=== PATIENT | female | born 1975 | race Two or more races ===

== ENCOUNTER 2020-04-14 12:58 | Outpatient (REF) | payer MEDICAID, SELFPAY ==
--- NOTE | 2020-04-14 13:03 | MM_ITS ---
EXAMINATION: MM SCREENING DIGITAL BREAST TOMOSYNTHESIS, BILATERAL CLINICAL INFORMATION: Screening. Asymptomatic. The lifetime risk of breast cancer based on the Tyrer-Cuzick Model is 6.4%. COMPARISON: Mammography: August 02, 2017 and May 18, 2016 TECHNIQUE: Digital breast tomosynthesis is performed in both the craniocaudal and mediolateral oblique views along with computer-aided detection (CAD). Synthesized 2D images are generated from the tomosynthesis. FINDINGS: There are scattered areas of fibroglandular density (ACR BI-RADS breast composition Category b). There is an increasing grouping of calcifications about the upper outer aspect of the right breast approximately 4 cm from the nipple. No new abnormal dominant mass is identified within the right breast. There is stable parenchymal pattern of the left breast without new abnormal mass or grouping of microcalcifications. MM/MM tomosynthesis screening BI IMPRESSION: Increasing grouping of calcifications about the upper outer aspect of the right breast. Recommend spot magnification views. ASSESSMENT: BI-RADS 0: Incomplete - Need Additional Imaging Evaluation RECOMMENDATION: 1. Additional views of the right breast. 2. Targeted ultrasound if warranted after review of the additional views. 3. Radiology department staff will contact the patient for additional imaging. This patient's information was entered into a reminder system with a target due date for their next mammogram.
== END 2020-04-14 12:59 | disposition home or self-care (01) ==
LOC: HO.MAMMO 12:58
PROVIDERS: PCP Internal Medicine; Visit Provider Internal Medicine
DX: Z12.31 Encounter for screening mammogram for malignant neoplasm of breast (principal)
CPT/HCPCS: 77063; 77067

== ENCOUNTER 2020-04-21 10:55 | Outpatient (REF) | payer MEDICAID, SELFPAY ==
--- NOTE | 2020-04-21 | MM_ITS ---
EXAMINATION: MM DIAGNOSTIC DIGITAL MAMMOGRAPHY, RIGHT CLINICAL INFORMATION: Calcifications. COMPARISON: Mammography: 04/14/2020 and studies dating back to 05/18/2016. TECHNIQUE: Digital mammography is performed in the following views: Spot magnification views in craniocaudal and 90-degree mediolateral projections. FINDINGS: There are scattered areas of fibroglandular density (ACR BI-RADS breast composition Category b). There is persistence of an indeterminate grouping of microcalcifications about the lateral aspect of the right breast approximately 4 cm from the nipple for which stereotactic core biopsy is recommended. Results are provided to the patient at time of visit by the technologist. Patient navigator notified referring provider's office on 04/11/2020. MM/MM added views RT IMPRESSION: Indeterminate grouping of calcifications lateral right breast for which stereotactic core biopsy is recommended. ASSESSMENT: BI-RADS 4: Suspicious. RECOMMENDATION: Stereotactic core biopsy right breast calcifications. This patient's information was entered into a reminder system with a target due date for their next mammogram.
== END 2020-04-21 10:56 | disposition home or self-care (01) ==
LOC: HO.MAMMO 10:55
PROVIDERS: Visit Provider Internal Medicine
DX: R92.1 Mammographic calcification found on diagnostic imaging of breast (principal)
CPT/HCPCS: 77065

== ENCOUNTER 2020-04-27 09:23 | Outpatient (REF) | payer MEDICAID, SELFPAY ==
--- NOTE | 2020-04-27 09:28 | MM_ITS ---
EXAMINATION: STEREOTACTIC TOMOSYNTHESIS-GUIDED VACUUM-ASSISTED BREAST BIOPSY, RIGHT SPECIMEN RADIOGRAPH, RIGHT POST PROCEDURE DIGITAL MAMMOGRAM, RIGHT CLINICAL INFORMATION: Right breast calcifications.. COMPARISON: April 21, 2020 and studies dating back to May 18, 2016. TECHNIQUE/PROCEDURE: Informed consent was obtained from the patient after discussion of the benefits, risks, and alternatives to biopsy today. Patient appeared to understand. Gave opportunity for questions. Patient signed consent form. BIOPSY TABLE: [employer] [facility] Affirm Prone Biopsy System. LESION: Calcifications upper outer aspect right breast. LOCAL ANESTHESIA: 8 mL 1% lidocaine; 18 mL 1% lidocaine with epinephrine. DERMATOTOMY: Single skin mellisa dermatotomy performed. NEEDLE: [employer] Eviva 9-gauge vacuum assisted core biopsy device. APPROACH: Lateral. TARGETIN-D karely. CORES: 18. CLIP: [employer] T-shaped marker. SPECIMEN RADIOGRAPH: Specimen radiograph is taken in separate room using digital mammography. The index calcifications are in the excised cores. POST PROCEDURE UNILATERAL DIGITAL MAMMOGRAM: The post biopsy mammogram is performed in separate room using separate digital mammography equipment from the biopsy procedure. Craniocaudal and 90 degree mediolateral views are obtained. The breasts are heterogeneously dense, which may obscure small masses (breast composition category: c). The clip marker is in position. The calcifications are markedly decreased at the biopsy site. No gross hematoma. The patient tolerated the procedure well. No immediate complications. Home instructions reviewed with the patient. Final pathology results are pending. MM/MM stereotactic loc RT IMPRESSION: 1. Digital tomosynthesis-guided core biopsy right breast with clip placement. 2. Specimen radiograph taken and post procedure mammogram. There is satisfactory positioning of the biopsy clip. 3. Final pathology results pending. An addendum report will be issued.
== END 2020-04-27 09:24 | disposition home or self-care (01) ==
LOC: HO.MAMMO 09:23
PROVIDERS: PCP Internal Medicine; Visit Provider Surgery
DX: R92.8 Other abnormal and inconclusive findings on diagnostic imaging of breast (principal); R92.1 Mammographic calcification found on diagnostic imaging of breast
CPT/HCPCS: 19283; 88305; 99212; A4648

== ENCOUNTER → 2020-04-29 10:10 | Outpatient (REF) | payer MEDICAID, SELFPAY ==
--- NOTE | 2020-04-29 10:14 | ECG_ITS ---
Hook-up date: 2020-04-29 10:29:00 Duration: 47:59:00 Test Indications: PALPITATIONS Medications: 584360 QRS complexes 20 Ventricular ectopics which represent <1 % of total QRS comp. 32 Supraventricular ectopics which represent <1 % of total QRS comp. * Paced QRS complexs which represent % of total QRS comp. VENTRICULAR ECTOPY 20 Isolated 0 Bigeminal Cycles 0 Couplets 0 Runs 0 Beats in Runs * Beats LONGEST at * BPM at :: -- * Beats FASTEST at * BPM at :: -- SUPRAVENTRICULAR ECTOPY 32 Isolated 0 Couplets 0 Runs 0 Beats in Runs * Beats LONGEST at * BPM at :: -- * Beats FASTEST at * BPM at :: -- HEART RATES 63 MIN at 06:23:57 2020-04-30 85 AVG 134 MAX at 10:53:34 2020-04-29 LONGEST RR 0.9920 secs at 06:21:24 2020-04-30 S-T LEVELS Channel 1 - 128 mm at 10:29:00 2020-04-29 - 128 mm at 10:29:00 2020-04-29 Channel 2 - 128 mm at 10:29:00 2020-04-29 - 128 mm at 10:29:00 2020-04-29 Channel 3 - 128 mm at 02:94:81 -- - 128 mm at 02:94:81 Underlying rhythm is sinus; Average ventricular rate 85/min; range 63-134/min; Rare, isolated, supraventricular and ventricular ectopy; No sustained arrhythmias; Patient did not report any symptoms in the diary Referred By: Karen Burns Overread By: RAVI MORALES
== END ==
LOC: HO.CARD 10:10
PROVIDERS: Visit Provider Internal Medicine
DX: R00.2 Palpitations (principal); R30.0 Dysuria
CPT/HCPCS: 93225; 93226

== ENCOUNTER → 2020-05-04 10:42 | Outpatient (BNVA) | payer MEDICAID, SELFPAY | PROVIDERS: PCP Internal Medicine; Visit Provider Surgery | DX: R92.8 Other abnormal and inconclusive findings on diagnostic imaging of breast (principal); Z98.890 Other specified postprocedural states | CPT/HCPCS: 99212 ==

== ENCOUNTER → 2020-05-05 15:58 | Outpatient (BNVA) | payer MEDICAID, SELFPAY | PROVIDERS: PCP Internal Medicine; Referring Provider Internal Medicine; Visit Provider Internal Medicine Gastroenterology | DX: Z76.89 Persons encountering health services in other specified circumstances (principal) ==

== ENCOUNTER 2020-05-16 08:32 | Outpatient (REF) | payer MEDICAID, SELFPAY ==
[2020-05-16 13:10] LABS: Imm Gran Abs Auto 0.01 X10*3/uL (0.00-0.03); Imm Gran Pct Auto 0.2 % (0.0-0.4); MANUAL DIFF FLAG SCAN; Mean Platelet Volume 11.3 fL (9.4-12.3); Neutrophils Percent Auto 62.5 % (45-73); PLT CLUMP 1; Red Cell Distribution Width 12.7 % (11.0-16.0); SCAN SMEAR FLAG 1
[2020-05-16 13:12] LABS: Basophils Percent Auto 0.2 % (0-2); Eosinophils Absolute Auto 0.1 X10*3/uL (0.0-0.4); Eosinophils Percent Auto 1.9 % (0-4); Hematocrit 38.8 % (37-47); Hemoglobin 12.7 g/dl (12.0-16.0); Lymphocytes Absolute Auto 1.1 X10*3/uL (1.2-4.9); Lymphocytes Percent Auto 26.2 % (20-40); Mean Corpuscular HGB Conc 32.7 g/dl (31.0-35.0); Mean Corpuscular Hemoglobin 29.1 pg (27.0-33.0); Monocytes Absolute Auto 0.4 X10*3/uL (0.1-1.2); Neutrophils Absolute Auto 2.7 X10*3/uL (2.0-8.3); Platelet Count 115 X10*3/uL (160-400); Red Blood Count 4.36 X10*6/uL (4.20-5.50); White Blood Count 4.3 X10*3/uL (4.8-10.8)
[2020-05-16 13:16] LABS: INTERNATIONAL NORM RATIO 1.1 (0.9-1.1); Prothrombin Time 13.5 SEC (10.8-13.0)
[2020-05-16 13:39] LABS: Alanine Aminotransferase 35 U/L (0-31); Albumin Level 4.2 g/dL (3.5-5.0); Alkaline Phosphatase 69 U/L (39-117); Anion Gap 12 (12-20); Aspartate Amino Transferase 28 U/L (5-31); Bilirubin Total 0.5 mg/dL (0.0-1.0); Blood Urea Nitrogen 11 mg/dL (9-16); Calcium 9.2 mg/dL (8.4-10.2); Carbon Dioxide 29 mmol/L (22-29); Chloride 100 mmol/L (96-108); Estimated Glomerular Filt Rate > 60; Glucose Random 178 mg/dL (60-115); Lipase 35 U/L (8-78); Potassium 3.7 mmol/l (3.3-5.1); Sodium 137 mmol/L (135-145); Total Protein 7.3 g/dL (6.5-8.0)
== END 2020-05-16 08:33 | disposition home or self-care (01) ==
LOC: HO.LAB 08:32
PROVIDERS: PCP Internal Medicine; Visit Provider Internal Medicine Gastroenterology
DX: K74.60 Unspecified cirrhosis of liver (principal)
CPT/HCPCS: 36415; 80053; 83690; 85025; 85610

== ENCOUNTER 2020-05-24 09:26 | Outpatient (REF) | payer MEDICAID, SELFPAY ==
--- NOTE | 2020-05-24 09:29 | FL_ITS ---
EXAMINATION: FL BARIUM SWALLOW CLINICAL INFORMATION: Dysphagia COMPARISON: None TECHNIQUE: Barium swallow examination is performed using fluoroscopic evaluation in addition to multiple fluoroscopic spot views. The patient is imaged both upright and prone and using both thick and thin sulfate along with effervescent granules. Barium tablet was also administered. Fluoroscopy time: 1.1 minutes DAP: 8.9 Gycm2 Images: 59 FINDINGS: The swallowing mechanism is normal. No aspiration or penetration is seen. Esophageal motility is normal. No hernia is seen. No mass or stricture is seen. The barium tablet passed freely into the stomach. There is gastroesophageal reflux. The stomach appears distended. FL/FL barium swallow IMPRESSION: Gastroesophageal reflux. Distended stomach.
== END 2020-05-24 09:27 | disposition home or self-care (01) ==
LOC: HO.XRAY 09:26
PROVIDERS: Visit Provider Internal Medicine Gastroenterology
DX: R13.10 Dysphagia, unspecified (principal)
CPT/HCPCS: 74220

== ENCOUNTER 2020-05-31 10:33 | Outpatient (REF) | payer MEDICAID, SELFPAY ==
--- NOTE | 2020-05-31 10:36 | US_ITS ---
EXAMINATION: US ABDOMEN COMPLETE CLINICAL INFORMATION: Unspecified cirrhosis of liver. COMPARISON: Ultrasound limited abdomen with elastography 10/22/2019. Renal ultrasound 08/18/2019. CT abdomen and pelvis 07/22/2019. TECHNIQUE: Real-time imaging of the abdominal viscera. FINDINGS: PANCREAS: Visualized pancreas is homogeneous in echotexture. ABDOMINAL AORTA: The proximal, mid, and distal segments are normal in caliber. INFERIOR VENA CAVA: Visualized portions are normal. LIVER: The liver is enlarged with increased diffuse echogenicity. No focal lesion seen. The left lobe measures 16.3 cm. There is no intrahepatic biliary duct dilatation seen. Normal hepatopedal flow seen in the middle portal vein on Doppler exam GALLBLADDER: There are several gallbladder folds visualized. The gallbladder is physiologically distended without evidence of stones, sludge, polyps, wall thickening or pericholecystic fluid. COMMON BILE DUCT: Normal in caliber measuring 0.3 cm in diameter. RIGHT KIDNEY: There is an echogenic stone in the lower pole measuring 0.2 x 0.3 x 0.2 cm. No focal parenchymal lesions. The kidney measures 12.6 cm in maximum dimension. LEFT KIDNEY: There is an echogenic stone in the upper pole measuring 0.4 x 0.4 x 0.3 cm. There are echogenic pyramids. Normal cortical thickness seen. There is no hydronephrosis. No hydronephrosis or focal parenchymal lesions. The kidney measures 13.5 cm in maximum dimension. SPLEEN: The spleen is enlarged and measures 17.5 cm in maximum dimension. FREE FLUID: None. US/US abdomen complete IMPRESSION: 1. Bilateral echogenic renal calculi but no caliectasis seen. There is mild hydronephrosis right kidney. 2. There are echogenic pyramids of left kidney. 3. Mild hepatosplenomegaly.
== END 2020-05-31 10:34 | disposition home or self-care (01) ==
LOC: HO.US 10:33
PROVIDERS: Visit Provider Internal Medicine Gastroenterology
DX: K74.60 Unspecified cirrhosis of liver (principal)
CPT/HCPCS: 76700

== ENCOUNTER → 2020-07-07 09:28 | Outpatient (BNVA) | payer MEDICAID, SELFPAY | PROVIDERS: PCP Internal Medicine; Visit Provider Internal Medicine Gastroenterology | DX: Z76.89 Persons encountering health services in other specified circumstances (principal) ==

== ENCOUNTER → 2020-08-15 14:41 | Outpatient (REF) | payer MEDICAID, SELFPAY ==
--- NOTE | 2020-08-15 15:00 | CA_ITS ---
Transthoracic Echocardiogram Patient (Last, First, Middle): Barb Lo, Gender: Female Date of : 1975 Age: 45 Procedure Date: 08/15/2020 Procedure Type: Transthoracic Echocardiogram Location: OP Height: 162.56 cm Weight: 80.74 kg BSA: 1.86 m2 Heart Rate: bpm BP: 120 / 80 mmHg Heel Seater: MONIQUE Arteaga MD: Karen Burns MD Relations Liaison: Robin Dukes MD Symptoms: E11.9 TYPE 2 DM, I10 HTN, I49.1 ATRIAL PREMATURE DEPOLARIZAT Study Quality: Good ECG Rhythm: Sinus Conclusions: - Normal study Findings Left Ventricle Normal left ventricular size, thickness, and systolic function. The visually estimated ejection fraction is between 60-65%. Diastolic function is normal for age. Right Ventricle Normal right ventricular cavity size and systolic function. Atria Both atria are normal in size. Aortic Valve Normal aortic valve structure and function. There is no aortic valve stenosis. There is no aortic valve regurgitation. Mitral Valve Normal mitral valve structure and function. There is no mitral valve regurgitation. There is no mitral valve stenosis. Pulmonic Valve The pulmonic valve is normal. There is trace pulmonic valve regurgitation. Tricuspid Valve Normal tricuspid valve structure. There is trace tricuspid valve regurgitation. The right ventricular systolic pressure is normal. The right ventricular systolic pressure is 26 mmHg. Normal right atrial pressure. There is no evidence of pulmonary hypertension. Great Vessels All visible segments of the aorta are normal in size. The visualized portions of the pulmonary artery and branches are normal. Venous The inferior vena cava is normal in size and collapses greater than 50% with inspiration. Pericardium/Pleural There is no evidence of pericardial effusion. Prior Study Comparison No prior study available for comparison. Measurements 2D Linear Measurements IVSd: 0.93 0.6-0.9/0.6-1.0 cm LVIDd: 4.53 3.9-5.3/4.2-5.9 cm LVIDd Index: 2.44 2.4-3.2/2.2-3.1 cm/m2 LVIDs: 2.88 2.0-3.6 cm LVPWd: 0.91 0.7-1.1 cm Ao Root: 3.30 2.1-3.5 cm LA Diam: 3.60 2.7-3.8/3.0-4.0 cm LAIDs Index: 1.94 1.5-2.3 cm/m2 LV Mass: 171.25 67-162/88-224 g LV Mass Index: 92.07 43-95/49-115 g/m2 LVOT Diam: 2.00 3.0+(-)1.3 cm 2D Systolic Function EF 4C: 65.20 >55% EF 2C: 67.80 >55% EF BiP: 66.30 >55% Mitral Valve MV Pk E: 0.76 MV PK A: 0.90 MV Decel Time: 111.00 E/A: 0.80 E'Lateral: 12.80 E'Medial: 8.49 E/E' Med: 8.90 E/E' Lat: 5.90 PHT: 32.00 MVA PHT: 6.88 Decel [place]: 6.84 Aortic Valve AoV Pk Ajay: 1.49 AoV Mn Ajay: 1.10 AoV VTI: 0.30 AoV Pk Grad: 9.00 Aov Mn Grad: 5.00 LENO Cont.VTI: 2.59 LVOT LVOT Pk Ajay: 1.23 LVOT Mn Ajay: 0.79 LVOT VTI: 0.25 LVOT Pk Grad: 6.00 LVOT Mn Grad: 3.00 LVOT Diam: 2.00 LVOT Area: 3.14 Diastolic Function MV Pk E: 0.76 MV Pk A: 0.90 E/A: 0.80 E'Medial: 8.49 E/E' Med: 8.90 E' Laterial: 12.80 E/E' Lat: 5.90 Tricuspid Valve TR Pk Ajay: 2.41 TR Pk Grad: 23.00 RA Press: 3.00 RVSP: 26.00 Great Vessels Aorta Ao Root-2D: 3.30 2.0-3.7 cm Ao Asc: 3.00 2.1-3.4 cm Ao Arch: 2.80 Updated in Other Vendor System with Status of Final Robin Dukes MD electronically signed on 08/16/2020 9:33:15 AM with status of Final
== END ==
LOC: HO.CARD 14:41
PROVIDERS: PCP Internal Medicine; Visit Provider Internal Medicine
DX: I49.1 Atrial premature depolarization (principal); I10 Essential (primary) hypertension; E11.9 Type 2 diabetes mellitus without complications
CPT/HCPCS: 93306

== ENCOUNTER → 2020-10-05 09:52 | Outpatient (REF) | payer MEDICAID, SELFPAY | LOC: HO.SL 09:52 | PROVIDERS: PCP Internal Medicine; Visit Provider Internal Medicine | DX: G47.33 Obstructive sleep apnea (adult) (pediatric) (principal); R06.00 Dyspnea, unspecified; R06.83 Snoring | CPT/HCPCS: 95806 ==

== ENCOUNTER 2021-08-22 09:18 | Emergency (ER) | payer MEDICAID, SELFPAY ==
--- NOTE | ~2021-08-22 | XR_ITS ---
EXAMINATION: XR LUMBOSACRAL SPINE CLINICAL INFORMATION: Fall. Back pain. COMPARISON: None TECHNIQUE: Three views of the lumbosacral spine. FINDINGS: The vertebral bodies and posterior elements are normal. The disc spaces are preserved and the vertebral alignment is normal. The paraspinal soft tissues are normal. XR/XR lumbar spine 2-3V IMPRESSION: Unremarkable examination.
[2021-08-22 09:34] VITALS: BP 170/95; PULSE 86; RESP 18; TEMP 36.6; O2SAT 99; BMI 28.9
[2021-08-22 10:16] LABS: Appearance Urine HAZY; Color Urine YELLOW; Glucose Urine UA 500 MG/DL (NEG); Leukocyte Esterase Urine NEG (NEG); Nitrite Urine NEG (NEG); Urine Blood NEG (NEG); Urine Ketones NEG (NEG); Urine Protein NEG (NEG-TRACE)
[2021-08-22] MEDS: Lidocaine 4 % Patch ADH..PATCH 1 PATCH TRANSDERMA (10:23)
[2021-08-22] MEDS: NaPROXEN 500 MG TABLET PO (10:23)
[2021-08-22] MEDS: diazePAM 5 MG TABLET 10 MG PO (10:23)
--- NOTE | 2021-08-22 11:14 | ED.FALL ---
HPI - Fall General Chief Complaint: Fall Stated Complaint: fall/pain in lower back Time Seen by Provider: 08/22/21 09:51 Source: patient and family Mode of arrival: ambulatory Limitations: language barrier (Turkmen-speaking) History of Present Illness HPI Narrative: 46-year-old female with a past medical history of type 2 diabetes reports that she is not on any oral or insulin due to her doctor took her off due to it was giving her multiple side effects, hypertension, fibromyalgia, IBS and chronic constipation who is Turkmen-speaking presenting to the ED with spouse at bedside with complaints of lower back pain after she had a mechanical fall on Saturday night were she was trying to stand up but she slipped when she tried to stand up and she hit the hard part of the couch in her lower right side of her back. Since then she has been having pain. She denies head injury or loss of consciousness. She denies being on any blood thinners. She denies any neck injury or upper back injury or pain. She denies any extremity injuries or any other injuries complaints or concerns at this time. She denies any urinary bowel incontinence or retention. She denies any IV drug use or any fevers or radiation of the pain or any other symptoms complaints or concerns or injuries. MD complaint: fall Onset (ago): day(s) Fall from: other (She was transitioning from sitting to standing when she fell) Fall witnessed: yes, by family Place fall occurred: home Loss of consciousness: none Prolonged down time: no Symptoms prior to fall: none Context: tripped/slipped Location of injury: back Severity: moderate Quality: aching and spasming Associated symptoms (after fall): denies Related Data Home Medications Medication Instructions Recorded Confirmed lisinopril 5 mg tablet 5 mg PO DAILY 04/27/20 07/07/20 cholecalciferol (vitamin D3) 50 50 mcg PO DAILY 05/05/20 07/07/20 mcg (2,000 unit) capsule trazodone 50 mg tablet 50 mg PO BEDTIME 05/05/20 07/07/20 glimepiride 4 mg tablet 4 mg PO BID tab 07/07/20 07/07/20 Previous Rx's Medication Instructions Recorded omeprazole 20 mg capsule,delayed 20 mg PO BID 30 Days #60 cap 05/05/20 release sennosides 8.6 mg-docusate sodium 1 tab-cap PO BEDTIME 30 Days #30 07/07/20 50 mg tablet (Senna with Docusate tab Sodium) diazepam 10 mg tablet (Valium) 10 mg PO Q8H PRN #14 tab 08/22/21 lidocaine 5 % topical patch 1 patch TOPICAL DAILY #15 ea 08/22/21 (Lidoderm) metformin 500 mg tablet 500 mg PO BID #60 tab 08/22/21 naproxen 500 mg tablet 500 mg PO BID PRN #14 tab 08/22/21 Allergies Allergy/AdvReac Type Severity Reaction Status Date / Time hydrocodone [From VICODIN] Allergy Unknown RASH Verified 08/22/21 09:34 penicillin G Allergy Unknown Rash Verified 08/22/21 09:34 simvastatin [SIMVASTATIN] Allergy Unknown RASH Verified 08/22/21 09:34 Review of Systems Review of Systems: Constitutional : No trauma, No Weight loss, No Fever, No Chills, ENT/Mouth : No Hearing loss, No Ear Pain, No Nasal Congestion, No Sinus Pain, No Hoarseness, No sore throat, No Rhinorrhea, No Swallowing Difficulty Cardiovascular : No Chest Pain, No SOB Respiratory : No Cough, No Dyspnea Gastrointestinal : No Nausea, No Vomiting, No Diarrhea, No abdominal Pain, No Hematochezia, No Melena Genitourinary : No Dysuria, No Urinary Frequency, No Hematuria, No Urinary or Bowel Incontinence/retention Musculoskeletal : + Back pain, No neck pain, No joint stiffness, No joint swelling Skin : No Skin Lesions, No rash or signs of infection Neuro : No Weakness, No radiation, No Numbness, No Paresthesias, No headache, no loss of bowel or bladder incontinence, no saddle anesthesia, Focal weakness, No radiation Denies history of IV drug usage. Yes all other systems are reviewed and are negative [facility] Past Medical History Attestation statement: The following information was validated with the patient. Medical History Abnormal mammogram of right breast Kidney stones Surgical History History of colonoscopy History of tubal ligation Hx of endoscopy Hx of removal of ovary Family History Family History Maternal Grandmother History of cancer of uterus History of breast cancer Father No problems noted. Mother Family history of high blood pressure Hx of diabetes insipidus Social History Social History Alcohol intake: never Advance Directives: No Advance Directives Information Provided: No Physical Exam Vital Signs: Vital Signs: Last Vital Signs Temp 97.8 F 08/22/21 09:34 Pulse 86 08/22/21 09:34 Resp 18 08/22/21 09:34 BP 170/95 H 08/22/21 09:34 Pulse Ox 99 08/22/21 09:34 BMI result Body Mass Index 28.9 vital signs have been reviewed as normal and appeared to be correct. Blood pressure normal. Heart rate normal. Respiration rate normal. Temperature normal. Oxygen saturation normal. Appearance: Alert. Oriented X3. No acute distress. Head: Normal external exam. Normocephalic. Atraumatic. No Schrader signs noted. No raccoon eyes noted Eyes: PERRLA. EOMI. Conjunctiva and sclera normal. Eyelids normal. ENT: EAC normal. TM's Normal. Pharynx normal. Uvula midline. Moist mucous membranes. No trismus noted. No drooling noted. No muffled voice noted. Neck: Normal inspection. Neck supple. FROM. No adenopathy. Thyroid Normal. No meningeal signs. No neck mass noted. CVS: Normal heart rate and rhythm. Heart sound normal. No murmurs noted. Pulses normal throughout. Respiratory: No respiratory distress. Painless inspiration. Breath sounds normal. No wheezes/rales/rhonchi noted. Chest nontender. No accessory muscle usage noted or decreased air movement noted. Abdomen: Soft and nontender. Bowel sounds normal in all 4 quadrants. No distention noted. No organomegaly noted. No visible injury noted. Back: No CVA tenderness. Full range of motion noted. No obvious deformities, or edema. Mild para-spinal muscular tenderness from lumbar region to coccyx. Full ROM in back and lower extremities. 5/5 strength hip extension/flexion, abduction, adduction. Mild Lumbar pain with hip flexion against resistance. Straight leg raise test negative on right; Straight leg raise test negative on left; Reflexes normal ankle and knee bilaterally; EHL motor strength normal bilaterally. No rashes/lesion/induration/fluctuance or signs infection noted. Skin: Skin warm and dry. Normal skin color. Normal skin turgor. No rashes/lesions/lacerations noted. Extremities: No lower extremity edema. Extremities exhibit normal range of motion. Extremities nontender. Neuro: Oriented X 3. No motor deficit. No sensory deficit. Reflexes normal. Patient has a normal steady gait. Course Course Course Narrative: 10am - 46-year-old female with a past medical history of type 2 diabetes reports that she is not on any oral or insulin due to her doctor took her off due to it was giving her multiple side effects, hypertension, fibromyalgia, IBS and chronic constipation who is Turkmen-speaking presenting to the ED with spouse at bedside with complaints of lower back pain after she had a mechanical fall on Saturday night were she was trying to stand up but she slipped when she tried to stand up and she hit the hard part of the couch in her lower right side of her back. Since then she has been having pain. Patient also reports increased urinary urgency/frequency over the past week. She denies any other injuries complaints or concerns at this time. On exam patient has paraspinous musculature pain no obvious signs of trauma step-offs or deformities. There is no rashes noted. No ecchymosis/abrasions/lacerations or signs of infection noted. She has a normal steady gait. Therefore will obtain an x-ray of lumbar spine provide 10 mg of Valium and 500 mg naproxen and Lidoderm patch and re-evaluate. - X-ray obtained of lumbar spine and negative for any acute processes. - UA was obtained and revealed 500 glucose otherwise no evidence of UTI. - and due to patient reporting that she is not on any medications for her type 2 diabetes will obtain POC then re-evaluate. Reevaluation(s) Reevaluation #1: - POC in the 170s therefore at this time I discussed this with the patient that she does not need any insulin at this time although she should start taking her previously prescribed medications she reports that she was taking metformin 500 mg twice a day and she is requesting me to give her a refill for that therefore will send a script to her pharmacy for metformin 500 mg to take twice a day and explained her that she should follow-up with her doctor for further evaluation treatment and any additional medication and to return if any new or worsening symptoms to follow up with primary care patient understands agrees with this plan. Time: 11:22 [facility] - Fall Medical Records Attestation: I reviewed the patient's medical records. Lab Data Attestation: I reviewed the patient's lab results. Labs: Lab Results 08/22/21 Range/Units 09:56 Urine Color YELLOW Urine Appearance HAZY Urine pH 6.0 (5.0-8.0) Ur Specific [place] 1.020 (1.005-1.025) Urine Protein NEG (NEG-TRACE) MG/DL Urine Glucose (UA) 500 H (NEG) MG/DL Urine Ketones NEG (NEG) MG/DL Urine Blood NEG (NEG) Urine Nitrite NEG (NEG) Ur Leukocyte Esterase NEG (NEG) Imaging Data Lumbar spine x-ray: Attestation: I personally reviewed and interpreted this imaging study as follows: Radiologist's impression: FINDINGS: The vertebral bodies and posterior elements are normal. The disc spaces are preserved and the vertebral alignment is normal. The paraspinal soft tissues are normal. XR/XR lumbar spine 2-3V IMPRESSION: Unremarkable examination. Discharge Plan Discharge Clinical Impression: Fall, Lumbar spine strain, Medication refill Patient Disposition: Home, Self-Care Instructions: Fall Prevention for Older Adults (ED), Low Back Strain (ED), Lower Back Exercises (ED) Additional Instructions: I will restart her back on your metformin that your report you take 500 mg twice a day. Please follow-up with her primary care provider as soon as possible for further evaluation treatment for your diabetes management return if any new or worsening symptoms. Prescriptions: New metformin 500 mg tablet 500 mg PO BID Qty: 60 0RF diazepam [Valium] 10 mg tablet 10 mg PO Q8H PRN (Reason: muscle spasm) Qty: 14 0RF naproxen 500 mg tablet 500 mg PO BID PRN (Reason: pain) Qty: 14 0RF lidocaine [Lidoderm] 5 % adhesive patch,medicated 1 patch topical DAILY Qty: 15 0RF Rx Instructions: leave on most painful area for up to 12 hrs. May be substituted No Action lisinopril 5 mg tablet 5 mg PO DAILY 0RF cholecalciferol (vitamin D3) 50 mcg (2,000 unit) capsule 50 mcg PO DAILY 0RF trazodone 50 mg tablet 50 mg PO BEDTIME 0RF omeprazole 20 mg capsule,delayed release(DR/EC) 20 mg PO BID 30 Days Qty: 60 3RF sennosides-docusate sodium [Senna with Docusate Sodium] 8.6-50 mg tablet 1 tab-cap PO BEDTIME 30 Days Qty: 30 3RF glimepiride 4 mg tablet 4 mg PO BID 0RF Referrals: Karen Burns MD [Primary Care Provider] - 2 days Stand Alone Forms: Work/School Release Print Language: Turkmen
[2021-08-22 11:16] LABS: UPreg QC Valid YES
[2021-08-22 11:18] LABS: Urine Pregnancy NEGATIVE (NEGATIVE)
[2021-08-22 11:23] LABS: Glucose, Whole Blood 175 mg/dL (60-115)
== END 2021-08-22 11:28 | disposition home or self-care (01) ==
PROVIDERS: Physician Assistant Medical; Emergency Provider Emergency Medicine; PCP Internal Medicine
DX: S39.012A Strain of muscle, fascia and tendon of lower back, initial encounter (principal); W01.0XXA Fall on same level from slipping, tripping and stumbling without subsequent striking against object, initial encounter; Y93.9 Activity, unspecified; Y92.9 Unspecified place or not applicable; Y99.9 Unspecified external cause status; Z76.0 Encounter for issue of repeat prescription; Z79.899 Other long term (current) drug therapy
CPT/HCPCS: 72100; 81003; 81025; 82947; 99283; 99284

== ENCOUNTER 2021-11-18 12:08 | Emergency (ER) | payer MEDICAID, SELFPAY ==
--- NOTE | ~2021-11-18 | XR_ITS ---
EXAMINATION: XR FOOT, LEFT CLINICAL INFORMATION: Pain when ambulating COMPARISON: None TECHNIQUE: 3 views of the left foot. FINDINGS: There are enthesophytes at the posterior and plantar surfaces of the calcaneus. Bones have normal alignment throughout the foot. An accessory navicular ossification center and os peroneum are noted. The osseous spurring of the calcaneus at the margin of the calcaneocuboid joint might be secondary to an old healed avulsion fracture in this area. The Chopart and Lisfranc joints are intact. An acute oblique fracture of the diaphysis of the proximal phalanx of the second toe is not significantly displaced. There is mild osteoarthrosis of the great toe MTP joint. XR/XR foot LT min 3V IMPRESSION: Acute, oblique fracture of the proximal phalanx of the second toe is not significantly displaced. Otherwise, no acute osseous injury in the foot.
[2021-11-18 12:12] VITALS: BP 165/82; PULSE 84; RESP 18; TEMP 35.6; O2SAT 98; BMI 29.9
--- NOTE | 2021-11-18 12:39 | ED.GENADULT ---
HPI - General Adult General Chief complaint: Extremity Injury, Lower Stated complaint: L Foot Pain S/P Injury 11/18/21 Time Seen by Provider: 11/18/21 12:39 Source: patient Mode of arrival: wheelchair Limitations: no limitations History of Present Illness HPI narrative: Patient is a 46 year old female presenting to the emergency department today with left 2nd toe pain. Patient states that earlier today, she stubbed her toe while vacuuming and it still hurts. Patient denies any dizziness, lightheadedness, abdominal pain, nausea, vomiting, fever, chills, blurry vision, double vision, loss of vision, chest pain, difficulty breathing, shortness of breath, back pain, night sweats, pain with urination, increased urinary frequency, increased urinary urgency, blood in her urine or stool, syncope or a near syncopal episode, bowel incontinence, bladder incontinence, bowel retention, bladder retention, or any other complaints at this time. Onset (ago): hour(s) Location: left and lower extremity Radiation: non-radiation Severity: mild Severity scale (1-10): 4 Quality: aching Pain Consistency: constant Relieving factors: none Exacerbating factors: movement Associated symptoms: denies other symptoms Treatments prior to arrival: none Related Data Home Medications Medication Instructions Recorded Confirmed lisinopril 5 mg tablet 5 mg PO DAILY 04/27/20 07/07/20 cholecalciferol (vitamin D3) 50 50 mcg PO DAILY 05/05/20 07/07/20 mcg (2,000 unit) capsule trazodone 50 mg tablet 50 mg PO BEDTIME 05/05/20 07/07/20 glimepiride 4 mg tablet 4 mg PO BID tab 07/07/20 07/07/20 Previous Rx's Medication Instructions Recorded omeprazole 20 mg capsule,delayed 20 mg PO BID 30 Days #60 cap 05/05/20 release sennosides 8.6 mg-docusate sodium 1 tab-cap PO BEDTIME 30 Days #30 07/07/20 50 mg tablet (Senna with Docusate tab Sodium) diazepam 10 mg tablet (Valium) 10 mg PO Q8H PRN #14 tab 08/22/21 lidocaine 5 % topical patch 1 patch TOPICAL DAILY #15 ea 08/22/21 (Lidoderm) metformin 500 mg tablet 500 mg PO BID #60 tab 08/22/21 naproxen 500 mg tablet 500 mg PO BID PRN #14 tab 08/22/21 Allergies Allergy/AdvReac Type Severity Reaction Status Date / Time hydrocodone [From VICODIN] Allergy Unknown RASH Verified 08/22/21 09:34 penicillin G Allergy Unknown Rash Verified 08/22/21 09:34 simvastatin [SIMVASTATIN] Allergy Unknown RASH Verified 08/22/21 09:34 Review of Systems Constitutional: Constitutional: Reports no additional constitutional complaints, Denies chills, Denies fever(s) and Denies night sweats Eyes: Eyes: Reports no additional eye complaints, Denies blurry vision, Denies change in vision, Denies diplopia, Denies eye discharge, Denies loss of vision and Denies eye pain ENT: Denies dizziness Cardiovascular: Cardiovascular: Reports no additional cardiovascular complaints, Denies chest pain, Denies lightheadedness, Denies Loss of Consciousness and Denies dyspnea Respiratory: Respiratory: Reports no additional respiratory complaints and Denies dyspnea Gastrointestinal: Gastrointestinal: Reports no additional gastrointestinal complaints, Denies abdominal pain, Denies melena, Denies hematochezia, Denies change in bowel habits and Denies change in stool character Genitourinary: Genitourinary: Denies hematuria, Denies urinary frequency, Denies dysuria, Denies urinary incontinence, Denies urinary hesitancy and Denies urinary urgency Musculoskeletal: Musculoskeletal: Reports no additional musculoskeletal complaints, Denies numbness and Denies tingling Comments: left toe pain Neurologic: Denies dizziness, Denies loss of vision, Denies numbness and Denies tingling Psychiatric: Psychiatric: Reports no additional psychiatric complaints Endocrine: Endocrine: Reports no additional endocrine complaints Hematologic/Lymphatic: Hematologic/Lymphatic: Reports no additional hematologic/lymphatic complaints Allergic/Immunologic: Allergic/Immunologic: Reports no additional allergic/immunologic complaints [facility] Past Medical History Attestation statement: The following information was validated with the patient. Source: old records reviewed Medical History Abnormal mammogram of right breast Kidney stones Surgical History History of colonoscopy History of tubal ligation Hx of endoscopy Hx of removal of ovary Family History Family History Maternal Grandmother History of cancer of uterus History of breast cancer Father No problems noted. Mother Family history of high blood pressure Hx of diabetes insipidus Social History Social History Alcohol intake: never Advance Directives: No Advance Directives Information Provided: No Physical Exam ED Vital Signs: Vital Signs - 24 hr 11/18/21 12:12 Temperature 96.0 F L Pulse Rate 84 Respiratory Rate 18 Blood Pressure 165/82 H Pulse Oximetry 98 BMI result Body Mass Index 29.9 Const General: cooperative, no acute distress, alert and awake Nutritional Appearance: well nourished Orientation/consciousness: patient oriented x3 Limitations: no limitations HENMT Head: Yes normal to inspection and Yes atraumatic Ears: hearing grossly normal bilaterally and external ears normal General nose exam: Normal external nose present, no nasal discharge noted and no epistaxis Face and sinus: Yes normal facial exam, No abrasion and No laceration Mouth: Normal oral and palatal mucosa present, no drooling and no muffled voice Eyes General: appearance normal, both eyes and all related structures Periorbital: periorbital findings normal Eyelids: Yes eyelids normal Conjunctivae: conjunctivae normal Pupils: Equal, round and reactive pupils present EOM: EOMs intact bilaterally Neck Neck: Yes normal visual inspection, Yes full ROM and Yes no lymphadenopathy Chest Chest palpation & inspection: normal inspection of the chest Resp Effort & Inspection: normal respiratory effort and able to speak in complete sentences Auscultation: clear to auscultation bilaterally Cardio Rate: regular rate Rhythm: regular rhythm GI Inspection: Yes normal to inspection Neuro General: patient oriented x3 and moves all extremities Cranial nerves: Yes Equal, round and reactive pupils present Cognition (Neuro): normal cognition Motor exam (neuro): 5/5 motor strength present throughout Sensory Exam: Normal double simultaneous stimulation for sensation Coordination: [id number] test normal Extrem Other: mild bruising to the web space between the left great toe and second toes General: Yes full ROM and Yes capillary refill normal Psych Appearance: grossly normal Mental Status: mental status grossly normal Affect: normal affect Attitude: cooperative Thought process: Normal thought process present Thought content: Normal thought content present Insight: Good insight present (Psych) Procedures Orthopedic Splinting/Casting Injury #1: Side: left Lower Extremity Injury Location: toe (2nd) Lower Extremity Immobilizer: post-op shoe Other Orthopedic Equipment: crutches Medical Decision Making MDM Narrative Medical decision making narrative: Patient is a 46 year old female presenting to the emergency department today with left 2nd toe pain. Patient's physical exam showed mild bruising to the web space between the first and second toes of the left foot but was otherwise unremarkable. Patient's left foot x-ray showed an acute fracture of the 2nd toe but was otherwise unremarkable. I explained my physical exam findings as well as all test results to the patient. I answered all questions asked by the patient. Patient's left foot was placed in a post-op shoe and the patient was given crutches and crutch instructions. I stressed the importance of the patient taking her medication as prescribed. I stressed the importance of the patient following up with her primary care provider and an orthopedic provider. I stressed the importance of the patient returning to the emergency department immediately if her symptoms were to worsen or if she were to develop any dizziness, shortness of breath, difficulty breathing, chest pain, blurry vision, loss of vision, nausea, vomiting, abdominal pain, fever, chills, back pain, or any other complaints. Patient verbalized agreement and understanding with this treatment plan and discharge. Differential Diagnosis Differential Diagnosis: toe fracture Medical Records Medical records reviewed: Yes I reviewed the patient's medical records. Imaging Data Left foot x-ray: Attestation: I personally reviewed and interpreted this imaging study as follows: My impression: Acute oblique fracture of the proximal phalanx of the second toe Radiologist's impression: EXAMINATION: XR FOOT, LEFT CLINICAL INFORMATION: Pain when ambulating? COMPARISON: None? TECHNIQUE: 3 views of the left foot. FINDINGS: There are enthesophytes at the posterior and plantar surfaces of the calcaneus. Bones have normal alignment throughout the foot. An accessory navicular ossification center and os peroneum are noted. The osseous spurring of the calcaneus at the margin of the calcaneocuboid joint might be secondary to an old healed avulsion fracture in this area. The Chopart and Lisfranc joints are intact. An acute oblique fracture of the diaphysis of the proximal phalanx of the second toe is not significantly displaced. There is mild osteoarthrosis of the great toe MTP joint. XR/XR foot LT min 3V IMPRESSION: Acute, oblique fracture of the proximal phalanx of the second toe is not significantly displaced. ? Otherwise, no acute osseous injury in the foot. Dictated By: Alfonso Celestin MD Signed By: Electronically signed by Alfonso Celestin MD 11/18/21 2559 Discharge Plan Discharge Clinical Impression: Fracture of toe Patient Disposition: Home, Self-Care Instructions: Crutch Instructions (ED), Toe Fracture (ED) Additional Instructions: Follow up with your primary care provider and an orthopedist. Return to the emergency department immediately if your symptoms worsen or if you develop any dizziness, shortness of breath, difficulty breathing, chest pain, blurry vision, loss of vision, nausea, vomiting, abdominal pain, fever, chills, back pain, or any other complaints. Prescriptions: No Action metformin 500 mg tablet 500 mg PO BID Qty: 60 0RF diazepam [Valium] 10 mg tablet 10 mg PO Q8H PRN (Reason: muscle spasm) Qty: 14 0RF naproxen 500 mg tablet 500 mg PO BID PRN (Reason: pain) Qty: 14 0RF lidocaine [Lidoderm] 5 % adhesive patch,medicated 1 patch topical DAILY Qty: 15 0RF Rx Instructions: leave on most painful area for up to 12 hrs. May be substituted lisinopril 5 mg tablet 5 mg PO DAILY 0RF cholecalciferol (vitamin D3) 50 mcg (2,000 unit) capsule 50 mcg PO DAILY 0RF trazodone 50 mg tablet 50 mg PO BEDTIME 0RF omeprazole 20 mg capsule,delayed release(DR/EC) 20 mg PO BID 30 Days Qty: 60 3RF sennosides-docusate sodium [Senna with Docusate Sodium] 8.6-50 mg tablet 1 tab-cap PO BEDTIME 30 Days Qty: 30 3RF glimepiride 4 mg tablet 4 mg PO BID 0RF Referrals: [facility] [place] [facility] [Provider Group] Karen Burns MD [Primary Care Provider] - Interventions: ED Discharge Assessment Last Done: 11/18/21 13:57 Discharge Date/Time: 11/18/21 13:59 Print Language: Peruvian
== END 2021-11-18 13:59 | disposition home or self-care (01) ==
PROVIDERS: Emergency Provider Emergency Medicine; PCP Internal Medicine
DX: S99.922A Unspecified injury of left foot, initial encounter (principal); Y29.XXXA Contact with blunt object, undetermined intent, initial encounter; Y93.E3 Activity, vacuuming; Y92.009 Unspecified place in unspecified non-institutional (private) residence as the place of occurrence of the external cause; Y99.9 Unspecified external cause status; Z79.899 Other long term (current) drug therapy
CPT/HCPCS: 73630; 99283

== ENCOUNTER → 2021-11-30 09:21 | Outpatient (BNVA) | payer MEDICAID, SELFPAY | PROVIDERS: PCP Internal Medicine; Visit Provider Physician Assistant | DX: S92.912A Unspecified fracture of left toe(s), initial encounter for closed fracture (principal) | CPT/HCPCS: 99202 ==

== ENCOUNTER 2022-03-26 13:02 | Emergency (ER) | payer MEDICAID, SELFPAY ==
[2022-03-26 13:12] VITALS: BP 157/69; PULSE 91; RESP 18; TEMP 36.9; O2SAT 98; BMI 28.3
[2022-03-26] MEDS: Ibuprofen 600 MG TABLET PO (13:18)
== END 2022-03-26 14:19 | disposition left against medical advice (07) ==
PROVIDERS: Emergency Provider Emergency Medicine; PCP Internal Medicine
DX: E11.65 Type 2 diabetes mellitus with hyperglycemia (principal); R51.9 Headache, unspecified; I10 Essential (primary) hypertension
CPT/HCPCS: 99282; 99283

== ENCOUNTER → 2022-04-10 13:51 | Outpatient (BNVA) | payer MEDICAID, SELFPAY | PROVIDERS: PCP Internal Medicine; Visit Provider Internal Medicine Endocrinology, Diabetes & Metabolism | DX: E11.9 Type 2 diabetes mellitus without complications (principal); K72.10 Chronic hepatic failure without coma; Z79.84 Long term (current) use of oral hypoglycemic drugs | CPT/HCPCS: 82947; 83036; 99202 ==

== ENCOUNTER → 2022-05-04 10:13 | Outpatient (BNVA) | payer MEDICAID, SELFPAY | PROVIDERS: PCP Internal Medicine; Visit Provider Registered Nurse Diabetes Educator | DX: E11.9 Type 2 diabetes mellitus without complications (principal) | CPT/HCPCS: 99211 ==

== ENCOUNTER → 2022-05-11 11:23 | Outpatient (BNVA) | payer MEDICAID, SELFPAY | PROVIDERS: PCP Internal Medicine; Visit Provider Urology | DX: N39.3 Stress incontinence (female) (male) (principal); N81.89 Other female genital prolapse; N20.0 Calculus of kidney; N95.2 Postmenopausal atrophic vaginitis | CPT/HCPCS: 51701; 51798; 99212 ==

== ENCOUNTER → 2022-05-22 10:54 | Outpatient (BNVA) | payer MEDICAID, SELFPAY | PROVIDERS: PCP Internal Medicine; Visit Provider Dietitian, Registered | DX: E11.9 Type 2 diabetes mellitus without complications (principal) | CPT/HCPCS: 97802 ==

== ENCOUNTER 2022-06-27 10:44 | Outpatient (REF) | payer MEDICAID, SELFPAY ==
--- NOTE | ~2022-06-27 | XR_ITS ---
EXAMINATION: XR ABDOMEN KUB CLINICAL INDICATION: Renal calculus. COMPARISON: Ultrasound report from 05/31/2020. TECHNIQUE: AP view of the abdomen. FINDINGS: No convincing evidence for radiopaque calculus overlying the kidneys. Some limitation from overlying stool. The bowel pattern is nonobstructing. XR/XR KUB IMPRESSION: No radiopaque calculus is seen. Limitation from overlying stool.
== END 2022-06-27 10:45 | disposition home or self-care (01) ==
LOC: HO.US 10:44
PROVIDERS: Visit Provider Urology
DX: N20.0 Calculus of kidney (principal)
CPT/HCPCS: 74018

== ENCOUNTER 2022-07-13 12:56 | Outpatient (REF) | payer MEDICAID, SELFPAY ==
--- NOTE | ~2022-07-13 | US_ITS ---
EXAMINATION: US RETROPERITONEAL LIMITED (RENAL ONLY) CLINICAL INFORMATION: Calculus of kidney. COMPARISON: X-ray KUB 06/27/2022. Ultrasound abdomen complete 05/31/2020. Ultrasound abdomen limited 10/22/2019. CT abdomen and pelvis 07/22/2019. TECHNIQUE: Real-time imaging of the kidneys. FINDINGS: RIGHT KIDNEY: 12.5 x 5.7 x 5.0 cm (SAG x AP x TRV). The kidney is normal in size, contour, and echogenicity. Renal cortical thickness is normal. Multiple small echogenic foci seen, the largest measuring 3 mm consistent with nonobstructing calculi. There is mild fullness in the collecting system but no gross hydronephrosis. No focal parenchymal lesions. LEFT KIDNEY: 13.3 x 6.2 x 4.9 cm (SAG x AP x TRV). The kidney is normal in size, contour, and echogenicity. Renal cortical thickness is normal. Two midpole echogenic foci seen measuring 3 and 2 mm in size. These could represent nonobstructing calculi. No focal parenchymal lesions or hydronephrosis. US/US renal BI IMPRESSION: Bilateral echogenic foci consistent with nonobstructing renal calculi. Many more calculi were seen on the CT scan from 2019. Mild fullness in the right collecting system without gross hydronephrosis.
== END 2022-07-13 12:57 | disposition home or self-care (01) ==
LOC: HO.US 12:56
PROVIDERS: Visit Provider Urology
DX: N20.0 Calculus of kidney (principal)
CPT/HCPCS: 76775

== ENCOUNTER 2022-08-08 12:20 | Outpatient (REF) | payer MEDICAID, SELFPAY ==
[2022-08-08 13:13] LABS: Estimated Average Glucose 240 mg/dL
[2022-08-08 14:24] LABS: Creatinine Urine 58.33 mg/dL; Microalbum/Creatinine Ratio Ur 27.4 ug/mg cr
== END 2022-08-08 12:21 | disposition home or self-care (01) ==
LOC: HO.LAB 12:20
PROVIDERS: PCP Internal Medicine; Visit Provider Internal Medicine Endocrinology, Diabetes & Metabolism
DX: E11.9 Type 2 diabetes mellitus without complications (principal)
CPT/HCPCS: 36415; 82043; 83036

== ENCOUNTER → 2022-08-09 10:09 | Outpatient (BNVA) | payer MEDICAID, SELFPAY | PROVIDERS: PCP Internal Medicine; Visit Provider Internal Medicine Gastroenterology | DX: Z13.89 Encounter for screening for other disorder (principal) ==

== ENCOUNTER → 2022-09-07 12:05 | Outpatient (BNVA) | payer MEDICAID, SELFPAY | PROVIDERS: PCP Internal Medicine; Visit Provider Dietitian, Registered | DX: E11.9 Type 2 diabetes mellitus without complications (principal) | CPT/HCPCS: 97803 ==

== ENCOUNTER 2023-01-03 09:17 | Outpatient (AMB) | payer MEDICAID, SELFPAY ==
--- NOTE | 2023-01-03 09:25 | A.OFFVIS_ITS ---
Intake Vital Signs 01/03/23 09:28 Height 5 ft 4 in Weight 180 lb BMI 30.9 BP 131/69 Blood Pressure Location Lt brachial Position Sitting Pulse 86 Intake Visit Reasons: cirrhosis/colon screening Intake Note: Patient follow up for Cirrhosis and colonoscopy screening. Patient cc: nauseas on and off, acid reflex come and go, some dysphagia on and off and constipation. Aeronautics Commission Director Required: Yes Aeronautics Commission Director Name: [facility] interpeter Accompanied by: Self / Same As Patient Allergies dulaglutide [From Trulicity] Allergy (Unknown, Verified 01/03/23 09:25) Rash hydrocodone [From VICODIN] Allergy (Unknown, Verified 01/03/23 09:25) RASH metformin Allergy (Unknown, Verified 01/03/23 09:25) Rash penicillin G Allergy (Unknown, Verified 01/03/23 09:25) Rash simvastatin [SIMVASTATIN] Allergy (Unknown, Verified 01/03/23 09:25) RASH Medication List - Last Reconciled 01/03/23 by Dustin Espinoza MD blood sugar diagnostic (FreeStyle Lite Strips) As directed test 4 times a day blood-glucose meter (FreeStyle Lite Meter kit) As directed cholecalciferol (vitamin D3) 50 mcg PO DAILY diazepam (Valium) 10 mg PO Q8H PRN estradiol (Vagifem) 10 mcg vaginal 2XW glyburide 10 mg PO BID insulin degludec (Tresiba FlexTouch U-100 insulin) 20 units (0.2 mL) subcut BEDTIME lancets (FreeStyle Lancets) As directed test 4 times a day lidocaine 5% (Lidoderm) 1 patch topical DAILY lisinopril 5 mg PO DAILY naproxen 500 mg PO BID PRN omeprazole 20 mg PO BID 30 days sennosides-docusate sodium 8.6-50 mg (Senna with Docusate Sodium) 1 tab-cap PO BEDTIME 30 days trazodone 50 mg PO BEDTIME HPI cirrhosis/colon screening HPI Details GI CLINIC VISIT FOR THIS 47-YEAR-OLD FEMALE FOR FOLLOW-UP OF LIVER CIRRHOSIS ?LABS IN [facility]?: 10/22/19 REVIEWED PLT 110, INR 1.1, CR 0.64, TB 0.7, AST 64, ALT 69. AP 80 ? HEPATITIS A B AND C SEROLOGIES WERE NEGATIVE ? GILDARDO, ANTI SMOOTH MUSCLE ANTIBODY, CELIAC SEROLOGIES, SLA WERE NEGATIVE ?IMAGING STUDIES:? 05/31/20 ABDOMINAL ULTRASOUND SHOWED: ? 1. Bilateral echogenic renal calculi but no caliectasis seen. There is ? mild hydronephrosis right kidney. ? 2. There are echogenic pyramids of left kidney. ? 3. Mild hepatosplenomegaly. 05/24/20 BARIUM SWALLOW SHOWED: The swallowing mechanism is normal. No aspiration or penetration is seen. Esophageal motility is normal. No hernia is seen. No mass or stricture is seen. The barium tablet passed freely into the stomach. There is gastroesophageal reflux. The stomach appears distended. ?10/22/19 ABDOMINAL ULTRASOUND SHOWED: ? Increased coarsened echotexture of the liver likely related to fatty infiltration. ? Hepatopedal flow within the main portal vein. ? Gallbladder sludge ? Elastography: Moderate to severe fibrotic stage. (F3-F4) ?ENDOSCOPIC STUDIES:?NONE IN [facility] ?TODAY'S VISIT: ? [facility] [employer], Birgit Continues to have intermittent dysphagia associated with hard foods. Denies regurgitation of food during episodes of dysphgia Rare heartburn depending on diet. Can have abd pain sometimes Complains of chronic constipation and has a BM daily and sometimes none for 1-2 days. Denies rectal bleeding PAST VISIT: ? Lab, Barium swallow and US results were reviewed with the patient. ? ? ? Swallowing problems are a little better. ? ? ? Complains of cramping lower abdominal pain associated with bowel movements. She has to throw herself on the floor due to bad cramping. Pain resolves after patient has a bowel movement. Has a bowel movement every 3-4 days with passage of hard stools associated with straining. ?Notes post prandial abdominal pain followed by diarrhea. ? ? ? Has symptoms after eating anything and has excessive burping and a lot of gas come out. ? ? ? Intermittent choking associated with swallowing her saliva and denies dysphagia with food intake. ? ? ? Has symptoms even when sleeping and has to get up - notes heart is beating faster. ? ? ? She may have anxiety. ? ? ? Appetite has changed - cant eat like she used to and has lost 5-10 lbs. ? Sometimes she feels swollen when she eats and feels food is not being digested when she eats. ? Intermittent post prandial nausea ? Intermittent throat irritation without clear dysphagia. ? Patient denies symptoms of vomiting, change in weight. ? Notes decreased appetite related to anxiety. ? Notes diarrhea alternating with constipation and normal stools ? Denies recent black stools or rectal bleeding. ? Patient denies major cardiac or pulmonary problems, ? Pt admits to loud snoring and has not been tested for sleep apnea ? Denies problems with anesthesia in the past. ? Denies being on chronic anticoagulation. ? Both parents had cancer of colon and intestine - Dad had surgery and . ? Sister with colon polyps at age 50. ?PAST EGD/COLONOSCOPY: Admits to having an EGD and a Colonoscopy at [facility] > 10 yrs ago. ? Per pt she had a bacterial infection in the stomach and was treated with an antibiotic. ? Intestines were inflammed - no specific treatment was given. ?PAST GI HISTORY BY REVIEW OF MEDICAL RECORDS: ? 09/14/[address] [place]: ? 44 yr oldf with hx of DM, being called for assessment ? She feels well but does admit to abdominal discomfort on eating and cramps on going to bathroom ? can be worse with any type of food, ? occ nausea ? no memory complaints ? no melena, no rectal bleeding ? no abdominal swelling ? last LFT 2018- mild ALT, ASt elevation, hep B, C negative, plts 134 ? CT 06/2019- cirrhosis, focal fat sparing liver, renal stones, small varices (cirrhosis noted on Ct 2018 as well) ? Prior care at [facility], cirrhosis assumed to be due to [facility] Medical History (Updated 05/11/22 @ 14:42 by Tex Le MD) Abnormal mammogram of right breast Kidney stones Kidney stones Surgical History History of colonoscopy History of tubal ligation Hx of endoscopy Hx of removal of ovary Family History Maternal Grandmother History of cancer of uterus History of breast cancer Father No problems noted. Mother Family history of high blood pressure Hx of diabetes insipidus Social History Alcohol intake: never Current occupational status: disabled Current occupation: left hand Review of Systems Const All systems reviewed & are unremarkable except as noted in HPI and below Physical Exam Vital Signs: Last Vital Signs Pulse 86 01/03/23 09:28 BP 131/69 01/03/23 09:28 BMI result Body Mass Index 30.9 Const General: healthy appearing and no acute distress Nutritional Appearance: obese Orientation/consciousness: patient oriented x3 Limitations: language barrier HEENT Head: Yes normal to inspection Ears: hearing grossly normal bilaterally Eyes Sclerae: sclerae normal Pupils: Equal, round and reactive pupils present Neck Neck: Yes normal visual inspection Chest Chest palpation & inspection: normal inspection of the chest Resp Effort & Inspection: normal respiratory effort Auscultation: clear to auscultation bilaterally Cardio Palpation: normal PMI Rate: regular rate Rhythm: regular rhythm Heart sounds: S1 normal heart sound present, S2 normal heart sound present and no murmurs GI Palpation (GI): Soft to palpation, nontender and No hepatosplenomegaly present Auscultation: normal bowel sounds Rectal Exam - Female: deferred Skin General skin exam: no rashes or lesions noted Neuro General: patient oriented x3, gait normal and moves all extremities Cranial nerves: Yes Equal, round and reactive pupils present Psych Appearance: grossly normal Mental Status: mental status grossly normal Immunizations Engerix-B (PF) Performing Provider: Dustin Espinoza MD Administered by: Poly Baird RN on 01/03/23 09:59 Dose Route Admin Location Lot Number Expiration Date NDC Batching Operator 1 mL IM Right Deltoid [id number] 09/05/24 [id number] [employer] VIS Given Date VIS Provided VIS Publication Date 01/03/23 Single Vaccine 22 Eligibility Eligibility Date Funding Source Not [facility] Eligible 01/03/23 Private Assessment & Plan Assessment & Plan (1) Chronic constipation: Code(s): K59.09 - Other constipation (2) Dyspepsia: Code(s): R10.13 - Epigastric pain (3) Dysphagia: Comment: Patient will be scheduled for a barium swallow Code(s): R13.10 - Dysphagia, unspecified (4) Postprandial epigastric pain: Code(s): R10.13 - Epigastric pain (5) IBS (irritable bowel syndrome): Code(s): K58.9 - Irritable bowel syndrome without diarrhea (6) Cirrhosis of liver without ascites: Code(s): K74.60 - Unspecified cirrhosis of liver Plan 47 year-old Georgian speaking female with DM, htn followed in GI for? compensated cirrhosis likely due to non alcoholic fatty liver disease (NAFLD) given hx of DM. Hepatitis B and C serologies and workup for metabolic causes of chronic liver disease was negative. Meld score is 7. She has compensated cirrhosis by imaging with small varices, 06/12 Abdominal ultrasound? Bilateral echogenic renal calculi but no caliectasis seen. There is mild hydronephrosis right kidney. ? 2. There are echogenic pyramids of left kidney. ? 3. Mild hepatosplenomegaly. Py was referred to Urology to FU on mild hydronephrosis. She will be scheduled for an upper endoscopy to screen for esophageal varices once risk of exposure to COVID-19 infection is reduced. ?REDUCING THE RISK OF LIVER PROGRESSION:? patient was advised to completely avoid use of alcohol and lose weight. Being slightly overweight puts her at risk of progressive steatotic liver injury and she needs to try to lose 10% of her weight. She should restrict the calorie intake, most importantly intake of sugar /sucrose/fructose ?HCC SURVEILLANCE:?? the patient is at risk of developing hepatocellular carcinoma given the presence of cirrhosis and need 6 monthly imaging surveillance with either abdominal ultrasound (US) or multiphase cross-sectional imaging (CT or MRI). ?last Abd US 05/2020 had shown no focal liver lesions suspicious of HCC.? She will be scheduled for follow-up? liver ultrasound in 6 months for ongoing surveillance. VACCINATIONS:??She does not have serological evidence of prior exposure to or vaccination against hepatitis A or hepatitis B. given lack of serological evidence of immunity, she needs to undergo vaccination against both hepatitis a and hepatitis B (with a series of 3 doses at 0, 1 and 6 months). she should also remain up-to-date with all age-appropriate vaccinations including vaccination against pneumococcus.? As we no longer have vaccines available not Clinic, I requested PCP to arrange this. SURVEILLANCE FOR GASTROESOPHAGEAL VARICES: I will plan an EGD in summer of 2020 . QUESTION OF LIVER TRANSPLANTATION:?? As she has never had any hepatic dec ompensation, continues to have good hepatic synthetic function with meld score of 7, liver transplantation does not need to be considered at this time. 01/03/23 Pt was advised to schedule an EGD (dysphagia) and a colonoscopy. (colon cancer screening) FU in 6 months Orders: Orders US abdomen complete Today K74.60 - Unspecified cirrhosis of liver Vitamin D 25-OH Total Today K74.60 - Unspecified cirrhosis of liver Vitamin B12 and Folate Today K74.60 - Unspecified cirrhosis of liver Prothrombin Time INR Today K74.60 - Unspecified cirrhosis of liver Complete Blood Count Auto Diff Today K74.60 - Unspecified cirrhosis of liver Comprehensive Met. Panel Today K74.60 - Unspecified cirrhosis of liver Hepatitis B Adult Immunization Today Z23 - Encounter for immunization Medications: New bisacodyl (Dulcolax (bisacodyl)) Take 4 tablets at 12 pm starting 1 day before colonoscopy appointment 10 mg (2 x 5 mg) PO ONCE 2 days 4 tabs 0RF polyethylene glycol 3350 (Miralax) Mix Miralax with 64 oz(8 cups) of Crystal light. Take 2 tablets of Dulcolax qt 12 pm. Wait to have your 1st bowel movement, then begin drinking Miralax. Drink a glass of Miralax every 10-15 minutes until you are finished. You will drink at least another 4 cups of clear liquid of your choice over the next 2 hours. Please drink as many clear liquids as possible You may have clear liquids up to four hours before your procedure 17 grams PO DAILY 1 day 238 grams 0RF colon prep Refilled omeprazole 20 mg PO BID 30 days 60 caps 3RF R10.13 - Epigastric pain, R13.10 - Dysphagia, unspecified sennosides-docusate sodium 8.6-50 mg (Senna with Docusate Sodium) 1 tab-cap PO BEDTIME 30 days 30 tabs 3RF K59.09 - Other constipation Coding Level of Care Code Est Pt Level 4 (53823) Diagnoses Chronic constipation K59.09 Dyspepsia R10.13 Dysphagia R13.10 Postprandial epigastric pain R10.13 IBS (irritable bowel syndrome) K58.9 Cirrhosis of liver without ascites K74.60 Time Spent (min) 24
[2023-01-03 09:28] VITALS: BP 131/69; PULSE 86; BMI 30.9
== END 2023-01-03 09:59 | disposition home or self-care (01) ==
PROVIDERS: PCP Internal Medicine; Visit Provider Internal Medicine Gastroenterology
DX: K59.09 Other constipation (principal); R10.13 Epigastric pain; R13.10 Dysphagia, unspecified; K58.9 Irritable bowel syndrome, unspecified; K74.60 Unspecified cirrhosis of liver
CPT/HCPCS: 99214

== ENCOUNTER → 2023-01-03 09:17 | Outpatient (BNVA) | payer MEDICAID, SELFPAY | PROVIDERS: PCP Internal Medicine; Visit Provider Internal Medicine Gastroenterology | DX: K59.09 Other constipation (principal); R10.13 Epigastric pain; R13.10 Dysphagia, unspecified; K58.9 Irritable bowel syndrome, unspecified; K74.60 Unspecified cirrhosis of liver; Z23 Encounter for immunization | CPT/HCPCS: 90471; 90746; 99212 ==

== ENCOUNTER 2023-02-07 08:54 | Outpatient (REF) | payer MEDICAID, SELFPAY ==
--- NOTE | ~2023-02-07 | US_ITS ---
EXAMINATION: US ABDOMEN COMPLETE CLINICAL INFORMATION: Unspecified cirrhosis of liver. Screen for HCC and ascites. COMPARISON: Renal ultrasound 07/13/2022. X-ray abdomen KUB 06/27/2022. Ultrasound abdomen complete 05/31/2020. Limited abdominal ultrasound with elastography 10/22/2019. TECHNIQUE: Real-time imaging of the abdominal viscera. FINDINGS: PANCREAS: Normal. ABDOMINAL AORTA: The proximal, mid, and distal segments are normal in caliber. INFERIOR VENA CAVA: Visualized portions are normal. LIVER: There is mild hepatomegaly, with an estimated longitudinal span of the right hepatic lobe of 17.2 cm. The liver contour is normal. There is diffuse increased liver parenchymal echogenicity. There is hepatopedal portal venous flow. No focal hepatic lesion. There is no intrahepatic biliary duct dilatation seen. GALLBLADDER: Normal. The gallbladder is physiologically distended without evidence of stones, sludge, polyps, wall thickening or pericholecystic fluid. COMMON BILE DUCT: Normal in caliber measuring 0.4 cm in diameter. RIGHT KIDNEY: There is mild hydronephrosis. At the upper pole, a 4 mm nonobstructing calculus is seen. At the interpolar aspect, a 4 mm nonobstructing calculus is seen. At the lower pole, a 2 mm, 4 mm nonobstructing calculi are seen. No focal parenchymal lesions. The kidney measures 12.6 cm in maximum dimension. LEFT KIDNEY: No hydronephrosis or focal parenchymal lesions. At the upper pole, 4 mm and 5 mm nonobstructing calculi are seen. At the interpolar aspect, a 4 mm nonobstructing calculus is seen. The kidney measures 14.1 cm in maximum dimension. SPLEEN: The spleen measures 17.9 cm in maximum dimension. No focal finding. FREE FLUID: None. US/US abdomen complete IMPRESSION: 1. There is hepatosplenomegaly. 2. There is generalized increase in hepatic echotexture, consistent with fatty infiltration or hepatocellular disease. Please correlate clinically. No focal hepatic mass or intrahepatic biliary dilatation is seen. 3. There are nonobstructing bilateral renal calculi. 4. There is mild right hydronephrosis. No left hydronephrosis is seen.
== END 2023-02-07 08:55 | disposition home or self-care (01) ==
LOC: HO.HMGCX 08:54
PROVIDERS: PCP Internal Medicine; Visit Provider Internal Medicine Gastroenterology
DX: K74.60 Unspecified cirrhosis of liver (principal)
CPT/HCPCS: 76700

== ENCOUNTER 2023-05-10 16:01 | Outpatient (REF) | payer MEDICAID, SELFPAY ==
[2023-05-13 17:28] LABS: C. trachomatis RNA TMA NOT DETECTED (NOT DETECTED); N. gonorrhoeae RNA TMA NOT DETECTED (NOT DETECTED)
== END 2023-05-10 16:02 | disposition home or self-care (01) ==
LOC: HO.CHCLNP 16:01
PROVIDERS: Visit Provider Pediatrics
DX: N76.0 Acute vaginitis (principal)
CPT/HCPCS: 36415; 81513; 87491; 87591

== ENCOUNTER 2023-07-30 09:55 | Outpatient (REF) | payer MEDICAID, SELFPAY ==
--- NOTE | ~2023-07-30 | MM_ITS ---
EXAMINATION: MM SCREENING DIGITAL BREAST TOMOSYNTHESIS, BILATERAL CLINICAL INFORMATION: Screening. Asymptomatic. COMPARISON: Mammography: This study is compared with prior exams dating back to 2018. TECHNIQUE: Digital breast tomosynthesis is performed in both the craniocaudal and mediolateral oblique views along with computer-aided detection (CAD). Synthesized 2D images are generated from the tomosynthesis. FINDINGS: There are scattered areas of fibroglandular density (ACR BI-RADS breast composition Category b). There are no significant masses, abnormal calcifications, or other abnormalities. There is a biopsy tissue marker in the upper outer quadrant of the right breast. MM/MM tomosynthesis screening BI IMPRESSION: No mammographic evidence of malignancy. ASSESSMENT: BI-RADS BI-RADS 2 - Benign Findings RECOMMENDATION: Routine annual mammography screening. 1 year F/U This examination should not preclude the clinical evaluation of a suspicious palpable abnormality. This patient's information was entered into a reminder system with a target due date for their next mammogram.
== END 2023-07-30 09:56 | disposition home or self-care (01) ==
LOC: HO.MAMMO 09:55
PROVIDERS: PCP Registered Nurse; Visit Provider Registered Nurse
DX: Z12.31 Encounter for screening mammogram for malignant neoplasm of breast (principal)
CPT/HCPCS: 77063; 77067

== ENCOUNTER → 2023-07-30 10:00 | Outpatient (BNV) | payer MEDICAID, SELFPAY | PROVIDERS: PCP Registered Nurse; Visit Provider Radiology Diagnostic Radiology | DX: Z12.31 Encounter for screening mammogram for malignant neoplasm of breast (principal) | CPT/HCPCS: 77063; 77067 ==

== ENCOUNTER 2023-08-02 13:27 | Outpatient (AMB) | payer MEDICAID, SELFPAY ==
--- NOTE | 2023-08-02 13:28 | A.OFFVIS_ITS ---
Intake Intake Visit Reasons: to discuss urodynamics Intake Note: Patient presents today via telephone visit to Discuss Urodynamic: Medications: Vagifem Blood thinners:none Traffic Maintenance Supervisor Required: Yes Traffic Maintenance Supervisor Language: Irish Information Interpreted: non-clinical & clinical Accompanied by: Self / Same As Patient Allergies dulaglutide [From Trulicity] Allergy (Unknown, Verified 08/02/23 13:29) Rash hydrocodone [From VICODIN] Allergy (Unknown, Verified 08/02/23 13:29) RASH metformin Allergy (Unknown, Verified 08/02/23 13:29) Rash penicillin G Allergy (Unknown, Verified 08/02/23 13:29) Rash simvastatin [SIMVASTATIN] Allergy (Unknown, Verified 08/02/23 13:29) RASH HPI HPI Comments History of Present Illness Details 08/02/2023--telehealth visit to discuss questions that patient has regarding urodynamics procedure. The patient is Irish-speaking and certified neighborhood aide present. The patient has urinary incontinence symptoms associated with activity. I have discussed the urodynamics allows evaluation of bladder function and placement of catheters is needed to evaluate pressures in the bladder. Comorbidity diabetes. The patient is on vaginal estrogen. In the past pelvic floor physical therapy was discussed and she was referred to PT. Plan- schedule urodynamics Review of chart: 05/11/2022--Barb is here for evaluation for urinary incontinence. She states the urine leakage is associated with activity coughing bending. She denies burning with urination. She denies gross hematuria. She denies nocturia. She voids about every 3 hours during the day. She has been seen in the past by urology for kidney stones. She denies abdominal pain or flank pain. Lower urinary tract symptoms: Hesitancy - no Slow stream- no Nocturia no Urgency - no Urge incontinence- no Pad usage - yes Gross hematuria- no Dysuria- no PFSH Medical History (Updated 05/11/22 @ 14:42 by Tex Le MD) Kidney stones Kidney stones Abnormal mammogram of right breast Surgical History History of colonoscopy History of tubal ligation Hx of endoscopy Hx of removal of ovary Family History Maternal Grandmother History of cancer of uterus History of breast cancer Father No problems noted. Mother Family history of high blood pressure Hx of diabetes insipidus Social History Alcohol intake: never Current occupational status: disabled Current occupation: left hand Review of Systems Const All systems reviewed & are unremarkable except as noted in HPI and below Reports no additional complaints Eyes Reports no additional complaints ENT Reports no additional complaints Card Reports no additional complaints Resp Reports no additional complaints GI Reports no additional complaints Reports as per HPI Musc Reports no additional complaints Skin/Breast Reports system reviewed and no additional complaints, except as documented Neuro Reports no additional complaints Psych Reports no additional complaints Endo Reports no additional complaints Hitesh/Lymph Reports no additional complaints Aller/Immun Reports no additional complaints Assessment & Plan Assessment & Plan (1) DIANE (stress urinary incontinence, female): Code(s): N39.3 - Stress incontinence (female) (male) (2) Pelvic floor weakness: Code(s): N81.89 - Other female genital prolapse (3) Bilateral kidney stones: Code(s): N20.0 - Calculus of kidney (4) Perimenopausal atrophic vaginitis: Code(s): N95.2 - Postmenopausal atrophic vaginitis Plan Schedule urodynamics Telehealth Telehealth Location of provider rendering services: practice address Location of patient: address on file Patient Identification confirmed using: Name, : Yes Telehealth method: voice only Patient verbally consented to treatment: Yes Patient verbally consented to billing insurance company: Yes Patient informed of any privacy concerns related to visit: Yes Minutes spent on Phone/Video with Pt.: 15 Coding Level of Care Code Tele Est Pt Level 3 (53593) Diagnoses DIANE (stress urinary incontinence, female) N39.3 Pelvic floor weakness N81.89 Bilateral kidney stones N20.0 Perimenopausal atrophic vaginitis N95.2
== END 2023-08-02 13:39 | disposition home or self-care (01) ==
LOC: HO.HUSH 13:27
PROVIDERS: PCP Registered Nurse; Visit Provider Urology
DX: N39.3 Stress incontinence (female) (male) (principal); N81.89 Other female genital prolapse; N20.0 Calculus of kidney; N95.2 Postmenopausal atrophic vaginitis
CPT/HCPCS: 99213

== ENCOUNTER → 2023-08-02 13:27 | Outpatient (BNVA) | payer MEDICAID, SELFPAY | PROVIDERS: PCP Registered Nurse; Visit Provider Urology ==

== ENCOUNTER 2023-08-26 13:18 | Outpatient (REF) | payer MEDICAID, SELFPAY ==
[2023-08-28 06:28] LABS: C. trachomatis RNA TMA NOT DETECTED (NOT DETECTED); Candida glabrata RNA NOT DETECTED (NOT DETECTED); Candida species RNA DETECTED (NOT DETECTED); N. gonorrhoeae RNA TMA NOT DETECTED (NOT DETECTED); Trichomonas vaginalis RNA NOT DETECTED (NOT DETECTED)
== END 2023-08-26 13:19 | disposition home or self-care (01) ==
LOC: HO.CHCLNP 13:18
PROVIDERS: Visit Provider Registered Nurse
DX: N89.8 Other specified noninflammatory disorders of vagina (principal)
CPT/HCPCS: 36415; 81513; 87481; 87491; 87591; 87661

== ENCOUNTER 2023-09-23 10:44 | Outpatient (REF) | payer MEDICAID, SELFPAY ==
[2023-09-23 11:42] LABS: Prothrombin Time 12.6 SEC (11.1-13.3)
[2023-09-23 11:45] LABS: Partial Thromboplastin Time 30.7 SEC (26.0-36.8)
[2023-09-23 14:03] LABS: Alanine Aminotransferase 50 U/L (0-31); Albumin Level 4.1 g/dL (3.5-5.0); Alkaline Phosphatase 88 U/L (39-117); Aspartate Amino Transferase 34 U/L (5-31); Bilirubin Direct 0.2 mg/dL (0.0-0.5); Bilirubin Total 0.6 mg/dL (0.0-1.0); Cholesterol 195 mg/dL (<200); HDL Cholesterol 46 mg/dL (>40); LDL Cholesterol Calculated 118 mg/dL (<100); Total Protein 7.6 g/dL (6.5-8.0); Triglycerides 156 mg/dL (<150)
== END 2023-09-23 10:45 | disposition home or self-care (01) ==
LOC: HO.HHCL 10:44
PROVIDERS: Visit Provider Registered Nurse
DX: K74.69 Other cirrhosis of liver (principal); E11.65 Type 2 diabetes mellitus with hyperglycemia
CPT/HCPCS: 36415; 80061; 80076; 85610; 85730

== ENCOUNTER 2023-09-27 13:10 | Outpatient (REF) | payer MEDICAID, SELFPAY ==
[2023-09-27 15:06] LABS: Appearance Urine Turbid; Glucose Urine UA >=1000 mg/dL (Negative); Leukocyte Esterase Urine Negative (Negative); Nitrite Urine Negative (Negative); PH 5.5 (5.0-9.0); Specific Gravity - Urine >= 1.030 (1.005-1.025); UMIC TRIGGER UACC YES; Urine Blood Negative (Negative); Urine Ketones Negative (Negative); Urine Protein Negative (Neg-Trace)
[2023-09-27 15:09] LABS: Color Urine Yellow
[2023-09-27 15:18] LABS: Bacteria Urine 2+ (None Seen); Calcium Oxalate Crystals Urine Present; Hyaline Casts Urine 0-2 /LPF (0-2); RBC Urine 0-2 /HPF (0-2); WBC Urine 0-5 /HPF (0-5)
== END 2023-09-27 13:11 | disposition home or self-care (01) ==
LOC: HO.CHCLNP 13:10
PROVIDERS: Visit Provider Registered Nurse
DX: R39.9 Unspecified symptoms and signs involving the genitourinary system (principal)
CPT/HCPCS: 81001

== ENCOUNTER 2023-12-16 15:33 | Outpatient (REF) | payer MEDICAID, SELFPAY ==
--- NOTE | ~2023-12-16 | XR_ITS ---
EXAMINATION: XR HAND, RIGHT CLINICAL INFORMATION: Hand injury. COMPARISON: None available. TECHNIQUE: Four views of the right hand. FINDINGS: The bones and soft tissues are normal. No fracture. Alignment is anatomic. Joint spaces are maintained. Small periarticular calcification adjacent to the DIP joint of the index finger is chronic. No erosions or soft tissue calcifications. XR/XR hand RT min 3V IMPRESSION: Normal right hand.
== END 2023-12-16 15:34 | disposition home or self-care (01) ==
LOC: HO.HHCX 15:33
PROVIDERS: Visit Provider Nurse Practitioner Family
DX: S69.91XA Unspecified injury of right wrist, hand and finger(s), initial encounter (principal)
CPT/HCPCS: 73130

== ENCOUNTER 2024-03-05 17:26 | Outpatient (REF) | payer MEDICAID, SELFPAY ==
[2024-03-06 03:07] LABS: CT PCR NOT DETECTED (Not Detect.); NG PCR NOT DETECTED (Not Detect.)
[2024-03-06 08:33] LABS: Bacterial Vaginosis PCR NEGATIVE (Negative); Candida Group PCR DETECTED (Not Detect); Candida glab krusei PCR NOT DETECTED (Not Detect); Trichomonas vaginalis PCR NOT DETECTED (Not Detect)
== END 2024-03-05 17:27 | disposition home or self-care (01) ==
LOC: HO.HHCLNP 17:26
PROVIDERS: Visit Provider Family Medicine
DX: R35.0 Frequency of micturition (principal)
CPT/HCPCS: 0352U; 87086; 87088; 87186; 87491; 87591

== ENCOUNTER 2024-04-17 17:29 | Outpatient (REF) | payer MEDICAID, SELFPAY ==
[2024-04-17 17:38] LABS: Appearance Urine Clear; Color Urine Yellow; Glucose Urine UA >=1000 mg/dL (Negative); Leukocyte Esterase Urine Negative (Negative); Nitrite Urine Positive (Negative); Specific Gravity - Urine >= 1.030 (1.005-1.025); UMIC TRIGGER UACC YES; Urine Blood Negative (Negative); Urine Ketones Negative (Negative); Urine Protein Negative (Neg-Trace)
[2024-04-17 17:41] LABS: Bacteria Urine 4+ (None Seen); Hyaline Casts Urine 0-2 /LPF (0-2); RBC Urine 0-2 /HPF (0-2); Squamous Epithelial Cell Urine 0-2 /HPF (0-2); UACC Culture Trigger YES
[2024-04-18 10:15] LABS: Bacterial Vaginosis PCR NEGATIVE (Negative); Candida Group PCR DETECTED (Not Detect); Candida glab krusei PCR NOT DETECTED (Not Detect); Trichomonas vaginalis PCR NOT DETECTED (Not Detect)
[2024-04-18 10:47] LABS: CT PCR NOT DETECTED (Not Detect.); NG PCR NOT DETECTED (Not Detect.)
== END 2024-04-17 17:30 | disposition home or self-care (01) ==
LOC: HO.HHCLNP 17:29
PROVIDERS: Visit Provider Registered Nurse
DX: N89.8 Other specified noninflammatory disorders of vagina (principal); R39.9 Unspecified symptoms and signs involving the genitourinary system
CPT/HCPCS: 0352U; 81001; 87086; 87088; 87186; 87491; 87591

== ENCOUNTER 2024-06-08 14:22 | Outpatient (REF) | payer MEDICAID, SELFPAY ==
[2024-06-09 11:46] LABS: Bacterial Vaginosis PCR NEGATIVE (Negative); Candida Group PCR DETECTED (Not Detect); Candida glab krusei PCR NOT DETECTED (Not Detect); Trichomonas vaginalis PCR NOT DETECTED (Not Detect)
[2024-06-09 14:01] LABS: CT PCR NOT DETECTED (Not Detect.); NG PCR NOT DETECTED (Not Detect.)
== END 2024-06-08 14:23 | disposition home or self-care (01) ==
LOC: HO.CHCLNP 14:22
PROVIDERS: Visit Provider Registered Nurse
DX: N94.9 Unspecified condition associated with female genital organs and menstrual cycle (principal)
CPT/HCPCS: 0352U; 87491; 87591

== ENCOUNTER 2024-06-30 16:18 | Outpatient (REF) | payer MEDICAID, SELFPAY ==
[2024-07-01 11:17] LABS: HPV 16,18/45 See PAP report
== END 2024-06-30 16:19 | disposition home or self-care (01) ==
LOC: HO.HHCLNP 16:18
PROVIDERS: Visit Provider Advanced Practice Midwife
DX: Z12.4 Encounter for screening for malignant neoplasm of cervix (principal); Z11.51 Encounter for screening for human papillomavirus (HPV)
CPT/HCPCS: 87626; 88175

== ENCOUNTER 2024-07-03 11:54 | Outpatient (REF) | payer MEDICAID, SELFPAY ==
[2024-07-03 15:00] LABS: Adenovirus PCR Not Detected (Not Detect.); Bordetella parapertussis PCR Not Detected (Not Detect.); Bordetella pertussis PCR Not Detected (Not Detect.); Chlamydia pneumoniae PCR Not Detected (Not Detect.); Coronavirus 229E PCR Not Detected (Not Detect.); Coronavirus HKU1 PCR Not Detected (Not Detect.); Coronavirus NL63 PCR Not Detected (Not Detect.); Coronavirus OC43 PCR Not Detected (Not Detect.); Human metapneumovirus PCR Not Detected (Not Detect.); Influenza A PCR Not Detected (Not Detect.); Influenza B PCR Not Detected (Not Detect.); Mycoplasma pneumoniae PCR Not Detected (Not Detect.); Parainfluenza 1 PCR Not Detected (Not Detect.); Parainfluenza 2 PCR Not Detected (Not Detect.); Parainfluenza 3 PCR Not Detected (Not Detect.); Parainfluenza 4 PCR Not Detected (Not Detect.); RSV PCR Not Detected (Not Detect.); Rhino/Enterovirus PCR Not Detected (Not Detect.)
[2024-07-03 15:07] LABS: SARS-CoV-2 PCR Detected (Not Detect.)
[2024-07-03 15:39] LABS: Bacterial Vaginosis PCR NEGATIVE (Negative); Candida Group PCR DETECTED (Not Detect); Candida glab krusei PCR NOT DETECTED (Not Detect); Trichomonas vaginalis PCR NOT DETECTED (Not Detect)
== END 2024-07-03 11:55 | disposition home or self-care (01) ==
LOC: HO.CHCLNP 11:54
PROVIDERS: Visit Provider Registered Nurse
DX: J34.89 Other specified disorders of nose and nasal sinuses (principal); N94.9 Unspecified condition associated with female genital organs and menstrual cycle; R39.9 Unspecified symptoms and signs involving the genitourinary system; Z11.52 Encounter for screening for COVID-19
CPT/HCPCS: 81515; 87086; 87633

== ENCOUNTER 2024-09-25 14:02 | Outpatient (REF) | payer MEDICAID, SELFPAY ==
--- OUTSIDE RECORDS SUMMARY | 2024-09-25 15:48 | XMS_ITS | Encounter Summary ---
Author Organization [employer] Address [address] [place] [address] Care Team Providers Care Campus Recruiter Name Role Phone Rosemary Santiago REPRODUCTIVE HEALTHCARE ASSISTANT Primary Care Provider [phone] Encounter Details Date Type Department Care Team ([facility] st Contact Info) Description 09/25/2024 11:00 AM EDT Office Visit [facility] [address], [place] [phone] Rosemary Santiago FNP [address] [place] [address] Type 2 diabetes mellitus with hyperglycemia, without long-term current use of insulin ([facility]) (Primary Dx); Healthcare maintenance; Pain in finger of both hands; Anxiety Social History Tobacco Use Types Packs/Day Years Used Date Smoking Tobacco: Never Passive Smoke Exposure: Never Smokeless Tobacco: Never Alcohol Use Standard Drinks/Week Comments Yes 0 (1 standard drink = 0.6 oz pur e alcohol) ghazala Depression Answer Date Recorded Patient Health Questionnaire-9 Score 4 09/27/2023 Patient Health Questionnaire-9 Score 4 09/27/2023 Last PHQ-9: Questionnaire Data Not on file 0 09/27/2023 Housing Stability Answer Date Recorded What is your housing situation today? I have housing today, but I am worried about losing housing in the future 01/23/[address] you li ve. Do you have problems with any of the following? None of the above 01/23/2024 Food Insecurity Answer Date Recorded Within the past 12 months, y ou worried that your food would run out before you got money to buy more: Sometimes True 2023 Within the past 12 months,th e food you bought just didn't last and you didn't have enough money to get more: Sometimes True 01/23/2024 Transportation Answer Date Recorded In the past 12 months, has l ack of transportation kept you from medical appts, meetings, work or from getting things needed for daily living? No 04/08/2023 Utilities Answer Date Recorded In the past 12 months, has t he electric, gas, oil or water company threatened to shut off services in your home? No 12/27/2023 Depression Answer Date Recorded Patient Health Questionnaire-2 Score 1 09/27/2023 Internet Access Answer Date Recorded Internet Access Q1 Yes 02/24/2024 Internet Access Q2 Not on file 02/24/2024 Comments No Sex and Gender Information Value Date Recorded Sex Assigned at Female 04/23/2022 10:23 AM EDT Legal Sex Female 10:23 AM EDT Gender Identity Female 08/30/2022 8:11 AM EST Sexual Orientation Choose not to disclose 2021 10:23 AM EDT documented as of this encounter Last Filed Vital Signs Vital Sign Reading Time Taken Comments Blood Pressure 128/70 09/25/2024 11:27 AM EDT Pulse 90 09/25/2024 11:27 AM EDT Temperature 36 ??C (96.8 ??F) 09/25/2024 11:27 AM EDT Respiratory Rate 18 09/25/2024 11:27 AM EDT Oxygen Saturation 98% 09/25/2024 11:27 AM EDT Inhaled Oxygen Concentration - - Weight 77.7 kg (171 lb 4 oz) 09/25/2024 11:27 AM EDT Height 162.6 cm (5' 4 ) 09/25/2024 11:27 AM EDT Body Mass Index 29.39 09/25/2024 11:27 AM EDT documented in this encounter Plan of Treatment Upcoming Encounters Date Type Department Care Team (Late st Contact Info) Description 09/30/2024 9:00 AM EDT Office Visit [facility] [address] [place] [address] Giorgio Álvarez 10/21/2024 10:00 AM EDT Office Visit [facility] OPTOMETRY [address] [place] [address] Ashley Quintana, OD [address] [place] [address] Scheduled Orders Name Type Priority Associated Diagnoses Orde r Schedule Albumin, Random Urine W/Creatinine Lab Routine Healthcare maintenance Expected: 09/25/2024 (Approximate), Expires: 09/25/2025 Lipid Panel, Standard Lab Routine Healthcare maintenance Expected: 09/25/2024 (Approximate), Expires: 09/25/2025 TSH with Reflex to Free T4 Lab Routine Healthcare maintenance Expected: 09/25/2024 (Approximate), Expires: 09/25/2025 Comprehensive Metabolic Panel Lab Routine Healthcare maintenance Expected: 09/25/2024 (Approximate), Expires: 09/25/2025 CBC auto differential Lab Routine Healthcare maintenance Expected: 09/25/2024, Expires: 09/25/2025 Rheumatoid Factor Lab Routine Healthcare maintenance Expected: 09/25/2024, Expires: 09/25/2025 C-reactive Protein Lab Routine Healthcare maintenance Expected: 09/25/2024 (Approximate), Expires: 09/25/2025 Sed Rate by Modified [place] Lab Routine Healthcare maintenance Expected: 09/25/2024 (Approximate), Expires: 09/25/2025 GILDARDO Screen,IFA, with Reflex to Titer and Pattern Lab Routine Healthcare maintenance Expected: 09/25/2024 (Approximate), Expires: 09/25/2025 Chlamydia/N. Gonorrhoeae RNA, TMA, Urogenitial Microbiology Routine Healthcare maintenance Expected: 09/25/2024, Expires: 09/25/2025 Hepatitis C Viral RNA, Quantitative, Real-Time PCR Lab Routine Healthcare maintenance Expected: 09/25/2024 (Approximate), Expires: 09/25/2025 RPR (Monitor) with Reflex to??Titer Lab Routine Healthcare maintenance Expected: 09/25/2024 (Approximate), Expires: 09/25/2025 HIV-1/2 Antigen and Antibodies, Fourth Generation, with Reflexes Lab Routine Healthcare maintenance Expected: 09/25/2024 (Approximate), Expires: 09/25/2025 XR Fingers 2+ Views Left Imaging Routine Pain in finger of both hands Expected: 09/25/2024, Expires: 09/25/2025 XR Fingers 2+ Views Right Imaging Routine Pain in finger of both hands Expected: 09/25/2024, Expires: 09/25/2025 documented as of this encounter Procedures Procedure Name Priority Date/Time Associated Diagnosis Comments POCT GLYCATED HEMOGLOBIN, TOTAL Routine 09/25/2024 1:17 PM EDT Type 2 diabetes mellitus with hyperglycemia, without long-term current use of insulin ([facility]) POCT GLUCOSE Routine 09/25/2024 1:17 PM EDT Type 2 diabetes mellitus with hyperglycemia, without long-term current use of insulin ([facility]) POCT URINALYSIS DIPSTICK Routine 09/25/2024 1:15 PM EDT Type 2 diabetes mellitus with hyperglycemia, without long-term current use of insulin ([facility]) documented in this encounter Results * (ABNORMAL) POCT HGB A1C (09/25/2024 1:17 PM EDT) Hemoglobin A1C 10.6(A) 4.0 - 6.0 % QC Media Lot # [id number] Lot# Expiration Date , Blood 09/25/2024 1:17 PM EDT [facility] POINT OF CARE TEST ENTER/EDIT ORDERABLES Final Result * (ABNORMAL) POCT Glucose (09/25/2024 1:17 PM EDT) Glucose Blood, POC 268(A) 60 - 200 mg/dL QC Media Lot # [id number] Lot# Expiration Date 732,025 Blood Capillary blood specimen / Unknown 09/25/2024 1:17 PM EDT [facility] POINT [facility] ENTER/EDIT ORDERABLES Final Result * POCT Urinalysis (09/25/2024 1:15 PM EDT) Color, UA Yellow Clarity, UA Clear Glucose, UA 3+ 500+++ Bilirubin, UA Negative Ketones, UA Negative Spec Grav, UA 1.020 Blood, UA Negative Negative, None Detected pH, UA 7.0 Protein, UA Negative Urobilinogen, UA 4.0 Leukocytes, UA Negative Negative, Rare, Trace Nitrite, UA Negative Negative, None Detected Appearance, UA clear QC Media Lot # [id number] Lot# Expiration Date Urine 09/25/2024 1:15 PM EDT Rosemary RIBEIRO POINT OF CARE TEST ENTER/EDIT ORDERABLES Final Result documented in this encounter Visit Diagnoses Diagnosis Type 2 diabetes mellitus with hyperglycemia, without long-term current use of insulin ([facility])- Primary Healthcare maintenance Pain in finger of both hands Anxiety Anxiety state, unspecified documented in this encounter Additional Health Concerns Assessment Noted Time PHQ-9 Depression Total Score: 4 09/27/19 24 10:48 AM EDT documented as of this encounter Care Teams Campus Recruiter Relationship Specialty Start Date End Date Rosemary Santiago FNP [address] [place] [id number] PCP - General Family Medicine 02/19/23 documented as of this encounter
--- OUTSIDE RECORDS SUMMARY | 2024-09-25 15:48 | XMS_ITS | Clinical Summary ---
Author Organization [employer] Address [address] [facility] [address] [place] [address] Care Team Providers Care Hand I Cutter Name Role Phone Rosemary Santiago CASING INSPECTOR Primary Care Provider [phone] Allergies Active Allergy Reactions Criticality Noted Date Comments Acetaminophen 04/10/2018 Amoxicillin-Pot Clavulanate 07/04/2012 Other Reaction(s): Rash/Dermatitis Canagliflozin Rash Low 01/12/2021 Other reaction(s): Rash Ciprofloxacin Angioedema,Itching, Rash Low 05/05/2020 Hydrocodone 04/10/2018 Hydrocodone-Acetaminophen Rash Low 04/11/2016 Iodine 05/01/2024 Insulin Glargine Dermatitis 09/20/2022 Linagliptin 07/21/2021 Nitrofurantoin Itching 06/19/2024 Swelling lip and itchiness in hand Oxycodone-Acetaminophen Rash,Itching Low 04/11/2016 Penicillin G 04/10/2018 Penicillins Rash Low 08/08/2023 Simvastatin Rash Low 04/11/2016 Other Reaction(s): Muscle pain Sitagliptin 07/12/2015 dizzy Sulfamethoxazole 10/30/2021 Trimethoprim 10/30/2021 Medications ergocalciferol (Vitamin D2) 1.25 MG (44203 UT) capsule TAKE 1 CAPSULE BY MOUTH ONCE A WEEK 10/07/19 22 Active Yuvafem 10 MCG tablet vaginal tablet INSERT 1 TABLET VAGINALLY 2 TIMES A WEEK -USE VAGINALLY 2X PER WEEK MON/THUR 05/11/20 22 Active UltiCare Short Pen [place] 31G X 8 MM misc USE DAILY DIRECTED 03/29/20 22 Active glucose (Glutose) 40 % gel oral gelIndications :Type 2 diabetes mellitus with hyperglycemia, without long-term current use of insulin ([facility]) Take 15 g by mouth if needed for low blood sugar. 60 g 3 12/19/19 23 Active clobetasol (Temovate) 0.05 % cream Apply topically 2 times daily. 60 g 1 02/15/20 23 Active metFORMIN (Glucophage) 1000 MG tabletIndicati ons:Type 2 diabetes mellitus with hyperglycemia, without long-term current use of insulin ([facility]) Take 1 tablet (1,000 mg) by mouth with breakfast and with evening meal. 180 tablet 3 06/07/20 23 Active omeprazole (PriLOSEC) [address] capsule Take 20 mg by mouth 2 times daily. 05/10/20 23 Active Diclofenac Sodium 1 % gel Apply 2 g topically if needed in the morning, at noon, in the evening, and at bedtime (pain). APPLY 2 GRAMS TOPICALLY TO AFFECTED AREA(S) THREE TIMES DAILY 150 g 3 03/05/20 24 Active baclofen (Lioresal) 10 MG tablet Take 1 tablet (10 mg) by mouth if needed in the morning, at noon, and at bedtime for muscle spasms. 60 tablet 1 03/05/20 24 Active Blood Glucose Monitoring Suppl (FreeStyle [place] Lite) w/Device kit USE DIRECTED 1 kit 1 03/24/20 24 Active Lidoderm 5 % patchIndicatio ns:Right shoulder pain, unspecified chronicity Apply 1 patch topically Once per day. Remove & discard patch within 12 hours or as directed by . 30 patch 3 04/22/20 24 Active glucose blood (FREESTYLE LITE) test stripIndicatio ns:Type 2 diabetes mellitus with hyperglycemia, without long-term current use of insulin ([facility]) USE 1 STRIP TO CHECK GLUCOSE THREE TIMES DAILY 100 each 5 04/22/20 24 Active TRUEplus Lancets 33G miscIndication s:Type 2 diabetes mellitus with hyperglycemia, without long-term current use of insulin ([facility]) TEST BLOOD SUGAR THREE TIMES DAILY 100 each 5 04/22/20 24 Active fluticasone (Flonase) 50 MCG/ACT nasal spray Administer 1-2 sprays into each nostril Once per day. Shake gently. Before first use, prime pump. After use, clean tip and replace cap. 16 g 2 07/03/19 25 026 Active olmesartan (Benicar) 5 MG tablet Take 1 tablet (5 mg) by mouth Once per day. 90 tablet 1 09/26/19 25 026 Active busPIRone (Buspar) 5 MG tabletIndicati ons:Anxiety Take 1 tablet (5 mg) by mouth 2 times daily. 60 tablet 2 09/26/19 25 026 Active cholecalcifero l (Vitamin D-3) 25 MCG (1000 UT) tablet Take 1 tablet (25 mcg) by mouth Once per day. 90 tablet 1 09/26/19 25 Active lisinopril 5 MG tabletIndicati ons:HTN (hypertension) , benign TAKE 1 TABLET BY MOUTH EVERY MORNING 90 tablet 1 04/09/20 24 025 Discontinued(Th erapy completed) busPIRone (Buspar) 5 MG tabletIndicati ons:Anxiety Take 1 tablet (5 mg) by mouth 2 times daily. 60 tablet 2 04/17/20 24 025 Discontinued(Re order (will not trigger notification to Pharmacy)) Active Problems Patient Care Coordination No te Formatting of this note migh t be different from the original. C3/CM Ashley Glover RN / Yobany Hood RN (initiated care Jan 2024) Problem Noted Date Diagnosed Date Urinary tract infection without hematuria 2023 Assessment & Plan (06/19/2024 1:30 PM EST): DC Macrodantin and begin Cephalexin. Relevant Medications Cephalexin (Keflex) 500 mg capsule Plantar wart of left foot 04/19/2024 Assessment & Plan (06/21/2024 10:05 PM EST): - previously debrided and tx by Dr. Jalloh (last available consult from May 2023) - additional tx required, updated referral placed to podiatry on 04/19/24: Dr. Connolly Assessment & Plan (04/19/2024 4:43 PM EDT): - previously debrided and tx by Dr. Jalloh (last available consult from May 2023) - additional tx required, updated referral placed to podiatry on 04/19/24 Urinary, incontinence, stress female 12/29/2023 Overview (12/29/2023): Following with [facility]. During consult in September 2023, plan to start vaginal estrogen and try kegals Healthcare maintenance 06/08/2023 Overview (06/21/2024): Mammogram: 07/30/23 BIRADS 2 Colonoscopy: Cologuard ordered 06/08/24 Pap: scheduled 06/30/[address] [facility] CNM Chronic bilateral low back pain without sciatica 12/18/2022 Assessment & Plan (02/19/2023 11:12 AM EDT): ?? No red flag symptoms ?? Referral to physical therapy location: [facility] Assessment & Plan (12/18/2022 1:18 PM EDT): S/p fall a few weeks ago referral to [place] ([facility]?) Use tylenol PRN Peroneal neuropathy 06/14/2022 Overview (07/30/2022): [place] [facility] [place] Assessment & Plan (07/30/2022 12:41 PM EST): Sxs apparently worsened by Lantus (?), patient self dc'd it. 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 Reviewed med safety and SE Previous med trials: - Hydroxyzine 10mg QID PRN - BZO (rec against [place] [facility] use) Assessment & Plan (04/19/2024 4:41 PM EDT): Start buspirone 5mg BID. Reviewed med safety and SE Previous med trials: - Hydroxyzine 10mg QID PRN - BZO (rec against [place] [facility] use) Arthritis of right ankle 06/14/2022 Benign essential HTN 06/14/2022 Overview (02/19/2023): BP goal: < 130/80 mmHg Continue with the following medications: ?? Lisinopril 5mg daily -Aerobic exercise to reduce BP. Initial goal of 30 min walk 3-5x/week. Increase as tolerated with goal 150 minutes weekly -low-sodium diet (goal: <2g/day) and heart healthy diet such as DASH to reduce BP and ASCVD risk. -Home BP monitoring 2-3 x/week (or more frequently as directed) -Seek immediate medical attention for chest pain, palpitations, SOB, syncope, or sudden changes in mental status. -Do not change or discontinue current prescriptions without first consulting health care provider Assessment & Plan (02/19/2023 10:49 AM EDT): -Reports home readings well controlled around 120/80 mmHg -Refill lisinopril, reviewed med safety and SE -Return precautions if not well controlled at home Assessment & Plan (12/18/2022 1:21 PM EDT): BP is better controlled Continue lisinoril 5 mg and check BP at home and FU with me in 6 weeks. Counseled re low salt diet/increase moderate physical activity. Check home BP BIW and prn CP/LOU/HURT Non smoking patient. Assessment & Plan (07/30/2022 12:49 PM EST): Borderline Continue lisinopril 5mg and fu at next RV Bone spur of foot 06/14/2022 Assessment & Plan (06/08/2024 12:17 PM EST): - Referred to [facility] Assessment & Plan (12/18/2022 1:18 PM EDT): referred again to podiatry, she was going to podiatry in [place] but missed appointments Reminded her to pick and shovel man x-rays from 2018 Assessment & Plan (07/30/2022 12:51 PM EST): FU with podiatry. Patient will call for appt. Cirrhosis of liver 06/14/2022 Overview (08/27/2023): Compensated cirrhosis likely due to non-alcoholic fatty liver disease given hx of T2DM Meld score 7 [place] [facility] [place]. Espinoza) - last consult December 2022 Scheduled for upper endoscopy to screen for varices Routine Education: advised to avoid alcohol, maintain healthy weight (goal to lose 10% body weight) HCC Surveillance: through GI, reports last completed Jan 2023. Assessment & Plan (09/29/2023 11:39 AM EDT): Pt currently in process of transitioning to [facility], lab work to be completed next appt, as well as discuss ordering abd US pending initial consult with new GI provider Assessment & Plan (08/27/2023 6:04 PM EST): Referral to [facility] placed 08/27/23 as more convenient location Synovial cyst of hand 06/14/2022 Nonalcoholic steatohepatitis 06/14/2022 Assessment & Plan (12/18/2022 1:22 PM EDT): Pt had fatty liver followed by GI. Counseled for her to reschedule appointment with GI Obstructive sleep apnea syndrome 06/14/2022 Overview (02/19/2023): ?? Mild. [place] [facility] ?? CPAP ordered by Dr. Burns Assessment & Plan (12/18/2022 1:17 PM EDT): sleep study done on 2020, she has not receieved CPAP yet and there hasn't been a close follow up with DME supplier I will discuss with director case management who will find out with supplier about status of machine and will help her reach out the vendor she is aware that she needs to fu closely if CPAP is not delivered. Assessment & Plan (07/30/2022 12:48 PM EST): Not on CPAP yet. Referral for CPAP was one last year. Patient to call CM to help her reach out to vendor. Pharyngeal dysphagia 06/14/2022 Pure hypercholesterolemia 06/14/2022 Supraventricular premature beats 06/14/2022 Type 2 diabetes mellitus wit h hyperglycemia, without long-term current use of insulin 06/14/2022 Overview (07/03/2024): A1c: above goal Lab Results Component Value Date HGBA1C 11.8 (A) 04/17/2024 HGBA1C 12.1 (A) 12/27/2023 HGBA1C 11.4 (A) 08/26/2023 HGBA1C 10.0 08/08/2022 HGBA1C 9.0 (H) 12/21/2020 HGBA1C 8.2 (H) 06/27/2020 Microalbumin: WNL November 2022 Eye exam: 04/23/[address] [facility] Care: severe non-proliferative diabetic retinopathy with mild macular edema bilaterally. Foot exam: discuss at follow up Dental: discuss at follow up PNA: due (declined) Tdap/Td: due (declined) ACEi/ARB: yes - lisinopril Statin: recommend mod intensity statin pending director of finance results ASA: no Lab Results Component Value Date CHOL 195 09/23/2023 TRIG 156 (H) 09/23/2023 TRIG 157 (H) 06/06/2022 HDL 46 09/23/2023 LDLCHOLCAL 118 (H) 09/23/2023 Lifestyle: Encouraged regular movement and aerobic exercise for improved glycemic control Encouraged daily foot checks Encouraged lean protein snacks and to avoid foods high in sugar and simple carbohydrates Medications: Metformin 1000mg BID (Brand: Mylan [facility] [id number]) Start tirzepatide 2.5mg subcutaneous weekly. Reviewed med safety and SE Reports previous SE/intolerance/rxn to the following medications: metformin (certain brand only), glyburide, glipizide, lantus, trulicity, tradjenta, Invokana, Jardiance, Amaryl, semaglutide (injectable and oral) (upcoming appt for allergy testing) Treatment Goals: A1c goal: <7% FBG goal: <130 2 hour post prandial goal: <180 Assessment & Plan (04/19/2024 4:51 PM EDT): - Referred to [facility] CDE and professor of chemical engineering September 2023, missed multiple appts - Discussed adverse sequela of poorly controlled BG and importance of improving A1c together - Plan: director of finance consult, nutrition modifications, increase physical activity Assessment & Plan (12/29/2023 4:22 PM EDT): - Referral to [facility] CDE and professor of chemical engineering placed in September 2023, pt missed appt and would like to reschedule. Will send message to team. - Life stressors including housing situation likely contributing to difficulty with BG control. Interested in establishing with CM, referral placed 12/29/23. - Discussed adverse sequela of poorly controlled BG and importance of improving A1c together Assessment & Plan (09/29/2023 11:32 AM EDT): Referral to [facility] CDE and professor of chemical engineering Pt requesting to trial injectable Ozempic. Previous trial of oral formulation and did not tolerate GI SE. Denies any swelling or anaphylactic rxn. Sister is currently using Ozempic w/o SE. Will initiate prescription/referral Assessment & Plan (02/19/2023 10:31 AM EDT): -Referral to director of finance Jan 2023 for history of multiple reactions to medications for T2DM. Consider allergy vs intolerance Assessment & Plan (12/18/2022 1:20 PM EDT): Uncontrolled. Multiple intolrance to medications + noncompliance with endocrine appointents I stressed importance of following up closely with endocrinology agreed to be started on injectables, Bydureon 2mg once per week, she is advised that she may need to be changed to trulicity if medication not covered by insurance. Counseled re more frequent low calorie/carb meals. Encouraged physical activity as tolerated. Reminded to get labs done, ordered in June, copy of order given to pt today FU in 6 weeks Continue gliberide BID Assessment & Plan (08/30/2022 8:36 AM EST): -History of T2DM, poorly controlled -Multiple rxns to different PO medications -Also complicated by hx of liver disease - compensated cirrhosis likely d/t NAFLD, Meld score 7 Varicose veins of lower extremity 06/14/2022 Overview (02/19/2023): ?? Reported history of varicose vein surgery in [facility] ?? Last available consult note from Vascular 04/25/2020 ([facility]). Interested in re-establishing with vascular - referral placed Jan 2023 ?? Encouraged to cont with compression stockings Assessment & Plan (07/30/2022 12:50 PM EST): Counseled to wear compression stockings. Neg skin changes Benign neoplasm of female breast 04/27/2020 Overview (08/25/2023): [place] [facility] [place] Impression: pathology results revealed benign breast tissue with no suspicious findings. 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 05/28/2016 Overview (06/14/2022): [facility] Resolved Problems Problem Noted Date Diagnosed Date Resolved Date Achilles tendinosis 06/14/2022 02/20/20 23 Acute maxillary sinusitis 06/14/2022 Anterior tibialis tendinitis of right lower extremity 06/14/2022 02/19/2023 Chronic liver disease 06/14/20222022 Closed fracture of phalanx of foot 06/14/2022 02/19/2023 Diabetes mellitus 06/14/2022 06/14/2022 Disturbance in sleep behavior 06/14/2022 02/19/2023 Fall 06/14/2022 02/19/2023 Kidney stone 06/14/2022 02/19/2023 Chronic back pain 06/14/2022 02/19/2023 Neck pain 06/14/2022 02/19/2023 Neuropathy 06/14/2022 06/14/2022 Palpitations 06/14/2022 02/19/2023 Pyoderma 06/14/2022 02/19/2023 Slow transit constipation 06/14/2022 Chest pain 09/30/2018 02/19/2023 Tenosynovitis 04/28/2018 02/19/2023 Encounters Date Type Department Care Team Description 09/25/2024 11:00 AM EDT Office Visit [facility] [address] [place] [address] Rosemary Santiago FNP Type 2 diabetes mellitus with hyperglycemia, without long-term current use of insulin (CMS/HCC) (Primary Dx); Healthcare maintenance; Pain in finger of both hands; Anxiety 09/25/2024 Travel 09/23/2024 Population Health Risk Score [facility] () Department [address] [place] [id number] Provider, Population Health Generic 09/22/2024 Telephone [facility] [address] [place] [address] Rosemary Santiago FNP Chart Prep 09/11/[address] [facility] [address] [place] [address] Rosemary Santiago FNP 08/18/2024 Telephone [facility] [address] [place] [address] Wilber Massey MA Chart Prep 07/24/2024 Orders Only [facility] [address] [place] [address] Emperatriz Álvarez MD Type 2 diabetes mellitus with hyperglycemia, without long-term current use of insulin (CMS/HCC) (Primary Dx) 07/24/2024 Telephone [facility] [address] [place] [address] Emma Michael, Antonio 07/21/2024 3:20 PM EST Office Visit [facility] [address] [place] [address] Jennifer Kiser MD Facial trauma, initial encounter (Primary Dx); Chest trauma, initial encounter 07/21/2024 Travel 07/21/2024 Telephone [facility] [address] [place] [address] Rosemary Santiago FNP Nurse Triage 07/15/2024 Orders Only [facility] [address] [place] [id number] Clara Holloway MD Type 2 diabetes mellitus with hyperglycemia, without long-term current use of insulin (CMS/HCC) (Primary Dx) 07/15/[address] [facility] [address] [place] [address] Rosemary Santiago FNP 07/06/2024 Orders Only [facility] [address] [place] [address] Rosemary Santiago FNP Vulvovaginal candidiasis (Primary Dx) 07/03/2024 10:15 AM EST Office Visit [facility] [address] [place] [address] Rosemary Santiago FNP Vaginal symptom (Primary Dx); Type 2 diabetes mellitus with hyperglycemia, without long-term current use of insulin (CMS/HCC); Upper respiratory tract infection, unspecified type; Chronic pain of left knee; Urinary symptom or sign 07/03/2024 Travel 06/30/2024 10:30 AM EST Procedure Visit [address] [address] John Burns CNM Cervical cancer screening (Primary Dx); Atrophic vaginitis; Vaginal itching 06/30/2024 Travel 06/29/2024 Telephone [facility] [address] [place] [address] Wilber Massey MA Chart Prep from Last 3 Months Immunizations Name Administration Dates Next Due Hep A / Hep B 06/13/2017 Hep B, adult 01/03/2023 Influenza injectable quadriv alent IIV4 with preservative 04/23/2019,04/10/2018 Influenza injectable quadriv alent preservative free 03/22/2020 Influenza, IIV3, injectable 05/31/2014,1 ,03/03/2012,03/07,05/07/2007,04/22/2006 Influenza, Unspecified 07/26/2015 Pfizer Covid-19 Vaccine 12+ 02/21/2021 Pneumococcal Polysaccharide PPSV23 11/03/2013 Tdap 07/22/2010,10/10/2006 Social History Tobacco Use Types Packs/Day Years Used Date Smoking Tobacco: Never Passive Smoke Exposure: Never Smokeless Tobacco: Never Tobacco Cessation:Counseling Given: Not Answered Alcohol Use Standard Drinks/Week Comments Yes 0 [...] not to disclose 2021 10:23 AM EDT Last Filed Vital Signs Vital Sign Reading [...] Mass Index 29.39 09/25/2024 11:27 AM EDT Plan of Treatment Upcoming Encounters Date Type Department Care Team (Late st Contact Info) Description 09/30/2024 9:00 AM EDT Office Visit [facility] [address] [place] [address] Giorgio Álvarez 10/21/2024 10:00 AM EDT Office Visit [facility] OPTOMETRY [address] [place] [address] Mariano, Ashley, OD [address] [place] [address] Health Maintenance Due Date Last Done Comments CT Colonography 1974 Colonoscopy 1974 Colorectal Cancer Screening 1974 Dental Oral Exam 1974 Dental Prophylaxis 1974 Dental X-Ray: Bitewings 1974 Dental X-Ray: Full Mouth 1974 FIT DNA/Cologuard 1974 FIT 1974 FOBT 1974 Sigmoidoscopy 1974 Alcohol/Substance Use Screening 1986 Family Planning (PISQ) 1989 Pneumococcal Vaccine: 50+ Years (2 of 2 - PCV) 11/03/2014 11/03/2013 Hepatitis A Vaccines (2 of 3 - Hep A Twinrix risk 3-dose series) 07/11/2017 06/13/2017 DTaP/Tdap/Td Vaccines (3 - Td or Tdap) 07/22/2020 07/22/2010, 10/10/2006 Hepatitis B Vaccines (3 of 3 - 19+ 3-dose series) 02/28/2023 01/03/2023, 06/13/2017 Diabetes: Foot Exam 12/19/2023 12/18/2022, 12/18/2022, 12/18/2022, Additional history exists Diabetes: Urine Protein Screening 12/19/2023 12/18/2022, 08/08/2022, 06/06/2022, Additional history exists Zoster Vaccines (1 of 2) 2024 Mammogram 07/30/2024 07/30/2023, 09/2019, 04/27/2020, Additional history exists Lipid Panel 09/22/2024 09/23/2023, 05/24, 06/27/2020 Depression Screening 09/26/2024 09/27/2023, 09/27/19 24 Influenza Vaccine (#1) 2024 , 04/23/2019, 04/10/2018, Additional history exists Postponed from 02/23/2024 (Patient Refused) Diabetes: Hemoglobin A1C 12/25/2024 025, 04/17/2024, 12/27/2023, Additional history exists SDOH Screening 01/22/2025 01/23/2024 Eye Exam 04/23/2025 04/23/2024, 03/26, 04/23/2024, Additional history exists COVID-19 Vaccine ( season) 2025 02/21/2021 Postponed from 02/23/2024 (Patient Refused) Tobacco Screening 09/25/2025 09/25/2024 HPV/Cotest 06/30/2029 Pap Smear 06/30/2029 06/30/2024 RSV Patients and Patients Aged 60 years or older (1 - 1-dose 75+ series) 2049 HIV Screening Completed 06/06/2022 Hepatitis C Screening Completed 06/06/2022, 020 HIB Vaccines Aged Out No longer eligi ble based on patient's age to complete this topic HPV Vaccines Aged Out No longer eligi ble based on patient's age to complete this topic IPV Vaccines Aged Out No longer eligi ble based on patient's age to complete this topic Meningococcal Vaccine Aged Out No jr kai eligible based on patient's age to complete this topic RSV under 20 months Aged Out No longe r eligible based on patient's age to complete this topic Rotavirus Vaccines Aged Out No longer eligible based on patient's age to complete this topic Procedures Procedure Name Priority Date/Time Associated Diagnosis Comments POCT GLYCATED HEMOGLOBIN, TOTAL Routine 09/25/2024 1:17 PM EDT Type 2 diabetes mellitus with hyperglycemia, without long-term current use of insulin ([facility]) POCT GLUCOSE Routine 09/25/2024 1:17 PM EDT Type 2 diabetes mellitus with hyperglycemia, without long-term current use of insulin ([facility]) POCT URINALYSIS DIPSTICK Routine 09/25/2024 1:15 PM EDT Type 2 diabetes mellitus with hyperglycemia, without long-term current use of insulin ([facility]) POCT URINALYSIS DIPSTICK Routine 07/03/2024 10:42 AM EST Type 2 diabetes mellitus with hyperglycemia, without long-term current use of insulin ([facility]) POCT RAPID COVID ANTIGEN Routine 07/03/2024 10:41 AM EST Upper respiratory tract infection, unspecified type CULTURE, URINE, ROUTINE Routine 07/03/2024 10:35 AM EST Urinary symptom or sign BACTERIAL VAGINOSIS PANEL Routine 07/03/2024 10:30 AM EST Vaginal symptom POCT GLUCOSE Routine 07/03/2024 10:16 AM EST Type 2 diabetes mellitus with hyperglycemia, without long-term current use of insulin ([facility]) RESPIRATORY VIRAL PANEL PCR Routine 07/03/2024 12:00 AM EST Upper respiratory tract infection, unspecified type POCT WET M[place]/OMAR Routine 06/30/2024 11 :48 AM EST Vaginal itching PAP SMEAR Routine 06/30/2024 11:04 AM EST Cervical cancer screening LIPID PANEL, STANDARD Routine 09/23/2023 10:45 AM EDT Type 2 diabetes mellitus with hyperglycemia, without long-term current use of insulin (CMS/HCC) BI MAMMOGRAM SCREENING TOMOSYNTHESIS BILATERAL Routine 07/30/2023 10:25 AM EST Encounter for screening mammogram for malignant neoplasm of breast ALBUMIN, RANDOM URINE W/O CREATININE Routine 12/18/2022 10:04 AM EDT Type 2 diabetes mellitus with hyperglycemia, without long-term current use of insulin (CMS/HCC) HEPATITIS C AB W/REFL TO HCV RNA, QN, PCR Routine 06/06/2022 9:40 AM EST HIV 1/2 ANTIGEN/ANTIBODY, FOURTH GENERATION W/RFL Routine 06/06/2022 9:40 AM EST from Last 3 Months or Most Recently Relevant to Health Maintenance Results * (ABNORMAL) POCT HGB A1C (09/25/2024 1:17 PM EDT) Hemoglobin A1C 10.6(A) 4.0 - 6.0 % QC Media Lot # [id number] Lot# Expiration Date Blood 09/25/2024 1:17 PM EDT Rosemary Santiago CASING INSPECTOR POINT OF CARE TEST ENTER/EDIT ORDERABLES Final Result * (ABNORMAL) POCT Glucose (09/25/2024 1:17 PM EDT) Only the most recent of2 resultswithin the time period is included. Glucose Blood, POC 268(A) 60 - 200 mg/dL QC Media Lot # [id number] Lot# Expiration Date 80,025 Blood Capillary blood specimen / Unknown 09/25/2024 1:17 PM EDT Rosemary [facility] POINT OF CARE TEST ENTER/EDIT ORDERABLES Final Result * POCT Urinalysis (09/25/2024 1:15 PM EDT) Only the most recent of2 resultswithin the time period is included. Color, UA Yellow Clarity, UA Clear Glucose, UA 3+ 500+++ Bilirubin, UA Negative Ketones, UA Negative Spec Grav, UA 1.020 Blood, UA Negative Negative, None Detected pH, UA 7.0 Protein, UA Negative Urobilinogen, UA 4.0 Leukocytes, UA Negative Negative, Rare, Trace Nitrite, UA Negative Negative, None Detected Appearance, UA clear QC Media Lot # [id number] Lot# Expiration Date , Urine 09/25/2024 1:15 PM EDT Rosemary [facility] POINT OF CARE TEST ENTER/EDIT ORDERABLES Final Result * POCT Rapid Covid-19 BinaxNOW (07/03/2024 10:41 AM EST) Rapid COVID Ag Negative QC Media Lot # [id number] Lot# Expiration Date Swab 07/03/2024 10:4 1 AM EST Rosemary [facility] POINT OF CARE TEST ENTER/EDIT ORDERABLES Final Result * Culture, Urine, Routine (07/03/2024 10:35 AM EST) Urine Urine specimen obtained by clean catch procedure / Unknown 07/03/2024 10:35 AM EST 07/03/2024 1:58 PM EST Comment:UACC Narrative [facility] - 07/04/2024 11:22 AM EST Urine Culture No growth. Specimen Source: Urine clean catch [facility] MICROBIOLOGY - GENERAL ORD ERABLES Final Result [facility] [address] [place] [address] [phone] * (ABNORMAL) Bacterial Vaginosis (07/03/2024 10:30 AM EST) TRICHOMONAS VAGINALIS DETECTION BY PCR NOT DETECTED Not Detect [facility] BACTERIAL VAGINOSIS DETECTION BY PCR NEGATIVE Negative [facility] Comment:The BV organism targ ets of the Xpert Xpress MVP test can becommensal in women; Xpert Xpress MVP positive results forbacterial vaginosis should be considered in conjunction withother clinical and patient information to determine thedisease status. Organisms that are not detected by the XpertXpress MVP test have also been reported to be associatedwith BV and aerobic vaginitis.The Xpert Xpress MVP test performance has not been evaluatedin patients under the age of 14. WENDY GROUP DETECTION BY PCR DETECTED(A) Not Detect [facility] Wendy glab krusei PCR NOT DETECTED Not Detect [facility] Swab Vaginal structure / Unknown 07/03/2024 10:30 AM EST 07/03/2024 1:58 PM EST Rosemary Santiago [facility] MICROBIOLOGY - GENERAL ORD ERABLES Final Result Performing Organization Address [facility] Co de Phone Number [facility] [address] [place] [phone] * (ABNORMAL) Respiratory Viral Panel PCR (07/03/2024 12:00 AM EST) Adenovirus PCR Not Detected Not Detect. [facility] Bordetella pertussis PCR Not Detected Not Detect. [facility] Comment:Interpret results wi th caution. If B. pertussis isspecifically suspected, additional testing using analternate method is recommended. Bordetella parapertussis PCR Not Detected Not Detect. [facility] Chlamydia pneumoniae PCR Not Detected Not Detect. [facility] Coronavirus 229E PCR Not Detected Not Detect. [facility] Coronavirus HKU1 PCR Not Detected Not Detect. [facility] Coronavirus NL63 PCR Not Detected Not Detect. [facility] Coronavirus OC43 PCR Not Detected Not Detect. [facility] SARS-CoV-2 PCR Detected(A) Not Detect. [facility] Comment:The 2019 novel coron ovirus (SARS-Cov-2) target nucleic acidsare detected.Result reported to [facility].All test results must be correlated with clinical findings.This test has been authorized by the FDA under an EmergencyUse Authorization (EUA) for use by authorized laboratories. Influenza A PCR Not Detected Not Detect. [facility] Influenza B PCR Not Detected Not Detect. [facility] Human metapneumovirus PCR Not Detected Not Detect. [facility] Rhino/Enterovirus PCR Not Detected Not Detect. [facility] Mycoplasma pneumoniae PCR Not Detected Not Detect. [facility] Parainfluenza 1 PCR Not Detected Not Detect. [facility] Parainfluenza 2 PCR Not Detected Not Detect. [facility] Parainfluenza 3 PCR Not Detected Not Detect. [facility] Parainfluenza 4 PCR Not Detected Not Detect. [facility] RSV PCR Not Detected Not Detect. [facility] Resp Panel NA Note See Note H [facility] Comment:All results must be correlated with clinical findings.Negative results should not be used as the sole basis fordiagnosis, treatment, or other management decisions.A negative result does not exclude the possibility of viralor bacterial infection. Negative results may occur from thepresence of sequence variants in the region targeted by theassay, the presence of inhibitors, an infection caused by anorganism not detected by the panel, or lower respiratorytract infections that are not detected by a nasopharyngealswab specimen. Test results may also be affected byconcurrent antiviral/antibacterial therapy or levels oforganism in the specimen that are below the limit ofdetection for this test.This assay is performed by Multiplexed PCR, utilizing [employer] Array. Swab 07/03/2024 07/03/2024 Rosemary Santaigo [facility] BLOOD ORDERABLES Final Res ult [facility] [address] [place] [phone] * POCT fern test, vaginal fluid manually resulted (06/30/2024 11:48 AM EST) [facility] Prep Negative Comment:pH 4.5, neg whiff, n eg clue, neg trich, neg wbc, neg yeast Vaginal Fluid Vaginal structure / Unknown 06/30/2024 11:48 AM EST John Burns CNM POINT OF CARE TEST ENTER/ EDIT ORDERABLES Final Result * Pap Smear (06/30/2024 11:04 AM EST) Swab 06/30/2024 11:0 4 AM EST 07/01/2024 10:20 AM EST Narrative [facility] - 07/06/2024 12:50 PM EST ----- ------- Name: Barb Lo ? Age/Sex: 49/F ? : 1975 Unit#: [id number] ?? Attend Dr: JOHN BURNS CNM ?Re06/30/24 ?Status: DEP REF ? Location: HO.HHCLNP ? Disch: ? ----- ------- SPEC : [id number] ?RECD: 07/01/24 ? STATUS: ??SOUT ? REQ NUM: [id number] ? PETAR: 06/30/24 ? SUBM DR: JOHN BURNS CNM ? ENTERED: ??07/01/24 ?SP TYPE: Pap Smr ?OTHR : ? ORDERED: ??Pap Smear ? Interpretation ?? Satisfactory for evaluation. ?? Negative for intraepithelial lesion or malignancy. ? HPV High Risk: ??Negative ? HPV Genotyping 16: ??Negative ?? HPV Genotyping 18: ??Negative ?Clinical Information LMP: Postmenopausal Previous PAP test: Unknown date/findings Other surgery: Hysterectomy ? Material Received ?? ThinPrep-Cervical ----- ------- Signed (signature on file) FRANKY Parsons ([facility]) 07/06/24 1250 ? ----- ------- ? END OF REPORT ? us John Burns [facility] CYTOLOGY ORDERABLES F inal Result [facility] [address] [place] [phone] * (ABNORMAL) Lipid Panel, Standard (09/23/2023 10:45 AM EDT) Triglycerides 156(H) <150 mg/dL [facility] Comment:Desirable Triglyceri de: less than 150 mg/dLBorderline High Triglyceride 150-199 mg/dLHigh Triglyceride: 200-499 mg/dLVery High Triglyceride: greater than or equal to 5OO mg/dL Cholesterol 195 <200 mg/dL [facility] Comment:Desirable Cholestero l: less than 200 mg/dLBorderline High Cholesterol: 200-239 mg/dLHigh Cholesterol: greater than 239 mg/dL LDL Cholesterol Calculated 118(H) <100 mg/dL [facility] Comment:Desirable LDL: less than 100 mg/dLNear Optimal/Above Optimal LDL: 110- 129 mg/dLBorderline High LDL: 130-159 mg/dLHigh LDL: 160-189 mg/dLVery High LDL: greater than or equal to 190 mg/dL HDL Cholesterol 46 >40 mg/dL [facility] Comment:Desirable HDL: great er than 40 mg/dL Note: This HDL assay may give artificially low results in patients with liver disease. Blood Venous blood specimen / Unknown 09/23/2023 10:45 AM EDT 09/23/2023 1:16 PM EDT us Rosemary Santiago CASING INSPECTOR LAB BLOOD ORDERABLES Final Res ult [facility] [address] [place] [phone] * BI Mammogram Screening Tomosynthesis Bilateral (07/30/2023 10:25 AM EST) Anatomical Region Laterality Modality Breast Bilateral Mammography 07/30/2023 10:2 5 AM EST Narrative 08/25/2023 9:04 AM EST ? [facility] ? [address] ?[place] [address] ? Mammography Report ? Signed ? Patient: Lo,Barb ?MR#: [id number] ? : 1975 ?Acct:[id number] ? Age/Sex: 48 / F ?ADM Date: 07/30/23 ? Loc: HO.MAMMO ? Attending Dr: Rosemary Santiago CASING INSPECTOR ? Ordering Physician: Pamela,Rosemary CASING INSPECTOR ?Results: 2Benig ?? n Findings ? Date of Service: 07/30/23 ?Follow Up: 1 Year From Orig ?? inal Mammogram ? Procedure(s): MM tomosynthesis screening BI ?? Accession Number(s): [id number] ? cc: Rosemary Santiago CASING INSPECTOR ? EXAMINATION: ?? MM SCREENING DIGITAL BREAST TOMOSYNTHESIS, BILATERAL ? CLINICAL INFORMATION: ? Screening. Asymptomatic. ? COMPARISON: ?? Mammography: This study is compared with prior exams dating back to ?? 2018. ? TECHNIQUE: ?? Digital breast tomosynthesis is performed in both the craniocaudal and ?? mediolateral oblique views along with computer-aided detection (CAD). ?? Synthesized 2D images are generated from the tomosynthesis. ? FINDINGS: ?? There are scattered areas of fibroglandular density (ACR BI-RADS breast ?? composition Category b). ? There are no significant masses, abnormal calcifications, or other ?? abnormalities. ? There is a biopsy tissue marker in the upper outer quadrant of the ?? right breast. ? MM/MM tomosynthesis screening BI ?? IMPRESSION: ?? No mammographic evidence of malignancy. ? ASSESSMENT: ? BI-RADS BI-RADS 2 - Benign Findings ? RECOMMENDATION: ?? Routine annual mammography screening. ? 1 year F/U ? This examination should not preclude the clinical evaluation of a ?? suspicious palpable abnormality. ? This patient's information was entered into a reminder system with a ?? target due date for their next mammogram. ? Dictated By: ?Xiao Munroe MD ? Signed By: ?<Electronically signed by Xiao Munroe MD in OV> ? 08/25/23 0901 ? DD/ 1025 ? TD/TT: ? Digital Marketing Executive: ? Procedure Note Americo Capellan - 08/25/2023 [facility] [address] [place] [address] [place] [address] Mammography Report Signed Patient: Barb LoMR#: [id number] : 1975Acct:[id number] Age/Sex: 48 / FADM Date: 07/30/23 Loc: HO.MAMMO Attending Dr: Rosemary Santiago CASING INSPECTOR Ordering Physician: Rosemary SantiagoPResults: 2Benig n Findings Date of Service: 07/30/23Follow Up: 1 Year From [facility] ina Mammogram Procedure(s): MM tomosynthesis screening BI Accession Number(s): [id number] cc: Rosemary Santiago EXAMINATION: MM SCREENING DIGITAL BREAST TOMOSYNTHESIS, BILATERAL CLINICAL INFORMATION: Screening. Asymptomatic. COMPARISON: Mammography: This study is compared with prior exams dating back to 2018. TECHNIQUE: Digital breast tomosynthesis is performed in both the craniocaudal and mediolateral oblique views along with computer-aided detection (CAD). Synthesized 2D images are generated from the tomosynthesis. FINDINGS: There are scattered areas of fibroglandular density (ACR BI-RADS breast composition Category b). There are no significant masses, abnormal calcifications, or other abnormalities. There is a biopsy tissue marker in the upper outer quadrant of the right breast. MM/MM tomosynthesis screening BI IMPRESSION: No mammographic evidence of malignancy. ASSESSMENT: BI-RADS BI-RADS 2 - Benign Findings RECOMMENDATION: Routine annual mammography screening. 1 year F/U This examination should not preclude the clinical evaluation of a suspicious palpable abnormality. This patient's information was entered into a reminder system with a target due date for their next mammogram. Dictated By: Xiao Munroe MD Signed By: <Electronically signed by Xiao Munroe MD in OV> 08/25/23 0901 DD/ 1025 TD/TT: Digital Marketing Executive: Rosemary RIBEIRO IMG BI PROCEDURES Edited Resul t - Final * Albumin, Random Urine W/O Creatinine (12/18/2022 10:04 AM EDT) Albumin, Urine 2.9 See Note: mg/dL [facility] Comment: Reference Range: Reference Range Not established [facility] Comment: The ADA defines abnormalities in albumin excretion as follows: Albuminuria Category ? Result (mcg/mg creatinine) Normal to Mildly increased ?<30 Moderately increased ?30-299 Severely increased ?> OR = 300 The ADA recommends that at least two of three specimens collected within a 3-6 month period be abnormal before considering a patient to be within a diagnostic category. Urine Urine specimen obtained by clean catch procedure / Unknown 12/18/2022 10:04 AM EDT 12/18/2022 10:04 AM EDT Narrative [facility] - 12/19/2022 5:24 PM EDT FASTING:NO FASTING: NO Karen Burns MD LAB URINE ORDERABLES Fin al Result Performing Organization Address [facility] de Phone Number [address] [phone] [facility] [address] [place] [phone] * Hepatitis C Antibody with Reflex to HCV, RNA, Quantitative, Real-Time PCR (06/06/2022 9:40 AM EST) Hepatitis C Antibody NON-REACT ROOSEVELT NON-REACT R[place]ELT [facility] Index 0.03 <1.00 [facility] Comment: HCV antibody was non-reactive. There is no laboratory evidence of HCV infection. In most cases, no further action is required. However, if recent HCV exposure is suspected, a test for HCV RNA (test code 33124) is suggested. For additional information please refer to http://education.Amura/faq/QOF31s3 (This link is being provided for informational/ educational purposes only.) 06/06/2022 9:40 AM EST 06/06/2022 9:41 AM EST Narrative [facility] - 06/06/2022 8:51 PM EST FASTING:YES FASTING: YES Karen Burns MD LAB BLOOD ORDERABLES Fin al Result Performing Organization Address [facility] de Phone Number [address] [phone] [facility] [address], [place] [address] * HIV-1/2 Antigen and Antibodies, Fourth Generation, with Reflexes (06/06/2022 9:40 AM EST) HIV Antigen/Antibody, 4th Generation NON-REAC TIVE NON-REAC TIVE [facility] Comment: HIV-1 antigen and HIV-1/HIV-2 antibodies were not detected. There is no laboratory evidence of HIV infection. PLEASE NOTE: This information has been disclosed to you from records whose confidentiality may be protected by state law. ??If your state requires such protection, then the state law prohibits you from making any further disclosure of the information without the specific written consent of the person to whom it pertains, or as otherwise permitted by law. A general authorization for the release of medical or other information is NOT sufficient for this purpose. ?? For additional information please refer to http://education.Amura/faq/RNB551 (This link is being provided for informational/ educational purposes only.) The performance of this assay has not been clinically validated in patients less than 2 years old. 06/06/2022 9:40 AM EST 06/06/2022 9:41 AM EST Narrative [facility] - 06/06/2022 8:51 PM EST FASTING:YES FASTING: YES Karen Burns MD LAB BLOOD ORDERABLES Fin al Result [facility] [address], [place] [address] [facility] [address], [place] [address] from Last 3 Months or Most Recently Relevant to Health Maintenance Insurance [facility] C3 Care Teams Hand I Cutter Relationship Specialty Start Date End Date Rosemary Santiago FNP [address] [place] [address] PCP - General Family Medicine 02/19/23
--- OUTSIDE RECORDS SUMMARY | 2024-09-25 15:48 | XMS_ITS | Clinical Summary ---
Author Organization [facility] Address [address] [place] [address] Care Team Providers Care Public Health Dentist Name Role Phone Unavailable Primary Care Provider Unavailabl e Source Comments PLEASE NOTE, if this patient is a minor, it may be UNLAWFUL to discuss sensitive information that is contained in these records (such as FAMILY PLANNING, MENTAL HEALTH or SUBSTANCE ABUSE) with the minor patient's parent or other person without the patient's specific authorization.[facility] Allergies Active Allergy Reactions Criticality Noted Date Comments Hydrocodone-Acetaminophen Rash 04/11/2016 Oxycodone-Acetaminophen Rash 04/11/2016 Simvastatin Rash 04/11/2016 Medications blood-glucose meter kit monitoring kitIndications: Uncontrolled type 2 diabetes mellitus without complication, without long-term current use of insulin as needed for blood glucose monitoring Diagnosis:E11.6 5 for a lifetime. Freestyle quantity: 1 1 Each 7 Active lisinopril (PRINIVIL,ZESTR IL) 5 mg tabletIndicatio ns:Benign essential HTN Take 1 Tab by mouth once daily 30 Tab 11 7 Active clobetasol (TEMOVATE) 0.05 % gelIndications: Venous stasis dermatitis of right lower extremity Apply topically 2 (two) times daily For up to two weeks on right leg 15 g 1 7 Active orphenadrine (NORFLEX ER) 100 mg 12 hr tabletIndicatio ns:Chronic midline thoracic back pain Take 1 Tab by mouth nightly at bedtime Swallow whole. Do not crush or chew. 30 Tab 2 7 Active lancets (FREESTYLE LANCETS) 28 gaugeIndication s:Uncontrolled type 2 diabetes mellitus without complication, without long-term current use of insulin Freestyle lite lancets, use BID, dx E11.9 100 Each 11 7 Active valsartan (DIOVAN) 160 mg tabletIndicatio ns:Benign essential HTN Take 1 Tab by mouth nightly at bedtime 30 Tab 6 8 Active glipiZIDE (GLUCOTROL XL) 5 mg ER, 24 hour tabletIndicatio ns:Uncontrolled type 2 diabetes mellitus without complication, without long-term current use of insulin Take 1 Tab by mouth once daily with breakfast Swallow whole. Do not break, crush or chew. 30 Tab 1 8 Active metFORMIN (GLUCOPHAGE-XR) 500 mg 24 hr tablet TAKE 2 TABLETS BY MOUTH TWICE DAILY. SWALLOW WHOLE. DO NOT BREAK, CRUSH OR CHEW 120 Tab 8 Active metFORMIN (GLUCOPHAGE-XR) 500 mg 24 hr tablet TAKE 2 TABLETS BY MOUTH TWICE DAILY. SWALLOW WHOLE. DO NOT BREAK, CRUSH OR CHEW 120 Tab 8 Active FREESTYLE LITE STRIPS stripsIndicatio ns:Controlled type 2 diabetes mellitus without complication, without long-term current use of insulin ([facility]) USE TO TEST BLOOD SUGARS DAILY ACCORDING TO ORAL MEDICATION SCHEDULE GIVEN TO PATIENT 50 Each 8 Active metFORMIN (FORTAMET) 1,000 mg 24 hr tabletIndicatio ns:Uncontrolled type 2 diabetes mellitus without complication, without long-term current use of insulin TAKE 1 TABLET BY MOUTH TWICE DAILY WITH FULL GLASS OF WATER. SWALLOW WHOLE. DO NOT BREAK, CRUSH OR CHEW 60 Tab 8 Active metFORMIN (GLUCOPHAGE-XR) 500 mg 24 hr tablet TAKE 2 TABLETS BY MOUTH TWICE DAILY. SWALLOW WHOLE. 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 follows at [facility], normal liver function. suspect NAFLD History of pelvic mass: alida gn per pt, sp oophorectomy and hysterectomy also due to benign reason Overview (04/11/2016): Dr Marti Uncontrolled type 2 diabetes mellitus without complication, without long-term current use of insulin Fibromyalgia Low back pain Overview (08/08/2016): 06/10/[address] Koenig at [facility]. Dx: neck sprain, thoracic sprain, lumbar sprain. Advised motrin 2000 mg 1-2 tabs BID, tizanidine 2 mg 1-2 tabs qHS, PT, exercises, f/u 3 weeks Benign essential HTN Immunizations Immunization Administration Dates Next Due HEP A-HEP B 06/13/2017 Family History Medical History Relation Name Comments Cancer Father colon Diabetes Father Cancer Maternal Grandmother Breast Diabetes Maternal Grandmother Diabetes Mother Cancer Paternal Grandmother ovaries Relation Name Status Comments Father Maternal Grandmother Mother Paternal Grandmother Social History Tobacco Use Types Packs/Day Years Used Date Smoking Tobacco: Former Smokeless Tobacco: Never Alcohol Use Standard Drinks/Week Comments No 0 (1 standard drink = 0.6 oz pur e alcohol) Social Connections Answer Date Recorded Social Connections and Isolation 0 02/15/2019 Financial Resource Strain Answer Date R ecorded Financial Resource Strain 0 2018 Stress Answer Date Recorded Stress 0 02/15/2019 Physical Activity Answer Date Recorded Physical Activity 0 02/15/2019 Food Insecurity Answer Date Recorded Food 0 02/15/2019 Transportation Needs Answer Date Record ed Transportation 0 02/15/2019 Housing Stability Answer Date Recorded Housing 0 02/15/2019 Safety and Environment Answer Date Lionel rded Safety 0 02/15/2019 Utilities Answer Date Recorded Utilities 0 02/15/2019 Employment Answer Date Recorded Employment 0 02/15/2019 Comments No Sex and Gender Information Value Date Recorded Sex Assigned at Female 04/10/2017 8:02 AM PDT Legal Sex Female 12:35 PM PDT Gender Identity Female 04/10/2017 8:02 AM PDT Sexual Orientation Straight 04/10/2017 8: 02 AM PDT Occupation Industry Job Start Date Job End Date unemployed Not on file Not on file Not on file Last Filed Vital Signs Vital Sign Reading Time Taken Comments Blood Pressure 128/90 08/05/2017 9:23 AM EST Pulse 76 08/05/2017 9:23 AM EST Temperature 37.2 ??C (98.9 ??F) 08/05/2017 9:23 AM ES T Respiratory Rate 19 08/05/2017 9:23 AM EST Oxygen Saturation 99% 06/13/2017 2:57 PM EST Inhaled Oxygen Concentration - - Weight 83.4 kg (183 lb 12.8 oz) 08/05/2017 9:23 AM EST Height 175.3 cm (5' 9 ) 08/05/2017 9:23 AM EST Body Mass Index 27.14 08/05/2017 9:23 AM EST Plan of Treatment Not on file Insurance [facility]
--- OUTSIDE RECORDS SUMMARY | 2024-09-25 15:48 | XMS_ITS | Encounter Summary ---
Author Organization [employer] Address [address] [facility] 7t [place] [address] Care Team Providers Care Jumpbasting Machine Operator Name Role Phone Karen Burns MD Primary Care Provider + Rosemary Santiago Primary Care Provider [phone] Ted Hood Unavailable Unavailable Encounter Details Date Type Department Care Team (Late Contact Info) Description 06/06/2022 Orders Only [facility] [address] [place], [place] [id number] Barb Goodwin LPN Social History Tobacco Use Types Packs/Day Years Used Date Smoking Tobacco: Never Assessed Comments Unknown Sex and Gender Information Value Date Recorded Sex Assigned at Female 04/23/2022 10:23 AM EDT Legal Sex Female 10:23 AM EDT Gender Identity Female 08/30/2022 8:11 AM EST Sexual Orientation Choose not to disclose 2021 10:23 AM EDT documented as of this encounter Plan of Treatment Upcoming Encounters Date Type Department Care Team (Late Contact Info) Description 09/30/2024 9:00 AM EDT Office Visit [facility] CH[facility] ADULT DENTAL [address] [place] [address] Giorgio Álvarez 10/21/2024 10:00 AM EDT Office Visit [facility] OPTOMETRY [address] [place] [address] Ashley Quintana, OD [address] [place] [address] documented as of this encounter Visit Diagnoses Not on filedocumented in this encounter Care Teams Jumpbasting Machine Operator Relationship Specialty Start Date End Date Karen Burns MD [address] [place] [address] PCP - General Family Medicine 04/21/19 02/18/23 Rosemary Santiago FNP [address] [place] [address] PCP - General Family Medicine 02/19/23 Ted Hood Community Health Worker 01/23/24 06/24/24 documented as of this encounter
--- OUTSIDE RECORDS SUMMARY | 2024-09-25 15:48 | XMS_ITS | Encounter Summary ---
Author Organization [employer] Address [address] [facility] [address] 7[address] [place] [address] Care Team Providers Care Electrical Prospecting Observer Name Role Phone Rosemary Santiago Primary Care Provider [phone] Ted Hood Unavailable Unavailable Reason for Visit * Reason Onset Date Comments Referral 04/08/2023 Encounter Details Date Type Department Care Team ([facility] st Contact Info) Description 04/08/2023 Telephone [facility] MED & PEDS [address] [place] [address] Rosemary Santiago FNP [address] [place] [address] Referral Social History Tobacco Use Types Packs/Day Years Used Date Smoking Tobacco: Never Smokeless Tobacco: Never Alcohol Use Standard Drinks/Week Comments Yes 0 (1 standard drink = 0.6 oz pur e alcohol) ghazala PHQ-2 Answer Date Recorded Patient Health Questionnaire-2 Score 1 06/28/2022 Housing Stability Answer Date Recorded What is your housing situation today? I have dirk graham 04/08/[address] you li ve. Do you have problems with any of the following? None of the above 04/08/2023 Food Insecurity Answer Date Recorded Within the past 12 months, y ou worried that your food would run out before you got money to buy more: Sometimes True 2022 Within the past 12 months,th e food you bought just didn't last and you didn't have enough money to get more: Sometimes True 04/08/2023 Transportation Answer Date Recorded In the past 12 months, has l ack of transportation kept you from medical appts, meetings, work or from getting things needed for daily living? No 04/08/2023 Utilities Answer Date Recorded In the past 12 months, has t he electric, gas, oil or water company threatened to shut off services in your home? Yes 03/30/2023 Depression Answer Date Recorded Patient Health Questionnaire-2 Score 1 06/28/2022 Comments Unknown Sex and Gender Information Value Date Recorded Sex Assigned at Female 04/23/2022 10:23 AM EDT Legal Sex Female 10:23 AM EDT Gender Identity Female 08/30/2022 8:11 AM EST Sexual Orientation Choose not to disclose 2021 10:23 AM EDT documented as of this encounter Miscellaneous Notes * Telephone Encounter - Lala Arreguin - 04/08/2023 4:06 PM EDT Tc from pt calling to request switch Podiatry specialist due to insurance. documented in this encounter Plan of Treatment Upcoming Encounters Date Type Department Care Team (Late st Contact Info) Description 09/30/2024 9:00 AM EDT Office Visit [facility] CHC ADULT DENTAL [address] [place] [address] Giorgio Álvarez 10/21/2024 10:00 AM EDT Office Visit [facility] OPTOMETRY [address] [place] [address] Mariano, Ashley, OD [address] [place] [address] documented as of this encounter Visit Diagnoses Not on filedocumented in this encounter Care Teams Electrical Prospecting Observer Relationship Specialty Start Date End Date Rosemary Santiago FNP [address] [place] [address] PCP - General Family Medicine 02/19/23 Ted Hood Community Health Worker 01/23/24 06/24/24 documented as of this encounter
--- OUTSIDE RECORDS SUMMARY | 2024-09-25 15:48 | XMS_ITS | Encounter Summary ---
Author Organization [facility] [employer] Address [address] [facility] 7t [place] [address] Care Team Providers Care Award Machine Operator Name Role Phone Karen Burns MD Primary Care Provider + Rosemary Santiago Primary Care Provider Ted Hood Unavailable Unavailable Reason for Visit * Reason Onset Date Comments Appointment Request 10/23/2022 Encounter Details Date Type Department Care Team ([facility] st Contact Info) Description 10/23/2022 Telephone [facility] [address] [place], [place] [phone] Karen Burns MD [address] [place], [place] [phone] Appointment Request Social History Tobacco Use Types Packs/Day Years Used Date Smoking Tobacco: Never Smokeless Tobacco: Never Alcohol Use Standard Drinks/Week Comments Yes 0 (1 standard drink = 0.6 oz pur e alcohol) rare PHQ-2 Answer Date Recorded Patient Health Questionnaire-2 Score 1 06/28/2022 Depression Answer Date Recorded Patient Health Questionnaire-2 Score 1 06/28/2022 Comments Unknown Sex and Gender Information Value Date Recorded Sex Assigned at Female 04/23/2022 10:23 AM EDT Legal Sex Female 10:23 AM EDT Gender Identity Female 08/30/2022 8:11 AM EST Sexual Orientation Choose not to disclose 2021 10:23 AM EDT COVID-19 Exposure Response Date Recorded In the last 10 days, have yo u been in contact with someone who was confirmed or suspected to have Coronavirus/COVID-19? No / Unsure 10/19/2022 12:14 PM EDT documented as of this encounter Miscellaneous Notes * Telephone Encounter - Eddie Rucker Vee - 10/23/2022 9:41 AM EDT Tc from pt requesting to r/s appt 10/19/2022 for Follow up with provider. Please contact pt at [phone] documented in this encounter Plan of Treatment Upcoming Encounters Date Type Department Care Team (Late st Contact Info) Description 09/30/2024 9:00 AM EDT Office Visit [facility] CH[facility] ADULT DENTAL [address] [place] [address] Giorgio Álvarez 10/21/2024 10:00 AM EDT Office Visit [facility] OPTOMETRY [address] [place] [address] Mariano, Ashley, OD [address] [place] [address] documented as of this encounter Visit Diagnoses Not on filedocumented in this encounter Care Teams Award Machine Operator Relationship Specialty Start Date End Date Karen Burns MD [address] [place] [address] PCP - General Family Medicine 04/21/19 02/18/23 Rosemary Santiago FNP [address] [place] [address] PCP - General Family Medicine 02/19/23 Ted Hood Community Health Worker 01/23/24 06/24/24 documented as of this encounter
--- OUTSIDE RECORDS SUMMARY | 2024-09-25 15:48 | XMS_ITS | Encounter Summary ---
Author Organization [employer] Address [address] [facility] [address] [place] [address] Care Team Providers Care Case Worker Name Role Phone Rosemary Santiago Primary Care Provider [phone] Ted Hood Unavailable Unavailable Reason for Visit * Reason Onset Date Comments Nurse Triage 06/23/2024 Encounter Details Date Type Department Care Team ([facility] st Contact Info) Description 06/23/[address] [facility] [address] [place] [address] Rosemary Santiago FNP [address] [place] [address] Nurse Triage Social History Tobacco Use Types Packs/Day Years [...] Access Q2 Not on file 02/24/2024 Comments Unknown Sex and Gender Information Value Date Recorded Sex Assigned at Female 04/23/2022 10:23 AM EDT Legal Sex Female 10:23 AM EDT Gender Identity Female 08/30/2022 8:11 AM EST Sexual Orientation Choose not to disclose 2021 10:23 AM EDT documented as of this encounter Miscellaneous Notes * Telephone Encounter - Ricardo Baird - 06/23/2024 8:19 AM EST Symptoms: Chest Congestion, Sinus Symptoms, Sore Throat Outcome: Schedule an appointment to be seen within 24 hours Reason: Caller denied all higher acuity questions Pakistani Speaker (accepted Dairy Nutrition Specialist) Please contact pt at [phone]. documented in this encounter Plan of Treatment Upcoming Encounters Date Type Department Care Team (Late st Contact Info) Description 09/30/2024 9:00 AM EDT Office Visit [facility] CHC ADULT DENTAL [address] [place] [address] Giorgio Álvarez 10/21/2024 10:00 AM EDT Office Visit [facility] OPTOMETRY [address] [place], [place] [phone] Ashley Quintana, OD [address] [place] [address] documented as of this encounter Visit Diagnoses Not on filedocumented in this encounter Additional Health Concerns Assessment Noted Time PHQ-9 Depression Total Score: 4 09/27/19 24 10:48 AM EDT documented as of this encounter Care Teams Case Worker Relationship Specialty Start Date End Date Rosemary Santiago FNP [address] [place] [address] PCP - General Family Medicine 02/19/23 Ted Hood Community Health Worker 01/23/24 06/24/24 documented as of this encounter
--- OUTSIDE RECORDS SUMMARY | 2024-09-25 15:48 | XMS_ITS | Clinical Summary ---
Author Organization [facility] Address [address] [place] [address] Phone Care Team Providers Care Rn Surgery Icu Name Role Phone Brandon Lea MD Primary Care Provider [phone] Allergies Active Allergy Reactions Criticality Noted Date Comments Amoxicillin-Pot Clavulanate 07/04/19 13 Other Reaction(s): Rash/Dermatitis Hydrocodone-Acetaminophen 06/29/2008 Nausea Simvastatin 02/26/2008 Muscle pain Sitagliptin 07/12/2015 dizzy Medications glucose blood test strip Use to test blood sugar 3 times daily 6 Active lisinopriL (PRINIVIL,ZESTR IL) 5 mg tablet Take 1 tablet (5 mg total) by mouth 1 (one) time each day. 6 Active metFORMIN (GLUCOPHAGE) 1,000 mg tablet 1 po bid 6 Active FREESTYLE LANCETS MISC USE TO TEST BLOOD SUGAR THREE TIMES DAILY . 6 Active UNABLE TO FIND Insulin Pen Needle (B-D ULTRAFINE III SHORT PEN) 31G X 8 MM Misc, 1 Each by Does not apply route at bedtime. 6 Active glyBURIDE (DIABETA) 5 mg tablet 2 po bid 6 Active insulin glargine (Lantus Solostar U-100 Insulin) 100 unit/mL (3 mL) injection pen Inject 10 Units into the skin at bedtime. Then increase by 2 ux every third day until fbs <130 up to 30 ux 6 Active ergocalciferol (VITAMIN D-2) 1,250 mcg (50,000 unit) capsule Take 1 capsule by mouth once a week. 5 Active omeprazole OTC (PriLOSEC OTC) 20 mg EC tablet Take 1 tablet (20 mg total) by mouth 1 (one) time each day. 5 Active blood-glucose meter kit 1 Device by Does not apply route daily. 5 Active ketoconazole (NIZORAL) 2 % cream APPLY TID AFFECTED AREA 3 Active alcohol swabs (Alcohol Prep Pads) pads, medicated use BID 9 Active Active Problems Problem Noted Date Diagnosed Date Eczema 05/31/2014 GERD (gastroesophageal reflux disease) 3 Microalbuminuria 03/09/2013 Overview (05/28/2024): Last elevated on 09/01/2012 at 19. Breast mass 02/05/2012 Overview (05/28/2024): Biopsy was benign Fatty liver 10/16/2011 Vitamin D deficiency 03/07/2010 HTN (hypertension) 08/19/2009 Type 2 diabetes mellitus 06/21/2009 Overview (05/28/2024): DM (diabetes mellitus), type 2, uncontrolled, with renal complications Hx of varicose veins 02/26/2008 Numbness of toes 12/17/2007 Overview (05/28/2024): Left toe Heartburn 04/14/2007 Pain in joint, lower leg 12/18/2006 Cervicalgia 07/03/2006 Pain in joint, shoulder region 07/03/2006 Fibromyalgia 03/11/2006 Overview (05/28/2024): IMO update Irritable bowel syndrome 03/11/2006 Lumbago 03/11/2006 Obesity, unspecified 03/11/2006 Hyperlipidemia 03/11/2006 Overview (05/28/2024): Patient is not using the statin prescribed to her in 2008 Immunizations Name Administration Dates Next Due Influenza trivalent, with pr eservative (Fluzone; Afluria) 6mo and older 05/31/2014,04/08/2013,03/03/2012,03/07,05/07/2007,04/22/2006 Influenza, Unspecified 07/26/2015 Pneumococcal polysaccharide 23 valent (Pneumovax 23) 2yo and older 11/03/2013 Tdap Tetanus diptheria acell ular pertussis (Boostrix; Adacel) 7yo and older 10/10/2006 Surgical History Surgery Date Site/Laterality Comments TUBAL LIGATION PROCEDURE: HISTORICAL TUBAL LIGATION ESOPHAGOGASTRODUODENOSCOPY 03/06/2010 PROCEDURE: IA EGD TRANSORAL BIOPSY SINGLE/MULTIPLE; COMMENT: Normal esophagus, mild gastritis-biopsy:chronic gastritis(Hpylori+), nl duodenum-biopsy:Nl COLONOSCOPY W/ BIOPSIES 03/06/2010 PROCEDURE: IA COLONOSCOPY STOMA W/BIOPSY SINGLE/MULTIPLE; COMMENT: Up to cecum, good preparation, normal colon exam. 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) OTHER SURGICAL HISTORY 2011 PROCEDURE: ---- OTHER ----; COMMENT: kidney stones HYSTERECTOMY 2010 PROCEDURE: HISTORICAL HYSTERECTOMY; COMMENT: CAPRI BREAST BIOPSY Left PROCEDURE: BX BREAST; PERC NEEDLE CORE W/IMAG GUID Medical History Medical History Date Comments Obesity, unspecified 03/11/2006 DX:Obesity, unspecified Other and unspecified hyperlipidemia 03/11/2006 DX:Other and unspecified hyperlipidemia Myalgia and myositis, unspecified 03/11/2006 DX:Myalgia and myositis, unspecified Irritable bowel syndrome 03/11/2006 DX:Irri table bowel syndrome Lumbago 03/11/2006 DX:Lumbago Type II or unspecified type diabetes mellitus without mention of complication, not stated as uncontrolled 03/11/2006 DX:Type II or unspecified ty pe diabetes mellitus without mention of complication, not stated as uncontrolled Family History Medical History Relation Name Comments Colon cancer Father 62 Breast cancer Maternal Grandmother Breast cancer Sister 1 Relation Name Status Comments Brother 1 Alive Brother 2 Alive Brother 3 Alive Brother 4 Alive Brother 5 Alive Brother 6 CAD Daughter 1 Alive Daughter 2 Alive Father colon problems Maternal Grandmother Mother Alive DM,HTN Sister 1 Alive DM Sister 2 Alive Sister 3 Alive Sister 4 Alive Sister 5 Alive Sister 6 Alive Son 1 Alive Son 2 Alive Social History Tobacco Use Types Packs/Day Years Used Date Smoking Tobacco: Former Cigarettes Q uit: 06/24/1990 Smokeless Tobacco: Former Alcohol Use Standard Drinks/Week Comments No 0 (1 standard drink = 0.6 oz pur e alcohol) Comments Unknown Sex and Gender Information Value Date Recorded Sex Assigned at Not on file Legal Sex Female 8:53 AM EST Gender Identity Not on file Sexual Orientation Not on file Obstetrics History Plan of Treatment Health Maintenance Due Date Last Done Comments Breast Cancer Screening 1974 Diabetes: Annual Foot Exam 1984 Diabetes: Annual Retina Eye Exam 1984 Hepatitis B Vaccines (1 of 3 - 19+ 3-dose series) 1993 Cervical Cancer Screening: Pap Smear 05/16/2013 05/16/2010 Pneumococcal Vaccine: 50+ Years (2 of 2 - PCV) 11/03/2014 11/03/2013 Pneumococcal Vaccine: Pediatrics (0 to 5 Years) and At-Risk Patients (6 to 64 Years) (2 of 2 - PCV) 11/03/2014 11/03/2013 DTaP,Tdap,and Td Vaccines (2 - Td or Tdap) 10/10/2016 10/10/2006 Diabetes: Annual GFR (Glomerular Filtration Rate) 01/20/2017 01/21/2016 COVID-19 Vaccine ( season) 2024 Zoster Vaccines (1 of 2) 2024 Cholesterol Screening (Lipid Panel) 05/27/2024 01/21/2016 Colorectal Cancer Screening: Colonoscopy 05/27/2024 03/06/2010 Depression Screening 05/27/2024 Diabetes: Annual Urine Albumin-Creatinine Ratio (uACR) 05/27/2024 01/21/2016 Diabetes: Blood Sugar Control Test (HGBA1C) 05/27/2024 01/21/2016 Hypertension/CHF/CAD Annual BMP Blood Test 05/27/2024 01/21/2016 Social Influencers of Health Screening 05/27/2024 Influenza Vaccine (Season Ended) 2025 07/26/2015, 05/31/2014, 04/08/2013, Additional history exists HIV Screening Completed 09/20/2006 Hepatitis C Screening Completed 04/15/2012 HIB Vaccines Aged Out No longer eligi ble based on patient's age to complete this topic HPV Vaccines Aged Out No longer eligi ble based on patient's age to complete this topic Hepatitis A Vaccines Aged Out No long er eligible based on patient's age to complete this topic IPV Vaccines Aged Out No longer eligi ble based on patient's age to complete this topic MMR Vaccines Aged Out No longer eligi ble based on patient's age to complete this topic Meningococcal ACWY Vaccine Aged Out N o longer eligible based on patient's age to complete this topic Meningococcal B Vacine Aged Out No lo nger eligible based on patient's age to complete this topic RSV Immunization Patients Under 20 months Aged Out No longer eligible based on patient's age to complete this topic Varicella Vaccines Aged Out No longer eligible based on patient's age to complete this topic Procedures Procedure Name Priority Date/Time Associated Diagnosis Comments URINE ALBUMIN CREATININE RATIO Routine 01/21/2016 ANNUAL BMP BLOOD TEST Routine 01/21/2016 HEMOGLOBIN A1C Routine 01/21/2016 LIPID PANEL Routine 01/21/2016 HEPATITIS C SCREENING Routine 04/15/2012 PAP SMEAR Routine 05/16/2010 COLONOSCOPY Routine 03/06/2010 HIV SCREENING Routine 09/20/2006 from Last 3 Months or Most Recently Relevant to Health Maintenance Results * Urine Albumin Creatinine Ratio (01/21/2016) Pathologist [facility] Urine Albumin Creatinine Ratio abstracted Historical Provider HEALTH MAINTENANCE Final Result * Annual BMP Blood Test (01/21/2016) Pathologist [facility] Annual BMP Blood Test abstracted Historical Provider HEALTH MAINTENANCE Final Result * (ABNORMAL) Hemoglobin A1c (01/21/2016) Pathologist [facility] Hemoglobin A1C 8.6(A) 4.0 - 6.0 % Blood Venous blood specimen / Unknown [facility] Provider LAB BLOOD ORDERABLES Nhung l Result * (ABNORMAL) Lipid panel (01/21/2016) [facility] LDL/HDL Ratio 4 0 - 4 Triglycerides 227(A) 0 - 150 mg/dL Cholesterol 194 0 - 200 mg/dL HDL 46 >=40 mg/dL LDL Cholesterol 103(A) 0 - 100 mg/dL Blood Venous blood specimen / Unknown [facility] Provider LAB BLOOD ORDERABLES Nhung l Result * Hepatitis C Screening (04/15/2012) [facility] Hepatitis C Screening abstracted [facility] Provider HEALTH MAINTENANCE Final Result * Pap Smear (05/16/2010) [facility] Pap smear abstracted, no interpretation Result [facility] Provider HEALTH MAINTENANCE Final Result * Colonoscopy (03/06/2010) [facility] Colonoscopy abstracted, no interpretation Anatomical Region Laterality Modality Other Result [facility] Provider HEALTH MAINTENANCE Final Result * HIV Screening (09/20/2006) [facility] HIV Screening abstracted [facility] Provider HEALTH MAINTENANCE Final Result from Last 3 Months or Most Recently Relevant to Health Maintenance Insurance [address] [place] [address] MEDICAID - [place] Care Teams Rn Surgery Icu Relationship Specialty Start Date End Date Brandon Lea MD [address] [facility] [address] [place] [address] [facility] - General 11/23/22
--- OUTSIDE RECORDS SUMMARY | 2024-09-25 15:48 | XMS_ITS | Encounter Summary ---
Author Organization [employer] Address [address] [address] [facility] [address] [place] [address] Care Team Providers Care Cattle Trader Name Role Phone Rosemary Santiago DEPUTY BUILDING GUARD Primary Care Provider [phone] Encounter Details Date Type Department Care Team (Latest Contact Info) Description 09/25/2024 Travel Social History Tobacco Use Types Packs/Day Years [...] Description 09/30/2024 9:00 AM EDT Office Visit [facility] CH[facility] ADULT DENTAL [address] [place] [address] Giorgio Álvarez 10/21/2024 10:00 AM EDT Office Visit [facility] OPTOMETRY [address] [place] [address] Mariano, Ashley, OD [address] [place] [address] documented as of this encounter Visit Diagnoses Not on filedocumented in this encounter Additional Health Concerns Assessment Noted Time PHQ-9 Depression Total Score: 4 09/27/19 24 10:48 AM EDT documented as of this encounter Care Teams Cattle Trader Relationship Specialty Start Date End Date Rosemary Santiago FNP [address] [place] [address] PCP - General Family Medicine 02/19/23 documented as of this encounter
--- OUTSIDE RECORDS SUMMARY | 2024-09-25 15:49 | XMS_ITS | Encounter Summary ---
Author Organization [employer] Address [address] [facility] [address]t [place] [address] Care Team Providers Care Battery Builder Name Role Phone Rosemary Santiago Primary Care Provider [phone] Reason for Visit * Reason Onset Date Comments Chart Prep 09/22/2024 Encounter Details Date Type Department Care Team ([facility] Contact Info) Description 09/22/2024 Telephone [facility] CH[facility] MED & PEDS [address] [place], [place] [phone] Rosemary Santiago FNP [address] [place] [address] Chart Prep Social History Tobacco Use Types Packs/Day Years [...] encounter Miscellaneous Notes * Telephone Encounter - Wilber Rao MA - 09/22/2024 1:27 PM EDT Chart Prep Labs: done Images: not applicable Vaccines due: yes Referrals: appointment pending Screenings: Urine Protein, Lipid Panel Overdue care gaps: A1c, Glucose, SBIRT, and PISQ documented in this encounter Plan of Treatment Upcoming Encounters Date Type Department Care Team (Late st Contact Info) Description 09/30/2024 9:00 AM EDT Office Visit [facility] CHC ADULT DENTAL [address] [place] [address] Giorgio Álvarez 10/21/2024 10:00 AM EDT Office Visit [facility] OPTOMETRY [address] [place] [address] Ashley Quintana, OD [address] [facility] [place] [address] documented as of this encounter Visit Diagnoses Not on filedocumented in this encounter Additional Health Concerns Assessment Noted Time PHQ-9 Depression Total Score: 4 09/27/19 24 10:48 AM EDT documented as of this encounter Care Teams Battery Builder Relationship Specialty Start Date End Date Rosemary Santiago FNP [address] [place] [address] PCP - General Family Medicine 02/19/23 documented as of this encounter
--- OUTSIDE RECORDS SUMMARY | 2024-09-25 15:49 | XMS_ITS | Encounter Summary ---
Author Organization [employer] Address 75 [facility] 7t [place] [address] Care Team Providers Care Supplies Packer Name Role Phone JeanineRosemary banks TRAINING INSTRUCTOR Primary Care Provider [phone] Reason for Referral * Consultation (Routine) - Authorized Specialty Diagnoses / Procedures Referred By Contac t Referred To Contact Pharmacy Diagnoses Type 2 diabetes mellitus with hyperglycemia, without long-term current use of insulin (CMS/HCC) Clara Holloway MD [address] [place] [place] [id number] Phone: tel: fax: Referral ID Status Reason Start Date Expiration Date Visits Requested Visits Authorized [id number] Authorized Consult and Treat 07/15/2024 07/15/2025 6 6 Encounter Details Date Type Department Care Team ([facility] st Contact Info) Description 07/15/2024 Orders Only [facility] MEDICINE [address] [place] [address] [phone] Clara Holloway MD [address] [place] [address] [phone] Type 2 diabetes mellitus with hyperglycemia, without long-term current use of insulin (CMS/HCC) (Primary Dx) Social History Tobacco Use Types Packs/Day Years [...] Description 09/30/2024 9:00 AM EDT Office Visit [facility] CHC ADULT DENTAL [address] [place] [address] Giorgio Álvarez 10/21/2024 10:00 AM EDT Office Visit [facility] OPTOMETRY [address] [place] [address] Ashley Quintana, OD [address] [place] [address] Scheduled Referrals Name Type Priority Associated Diagnoses Orde r Schedule Referral to Pharmacy CDTM Outpatient Referral Routine Type 2 diabetes mellitus with hyperglycemia, without long-term current use of insulin ([facility]) Ordered: 07/15/2024 documented as of this encounter Visit Diagnoses Diagnosis Type 2 diabetes mellitus with hyperglycemia, without long-term current use of insulin ([facility])- Primary documented in this encounter Additional Health Concerns Assessment Noted Time PHQ-9 Depression Total Score: 4 09/27/19 24 10:48 AM EDT documented as of this encounter Care Teams Supplies Packer Relationship Specialty Start Date End Date Rosemary Santiago FNP [address] [place] [address] PCP - General Family Medicine 02/19/23 documented as of this encounter
--- OUTSIDE RECORDS SUMMARY | 2024-09-25 15:49 | XMS_ITS | Encounter Summary ---
Author Organization [employer] Address 75 [facility] 7t [place] [address] Care Team Providers Care Identity Management Developer Name Role Phone Rosemary Santiago SLOT MACHINE DEPARTMENT FLOORPERSON Primary Care Provider Encounter Details Date Type Department Care Team ([facility] st Contact Info) Description 09/23/2024 Population Health Risk Score [facility] () Department [address] [facility] [address] [place] [address] Provider, Population Health Generic Social History Tobacco Use Types Packs/Day Years [...] 9:00 AM EDT Office Visit [facility] CHC ADULT DENTAL [address] [place] [address] Giorgio Álvarez 10/21/2024 10:00 AM EDT Office Visit [facility] OPTOMETRY [address] [place] [address] Mariano, Ashley, OD [address] [place] [address] documented as of this encounter Visit Diagnoses Not on filedocumented in this encounter Additional Health Concerns Assessment Noted Time PHQ-9 Depression Total Score: 4 09/27/19 24 10:48 AM EDT documented as of this encounter Care Teams Identity Management Developer Relationship Specialty Start Date End Date Rosemary Santiago FNP [address] [place] [address] PCP - General Family Medicine 02/19/23 documented as of this encounter
--- OUTSIDE RECORDS SUMMARY | 2024-09-25 15:49 | XMS_ITS | Encounter Summary ---
Author Organization [employer] Address [address] [place] [address] 7 [place] [address] Care Team Providers Care Seasoning Mixer Name Role Phone Jeaninedarren Rosemary CHINESE MEDICINE PRACTITIONER Primary Care Provider [phone] Reason for Referral * Consultation (Routine) - Authorized Specialty Diagnoses / Procedures Referred By Contac t Referred To Contact Pharmacy Diagnoses Type 2 diabetes mellitus with hyperglycemia, without long-term current use of insulin (CMS/HCC) Emperatriz Álvarez MD [address] [place] [address] Phone: tel: fax: Referral ID Status Reason Start Date Expiration Date Visits Requested Visits Authorized [id number] Authorized Consult and Treat 07/24/2024 07/24/2025 6 6 Encounter Details Date Type Department Care Team ([facility] st Contact Info) Description 07/24/2024 Orders Only [facility] CHC MED & PEDS [address] [place] [address] Emperatriz Álvarez MD [address] [place] [address] Type 2 diabetes mellitus with hyperglycemia, without [...] Description 09/30/2024 9:00 AM EDT Office Visit [facility] CHC ADULT DENTAL [address] [place] [address] Giorgio Álvarez 10/21/2024 10:00 AM EDT Office Visit [facility] OPTOMETRY [address] [place] [address] Mariano, Ashley, OD [address] [place] [address] Scheduled Referrals Name Type Priority Associated Diagnoses Orde r Schedule Referral to Pharmacy CDTM Outpatient Referral Routine Type 2 diabetes mellitus with hyperglycemia, without long-term current use of insulin ([facility]) Ordered: 07/24/2024 documented as of this encounter Visit Diagnoses Diagnosis Type 2 diabetes mellitus with hyperglycemia, without long-term current use of insulin ([facility])- Primary documented in this encounter Additional Health Concerns Assessment Noted Time PHQ-9 Depression Total Score: 4 09/27/19 24 10:48 AM EDT documented as of this encounter Care Teams Seasoning Mixer Relationship Specialty Start Date End Date Rosemary Santiago FNP [address] [place] [address] PCP - General Family Medicine 02/19/23 documented as of this encounter
[2024-09-26 04:34] LABS: CT PCR NOT DETECTED (Not Detect.); NG PCR NOT DETECTED (Not Detect.)
== END 2024-09-25 14:03 | disposition home or self-care (01) ==
LOC: HO.CHCLNP 14:02
PROVIDERS: Visit Provider Registered Nurse
DX: Z00.00 Encounter for general adult medical examination without abnormal findings (principal)
CPT/HCPCS: 87491; 87591

== ENCOUNTER 2024-11-13 17:38 | Outpatient (REF) | payer MEDICAID, SELFPAY ==
--- OUTSIDE RECORDS SUMMARY | 2024-11-13 17:40 | XMS_ITS | Encounter Summary ---
Author Organization [employer] Address 75 [facility] 7t [place] [address] Care Team Providers Care County Manager Name Role Phone Rosemary Santiago Primary Care Provider Ted Hood Unavailable Reason for Visit * Reason Onset Date Comments Nurse Triage 06/23/2024 Encounter Details Date Type Department Care Team ([facility] st Contact Info) Description 06/23/2024 Telephone [facility] MEDICINE [address] [place] [address] Rosemary Santiago FNP [address] [place] [address] Nurse Triage Social History Tobacco Use Types [...] Reason: Caller denied all higher acuity questions Greenlandic Speaker (accepted Shellfish Bed Worker) Please contact pt at [phone]. documented in this encounter Plan of Treatment Upcoming Encounters Date Type Department Care Team ([facility] st Contact Info) Description 01/01/2025 10:00 AM EDT Office Visit [facility] MED & PEDS [address] [place] [address] Rosemary Santiago, GEMA [address] [place] [address] 03/31/2025 10:00 AM EDT Office Visit [facility] ADULT DENTAL [address] [place] [address] Giorgio Álvarez documented as of this encounter Visit Diagnoses Not on filedocumented in this encounter Additional Health Concerns Assessment Noted Time PHQ-9 Depression Total Score: 4 09/27/19 24 10:48 AM EDT documented as of this encounter Care Teams County Manager Relationship Specialty Start Date End Date Rosemary Santiago FNP [address] [place] [address] PCP - General Family Medicine 02/19/23 Ted Hood Community Health Worker 01/23/24 documented as of this encounter
[2024-11-13 17:49] LABS: Appearance Urine Clear; Color Urine Yellow; Glucose Urine UA >=1000 mg/dL (Negative); Leukocyte Esterase Urine Negative (Negative); Nitrite Urine Positive (Negative); Specific Gravity - Urine >= 1.030 (1.005-1.025); UMIC TRIGGER UACC YES; Urine Blood Negative (Negative); Urine Ketones 15 mg/dL (Negative); Urine Protein Negative (Neg-Trace)
[2024-11-13 18:09] LABS: Bacteria Urine 4+ (None Seen); Hyaline Casts Urine 0-2 /LPF (0-2); RBC Urine 0-2 /HPF (0-2); UACC Culture Trigger YES
[2024-11-14 09:10] LABS: Bacterial Vaginosis PCR NEGATIVE (Negative); Candida Group PCR DETECTED (Not Detect); Candida glab krusei PCR NOT DETECTED (Not Detect); Trichomonas vaginalis PCR NOT DETECTED (Not Detect)
[2024-11-14 09:42] LABS: CT PCR NOT DETECTED (Not Detect.); NG PCR NOT DETECTED (Not Detect.)
== END 2024-11-13 17:39 | disposition home or self-care (01) ==
LOC: HO.CHCLNP 17:38
PROVIDERS: Visit Provider Registered Nurse
DX: N89.8 Other specified noninflammatory disorders of vagina (principal); N30.90 Cystitis, unspecified without hematuria
CPT/HCPCS: 81001; 81515; 87086; 87088; 87186; 87491; 87591

== ENCOUNTER 2024-12-14 10:00 | Outpatient (REF) | payer MEDICAID, SELFPAY ==
--- NOTE | ~2024-12-14 | XR_ITS ---
EXAMINATION: XR THORACIC SPINE CLINICAL INFORMATION: PAIN, fell in September 2024, pain since then is worse COMPARISON: None available. TECHNIQUE: AP and lateral views of the thoracic spine were obtained. FINDINGS: Cervicothoracic junction is obscured by overlapping bony and soft tissues. Vertebral body height and alignment is preserved. There is mild disc space narrowing and small marginal osteophytes in the mid to upper thoracic spine. 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 Electronically signed by: Noah Gomez MD 12/14/2024 10:39 AM EDT
--- OUTSIDE RECORDS SUMMARY | 2024-12-14 11:04 | XMS_ITS | Encounter Summary ---
Author Organization [employer] Address 75 [facility] 7t [place] [address] Care Team Providers Care Eyelet Cutter Name Role Phone Rosemary Santiago Primary Care Provider [phone] Ted Hood Unavailable Reason for Visit * Reason Onset Date Comments Nurse Triage 06/23/2024 Encounter Details Date Type Department Care Team ([facility] st Contact Info) Description 06/23/2024 Telephone [facility] MEDICINE [address] [place] [address] Rosemary Santiago FNP [address] [place] [address] Nurse Triage Social History Tobacco Use Types [...] Reason: Caller denied all higher acuity questions Tunisian Speaker (accepted Homicide Squad Lieutenant) Please contact pt at [phone]. documented in this encounter Plan of Treatment Upcoming Encounters Date Type Department Care Team ([facility] st Contact Info) Description 01/01/2025 10:00 AM EDT Office Visit [facility] MED & PEDS [address] [place] [address] Rosemary Santiago, GEMA [address] [place] [address] 03/31/2025 10:00 AM EDT Office Visit [facility] ADULT DENTAL [address] [place] [address] Giorgio Álvarez documented as of this encounter Visit Diagnoses Not on filedocumented in this encounter Additional Health Concerns Assessment Noted Time PHQ-9 Depression Total Score: 4 09/27/19 24 10:48 AM EDT documented as of this encounter Care Teams Eyelet Cutter Relationship Specialty Start Date End Date Rosemary Santiago FNP [address] [place] [address] PCP - General Family Medicine 02/19/23 Ted Hood Community Health Worker 01/23/24 documented as of this encounter
== END 2024-12-14 10:01 | disposition home or self-care (01) ==
LOC: HO.HHCX 10:00
PROVIDERS: PCP Registered Nurse; Visit Provider Registered Nurse
DX: M54.6 Pain in thoracic spine (principal)
CPT/HCPCS: 72070

== ENCOUNTER → 2024-12-14 10:09 | Outpatient (BNV) | payer MEDICAID, SELFPAY | PROVIDERS: PCP Registered Nurse; Visit Provider Radiology Diagnostic Radiology | DX: M54.6 Pain in thoracic spine (principal); W19.XXXD Unspecified fall, subsequent encounter | CPT/HCPCS: 72070 ==

== ENCOUNTER 2025-03-12 12:04 | Outpatient (REF) | payer MEDICAID, SELFPAY ==
--- OUTSIDE RECORDS SUMMARY | 2025-03-12 10:00 | XMS_ITS | Encounter Summary ---
Author Organization [employer] Address 75 [facility] 7t [place] [address] Care Team Providers Care Radiologic Technology Teacher Name Role Phone Rosemary Santiago Primary Care Provider [phone] Reason for Referral * Consultation (Routine) - Pending Review Specialty Diagnoses / Procedures Referred By Zenobia biswas Referred To Contact Podiatry Diagnoses Type 2 diabetes mellitus with hyperglycemia, without long-term current use of insulin (CMS/HCC) Left foot pain Rosemary Santiago FNP [address] [place] [address] Phone: tel: fax: [facility] [address] [facility] [address]) [place], [place] Phone: tel: fax: Referral ID Status Reason Start Date Expiration Date Visits Requested Visits Authorized [id number] Pending Review Specialty Services Required 03/12/2025 03/12/2026 1 1 * Consultation (Routine) - Authorized Specialty Diagnoses / Procedures Referred By Zenobia biswas Referred To Contact Pharmacy Diagnoses Type 2 diabetes mellitus with hyperglycemia, without long-term current use of insulin (CMS/HCC) Rosemary Santiago FNP [address] [place] [address] Phone: tel: fax: Referral ID Status Reason Start Date Expiration Date Visits Requested Visits Authorized [id number] Authorized Consult and Treat 03/12/2025 03/12/2026 6 6 Encounter Details Date Type Department Care Team (Late st Contact Info) Description 03/12/2025 10:00 AM EDT Office Visit [facility] CHC MED & PEDS [address] [place] [address] Rosemary Santiago FNP [address] [place] [address] Type 2 diabetes mellitus with hyperglycemia, without long-term current use of insulin (CMS/HCC) (Primary Dx); Dietary counseling; Exercise counseling; Left foot pain; Urinary symptom or sign Social History Tobacco Use Types Packs/Day Years Used Date Smoking Tobacco: Never Passive Smoke Exposure: Never Smokeless Tobacco: Never Alcohol Use Standard Drinks/Week Comments Yes 0 (1 standard drink = 0.6 oz pur e alcohol) ghazala Depression Answer Date Recorded Patient Health Questionnaire-9 Score 7 11/13/2024 Patient Health Questionnaire-9 Score 7 11/13/2024 Last PHQ-9: Questionnaire Data Not on file 0 11/13/2024 Housing Stability Answer Date Recorded What is [...] Date Recorded Patient Health Questionnaire-2 Score 1 11/13/2024 Internet Access Answer Date Recorded Internet Access [...] Sign Reading Time Taken Comments Blood Pressure 129/82 03/12/2025 10:22 AM EDT Pulse 92 03/12/2025 10:22 AM EDT Temperature 36.3 C (97.3 F) 03/12/2025 10:22 AM EDT Respiratory Rate 20 03/12/2025 10:22 AM EDT Oxygen Saturation 96% 03/12/2025 10:22 AM EDT Inhaled Oxygen Concentration - - Weight 78 kg (172 lb) 03/12/2025 10:22 AM EDT Height 162.6 cm (5' 4 ) 03/12/2025 10:22 AM EDT Body Mass Index 29.52 03/12/2025 10:22 AM EDT documented in this encounter Plan of Treatment Upcoming Encounters Date Type Department Care Team (Late st Contact Info) Description 03/31/2025 10:15 AM EDT Office Visit [facility] ADULT DENTAL [address] [place] [address] Giorgio Álvarez Scheduled Orders Name Type Priority Associated Diagnoses Orde r Schedule Respiratory Viral Panel PCR Lab Routine Urinary symptom or sign Expected: 03/12/2025 (Approximate), Expires: 03/12/2026 Scheduled Referrals Name Type Priority Associated Diagnoses Orde r Schedule Referral to Pharmacy CDTM Outpatient Referral Routine Type 2 diabetes mellitus with hyperglycemia, without long-term current use of insulin ([facility]) Ordered: 03/12/2025 Referral to Podiatry Outpatient Referral Routine Type 2 diabetes mellitus with hyperglycemia, without long-term current use of insulin ([facility]) Left foot pain Expected: 03/12/2025 (Approximate), Expires: 03/12/2026 documented as of this encounter Procedures Procedure Name Priority Date/Time Associated Diagnosis Comments POCT GLUCOSE Routine 03/12/2025 11:19 AM EDT Type 2 diabetes mellitus with hyperglycemia, without long-term current use of insulin ([facility]) POCT GLYCATED HEMOGLOBIN, TOTAL Routine 03/12/2025 11:18 AM EDT Type 2 diabetes mellitus with hyperglycemia, without long-term current use of insulin ([facility]) documented in this encounter Results * (ABNORMAL) POCT Glucose (03/12/2025 11:19 AM EDT) Glucose Blood, POC 373(A) 60 - 200 mg/dL QC [employer] Lot # [id number] Lot# Expiration Date [id number] Comment:random Blood Capillary blood specimen / Unknown 03/12/2025 11:19 AM EDT us Rosemary RIBEIRO POINT OF CARE TEST ENTER/EDIT ORDERABLES Final Result * (ABNORMAL) POCT Hgb A1c (03/12/2025 11:18 AM EDT) Hemoglobin A1C 12.5(A) 4.0 - 5.7 % QC [employer] Lot # [id number] Lot# Expiration Date ,[id number] Blood 03/12/2025 11:1 8 AM EDT us Rosemary RIBEIRO POINT OF CARE TEST ENTER/EDIT ORDERABLES Final Result documented in this encounter Visit Diagnoses Diagnosis Type 2 diabetes mellitus with hyperglycemia, without long-term current use of insulin ([facility])- Primary Dietary counseling Dietary surveillance and counseling Exercise counseling Left foot pain Pain in soft tissues of limb Urinary symptom or sign documented in this encounter Additional Health Concerns Assessment Noted Time PHQ-9 Depression Total Score: 7 11/14/19 25 2:15 PM EDT documented as of this encounter Care Teams Radiologic Technology Teacher Relationship Specialty Start Date End Date Rosemary Santiago FNP [address] [place] [address] PCP - General Family Medicine 02/19/23 documented as of this encounter
--- OUTSIDE RECORDS SUMMARY | 2025-03-12 12:24 | XMS_ITS | Encounter Summary ---
Author Organization [employer] Address 75 [facility] 7t [place] [address] Care Team Providers Care It Service Delivery Manager Name Role Phone Rosemary Santiago Primary Care Provider [phone] Ted Hood Unavailable Reason for Visit * Reason Onset Date Comments Nurse Triage 06/23/2024 Encounter Details Date Type Department Care Team ([facility] st Contact Info) Description 06/23/2024 Telephone [facility] MEDICINE [address] [place] [address] Rosemary Santiago FNP [address] [place] [address] Nurse Triage Social History Tobacco Use Types [...] Reason: Caller denied all higher acuity questions Finnish Speaker (accepted Turkey Pinner) Please contact pt at [phone]. documented in this encounter Plan of Treatment Upcoming Encounters Date Type Department Care Team (Late st Contact Info) Description 03/31/2025 10:15 AM EDT Office Visit [facility] ADULT DENTAL [address] [place] [address] Giorgio Álvarez documented as of this encounter Visit Diagnoses Not on filedocumented in this encounter Additional Health Concerns Assessment Noted Time PHQ-9 Depression Total Score: 4 09/27/19 24 10:48 AM EDT documented as of this encounter Care Teams It Service Delivery Manager Relationship Specialty Start Date End Date Rosemary Santiago FNP [address] [place] [address] PCP - General Family Medicine 02/19/23 Ted Hood Community Health Worker 01/23/24 documented as of this encounter
--- OUTSIDE RECORDS SUMMARY | 2025-03-12 12:24 | XMS_ITS | Encounter Summary ---
Author Organization [employer] Address 75 [facility] 7t [place] [address] Care Team Providers Care Squeak Rattle And Leak Repairer Name Role Phone Rosemary Santiago Primary Care Provider [phone] Reason for Visit * Reason Onset Date Comments Nurse Triage 09/28/2024 Encounter Details Date Type Department Care Team ([facility] st Contact Info) Description 09/28/2024 Telephone [facility] MEDICINE [address] [place] [address] Rosemary Santiago FNP [address] [place] [address] Nurse Triage Social History Tobacco Use Types [...] encounter Miscellaneous Notes * Telephone Encounter - Rashida Kim RN - 09/28/2024 4:27 PM EDT Triage call Pt reports while shopping at the [employer] yesterday (09/28/24) Pt fell over somethingon the floor at a [employer]. Pt fell backward but, didn't hit head. Pt reports husbandand daughter helped Pt up off the floor. Pt reports pain and bruising especially on back of right leg with some pain right side of back and right arm. Pt is able to ambulate using a cane and is taking tylenol for pain with some relief. Pt reports bruising especially back of right leg but, no bumps noted. Pt didn't apply ice to areas but, took a hot shower instead. [facility]. Pt requests to come in the morning. Hours given open 830am -400pm. Pt agrees with disposition and insurance is verified as active. Protocol Used: Falls and Falling (Adult) Protocol-Based Disposition: See in Office or Video Visit within 3 Days Positive Triage Question: * Patient wants to be seen * All higher-acuity triage questions were negative Care Advice Discussed: * Reassurance and Education - Direct Blow (Minor Bruise, Contusion) * Use a Cold Pack for Pain, Swelling, or Bruising * Use Heat on Area After 48 Hours * Reasons To Call Back - Bruise becomes over 2 inches (5 cm) wide - You become worse. * Telephone Encounter - Wilton Campos - 09/28/2024 3:56 PM EDT Symptoms: Arm Pain - Not From Injury, Leg Pain - Not From Injury, Back Pain - Not From Injury Outcome: Schedule an urgent appointment (within 1 hour) or talk to a nurse or provider soon Reason: Can't use the arm normally The caller accepted this outcome. Contact pt at [phone] documented in this encounter Plan of Treatment Upcoming Encounters Date Type Department Care Team (Late st Contact Info) Description 03/31/2025 10:15 AM EDT Office Visit [facility] ADULT DENTAL [address] [place] [address] Giorgio Álvarez documented as of this encounter Visit Diagnoses Not on filedocumented in this encounter Additional Health Concerns Assessment Noted Time PHQ-9 Depression Total Score: 4 09/27/19 24 10:48 AM EDT documented as of this encounter Care Teams Squeak Rattle And Leak Repairer Relationship Specialty Start Date End Date Rosemary Santiago FNP [address] [place] [address] PCP - General Family Medicine 02/19/23 documented as of this encounter
--- OUTSIDE RECORDS SUMMARY | 2025-03-12 12:24 | XMS_ITS | Encounter Summary ---
Author Organization [employer] Address 75 [facility] 7t [place] [address] Care Team Providers Care Patrol Inspector Name Role Phone Rosemary Santiago FUNDER Primary Care Provider Encounter Details Date Type Department Care Team (Latest Contact Info) Description 03/12/2025 Travel Social History Tobacco Use Types Packs/Day [...] Description 03/31/2025 10:15 AM EDT Office Visit [facility] CHC ADULT DENTAL [address] [place] [address] Giorgio Álvarez documented as of this encounter Visit Diagnoses Not on filedocumented in this encounter Additional Health Concerns Assessment Noted Time PHQ-9 Depression Total Score: 7 11/14/19 25 2:15 PM EDT documented as of this encounter Care Teams Patrol Inspector Relationship Specialty Start Date End Date Rosemary Santiago FNP [address] [place] [address] PCP - General Family Medicine 02/19/23 documented as of this encounter
--- OUTSIDE RECORDS SUMMARY | 2025-03-12 12:24 | XMS_ITS | Clinical Summary ---
Author Organization [facility] Address [address] [place] [address] Care Team Providers Care Ticket Chopper Assembler Name Role Phone Unavailable Primary Care Provider [...] complication, without long-term current use of insulin ([facility]) USE TO TEST BLOOD SUGARS DAILY ACCORDING [...] Center 05/11/16 Cirrhosis of liver. follows at [facility], normal liver function. suspect NAFLD History of pelvic mass: alida gn per pt, sp oophorectomy and hysterectomy also due to benign reason Overview (04/11/2016): Dr Marti Uncontrolled type 2 diabetes mellitus without complication, without long-term current use of insulin Fibromyalgia Low back pain Overview (08/08/2016): 06/10/[address] Koenig at [facility]. Dx: neck sprain, thoracic sprain, lumbar sprain. Advised motrin 2000 mg 1-2 tabs BID, tizanidine 2 mg 1-2 tabs qHS, PT, exercises, f/u 3 weeks Benign essential HTN Immunizations Immunization Administration Dates Next Due HEP A-HEP B ([place]) 06/13/2017 Family History Medical History Relation Name [...] 76 08/05/2017 9:23 AM EST Temperature 37.2 C (98.9 F) 08/05/2017 9:23 AM EST Respiratory Rate 19 08/05/2017 9:23 AM EST Oxygen Saturation 99% 06/13/2017 2:57 PM EST Inhaled Oxygen Concentration - - Weight 83.4 kg (183 lb 12.8 oz) 08/05/2017 9:23 AM EST Height 175.3 cm (5' 9 ) 08/05/2017 9:23 AM EST Body Mass Index 27.14 08/05/2017 9:23 AM EST Plan of Treatment Not on file Insurance [facility]
--- OUTSIDE RECORDS SUMMARY | 2025-03-12 12:24 | XMS_ITS | Clinical Summary ---
Author Organization [address] [facility] Address [address] [place] [address] Phone Care Team Providers Care Sales Contract Administrator Name Role Phone Brandon Lea MD Primary Care Provider [phone] Allergies Active Allergy Reactions Criticality Noted Date [...] HTN (hypertension) 08/19/2009 Type 2 diabetes mellitus ([facility] V24, [facility] V 28) 06/21/2009 Overview (05/28/2024): DM (diabetes mellitus), type [...] PROCEDURE: HISTORICAL TUBAL LIGATION ESOPHAGOGASTRODUODENOSCOPY 03/06/2010 PROCEDURE: MI EGD TRANSORAL BIOPSY SINGLE/MULTIPLE; COMMENT: Normal esophagus, mild gastritis-biopsy:chronic gastritis(Hpylori+), nl duodenum-biopsy:Nl COLONOSCOPY W/ BIOPSIES 03/06/2010 PROCEDURE: MI COLONOSCOPY STOMA W/BIOPSY SINGLE/MULTIPLE; COMMENT: Up to [...] Annual GFR (Glomerular Filtration Rate) 01/20/2017 01/21/2016 Zoster Vaccines (1 of 2) 2024 Cholesterol Screening (Lipid Panel) 05/27/2024 01/21/2016 Colorectal Cancer Screening: Colonoscopy 05/27/2024 03/06/2010 Diabetes: Annual Urine Albumin-Creatinine Ratio (uACR) 05/27/2024 01/21/2016 Diabetes: Blood Sugar Control Test (HGBA1C) 05/27/2024 01/21/2016 Hypertension/CHF/CAD Annual BMP Blood Test 05/27/2024 01/21/2016 Social Influencers of Health Screening 05/27/2024 Depression Screening 06/24/2024 COVID-19 Vaccine ( season) 2025 Influenza Vaccine (#1) 2025 6, 05/31/2014, 04/08/2013, Additional history exists RSV Immunization Adult Patients (1 - 1-dose 75+ series) 2049 HIV Screening Completed 09/20/2006 Hepatitis C Screening [...] age to complete this topic Meningococcal B Vaccine Aged Out No l onger eligible based on patient's age to complete [...] * Urine Albumin Creatinine Ratio (01/21/2016) Pathologist [facility] Urine Albumin Creatinine Ratio abstracted Historical Provider HEALTH MAINTENANCE Final Result * Annual BMP Blood Test (01/21/2016) Pathologist [facility] Annual BMP Blood Test abstracted [facility] [place]ALTH MAINTENANCE Final Result * (ABNORMAL) Hemoglobin A1c (01/21/2016) [facility] Hemoglobin A1C 8.6(A) 4.0 - 6.0 % Blood Venous blood specimen / Unknown [facility] [place] LAB BLOOD ORDERABLES Nhung l Result * (ABNORMAL) Lipid panel (01/21/2016) Pathologist [facility] LDL/HDL Ratio 4 0 - 4 Triglycerides 227(A) 0 - 150 mg/dL Cholesterol 194 0 - 200 mg/dL HDL 46 >=40 mg/dL LDL Cholesterol 103(A) 0 - 100 mg/dL Blood Venous blood specimen / Unknown [facility] [place] LAB BLOOD ORDERABLES Nhung l Result * Hepatitis C Screening (04/15/2012) [facility] Hepatitis C Screening abstracted Result [facility] Provider HEALTH MAINTENANCE Final Result * Pap Smear (05/16/2010) [facility] Pap smear abstracted, no interpretation Result [facility] Provider HEALTH MAINTENANCE Final Result * Colonoscopy (03/06/2010) [facility] Colonoscopy abstracted, no interpretation Anatomical Region Laterality Modality Other Result [facility] Provider HEALTH MAINTENANCE Final Result * HIV Screening (09/20/2006) [facility] HIV Screening abstracted [facility] [place] HEALTH MAINTENANCE Final Result from Last 3 Months or Most Recently Relevant to Health Maintenance Insurance [address] [place] [address] [place]ICA[place] Care Teams Sales Contract Administrator Relationship Specialty Start Date End Date Brandon Lea MD [address] [facility] [address] [place] [address] [phone] (work) PCP - General 11/23/22
--- OUTSIDE RECORDS SUMMARY | 2025-03-12 12:24 | XMS_ITS | Encounter Summary ---
Author Organization [employer] Address [address] [facility] [address] [place] [address] Care Team Providers Care Tilting Saw Operator Name Role Phone Karen Burns MD Primary Care Provider + Rosemary Santiago Primary Care Provider Ted Hood Unavailable Reason for Visit * Reason Onset Date Comments Appointment Request 10/23/2022 Encounter Details Date Type Department Care Team ([facility] st Contact Info) Description 10/23/2022 Telephone [facility] MEDICINE [address], [place] [phone] Karen Burns MD [address] [place], [place] [phone] Appointment Request Social History Tobacco Use Types [...] Notes * Telephone Encounter - Eddie Rucker Baxter - 10/23/2022 9:41 AM EDT Tc from pt requesting to r/s appt 10/19/2022 for Follow up with provider. Please contact pt at [phone] documented in this encounter Plan of Treatment Upcoming Encounters Date Type Department Care Team (Late st Contact Info) Description 03/31/2025 10:15 AM EDT Office Visit [facility] ADULT DENTAL [address] [place] [address] Giorgio Álvarez documented as of this encounter Visit Diagnoses Not on filedocumented in this encounter Care Teams Tilting Saw Operator Relationship Specialty Start Date End Date Karen Burns MD [address] [place] [address] PCP - General Family Medicine 04/21/19 02/18/23 Rosemary Santiago FNP [address] [place] [address] PCP - General Family Medicine 02/19/23 Ted Hood Community Health Worker 01/23/24 documented as of this encounter
--- OUTSIDE RECORDS SUMMARY | 2025-03-12 12:24 | XMS_ITS | Encounter Summary ---
Author Organization [employer] Address [address] [facility] [address] [place] [address] Care Team Providers Care Smoke Jumper Name Role Phone Karen Burns MD Primary Care Provider + Rosemary Santiago Primary Care Provider [phone] Ted Hood Unavailable Encounter Details Date Type Department Care Team (Late st Contact Info) Description 06/06/2022 Orders Only [facility] [address] [place], [place] [phone] Barb Goodwin LPN Social History Tobacco Use [...] Description 03/31/2025 10:15 AM EDT Office Visit [facility] [address] [place] [address] Giorgio Álvarez documented as of this encounter Visit Diagnoses Not on filedocumented in this encounter Care Teams Smoke Jumper Relationship Specialty Start Date End Date Karen Burns MD [address] [place] [address] PCP - General Family Medicine 04/21/19 02/18/23 Rosemary Santiago FNP [address] [place] [address] PCP - General Family Medicine 02/19/23 Ted Hood Community Health Worker 01/23/24 documented as of this encounter
--- OUTSIDE RECORDS SUMMARY | 2025-03-12 12:25 | XMS_ITS | Encounter Summary ---
Author Organization [employer] Address [address] [facility] [address] [place] [address] Care Team Providers Care Manager Process Name Role Phone Rosemary Santiago Primary Care Provider [phone] Ted Hood Unavailable Reason for Visit * Reason Onset Date Comments Referral 04/08/2023 Encounter Details Date Type Department Care Team ([facility] Contact Info) Description 04/08/2023 Telephone [facility] [address] [place], [place] [phone] Rosemary Santiago FNP [address] [place] [address] Referral Social History Tobacco Use Types Packs/Day [...] Description 03/31/2025 10:15 AM EDT Office Visit [facility] ADULT [facility] [address] [place] [address] Giorgio Álvarez documented as of this encounter Visit Diagnoses Not on filedocumented in this encounter Care Teams Manager Process Relationship Specialty Start Date End Date Rosemary Santiago FNP [address] [place] [address] PCP - General Family Medicine 02/19/23 Ted Hood Community Health Worker 01/23/24 documented as of this encounter
--- OUTSIDE RECORDS SUMMARY | 2025-03-12 12:25 | XMS_ITS | Encounter Summary ---
Author Organization [employer] Address [address] [facility] [address] [place] [address] Care Team Providers Care Data Mining Analyst Name Role Phone Rosemary Santiago CAMPER ASSEMBLER Primary Care Provider [phone] Reason for Referral * Consultation (Routine) - Canceled Specialty Diagnoses / Procedures Referred By Contac t Referred To Contact Pharmacy Diagnoses Type 2 diabetes mellitus with hyperglycemia, without long-term current use of insulin (CMS/HCC) Clara Holloway MD [address] [place] [address] Phone: tel: fax: Referral ID Status Reason Start Date Expiration Date V isits Requested Visits Authorized [id number] Canceled Consult and Treat 07/15/2024 07/15/2025 6 0 Encounter Details Date Type Department Care Team (Late st Contact Info) Description 07/15/2024 Orders Only [facility] MEDICINE [address] [place] [address] [phone] Clara Holloway MD [address] [place], [place] [phone] Type 2 diabetes mellitus with hyperglycemia, without [...] Description 03/31/2025 10:15 AM EDT Office Visit [facility] ADULT DENTAL [address] [place] [address] Giorgio Álvarez Scheduled Referrals Name Type Priority Associated Diagnoses Orde r Schedule Referral to Pharmacy CDTM Outpatient Referral Routine Type 2 diabetes mellitus with hyperglycemia, without long-term current use of insulin (CMS/HCC) Ordered: 07/15/2024 documented as of this encounter Visit Diagnoses Diagnosis Type 2 diabetes mellitus with hyperglycemia, without long-term current use of insulin (CMS/HCC)- Primary documented in this encounter Additional Health Concerns Assessment Noted Time PHQ-9 Depression Total Score: 4 09/27/19 24 10:48 AM EDT documented as of this encounter Care Teams Data Mining Analyst Relationship Specialty Start Date End Date Rosemary Santiago FNP [address] [place] [id number] PCP - General Family Medicine 02/19/23 documented as of this encounter
--- OUTSIDE RECORDS SUMMARY | 2025-03-12 12:25 | XMS_ITS | Clinical Summary ---
Author Organization [employer] Address [address] [place] [address] Care Team Providers Care Family Medicine Chair Name Role Phone Rosemary Santiago HEAT PLANT SPECIALIST Primary Care Provider [phone] Allergies Active Allergy Reactions Criticality Noted Date [...] 10/30/2021 Medications ergocalciferol (Vitamin D2) 1.25 MG (64712 UT) capsule TAKE 1 CAPSULE BY MOUTH ONCE A WEEK 2 Active Yuvafem 10 MCG tablet vaginal tablet INSERT 1 TABLET VAGINALLY 2 TIMES A WEEK -USE VAGINALLY 2X PER WEEK MON/THUR 2 Active UltiCare Short Pen [place] 31G X 8 MM misc USE DAILY DIRECTED 2 Active glucose (Glutose) 40 % gel oral gelIndications:T ype 2 diabetes mellitus with hyperglycemia, without long-term current use of insulin ([facility]) Take 15 g by mouth if needed for low blood sugar. 60 g 3 3 Active clobetasol (Temovate) 0.05 % cream Apply topically 2 times daily. 60 g 1 3 Active omeprazole (PriLOSEC) [address] capsule Take 20 mg by mouth 2 times daily. 3 Active Diclofenac Sodium 1 % gel Apply 2 g topically if needed in the morning, at noon, in the evening, and at bedtime (pain). APPLY 2 GRAMS TOPICALLY TO AFFECTED AREA(S) THREE TIMES DAILY 150 g 3 4 Active Blood Glucose Monitoring Suppl (FreeStyle [place] Lite) w/Device kit USE DIRECTED 1 kit 1 4 Active TRUEplus Lancets 33G miscIndications: Type 2 diabetes mellitus with hyperglycemia, without long-term current use of insulin ([facility]) TEST BLOOD SUGAR THREE TIMES DAILY 100 each 5 4 Active fluticasone (Flonase) 50 MCG/ACT nasal spray Administer 1-2 sprays into each nostril Once per day. Shake gently. Before first use, prime pump. After use, clean tip and replace cap. 16 g 2 5 07/03/19 26 Active olmesartan (Benicar) 5 MG tabletIndication s:Type 2 diabetes mellitus with hyperglycemia, without long-term current use of insulin ([facility]) Take 1 tablet (5 mg) by mouth Once per day. 90 tablet 1 5 09/26/19 26 Active busPIRone (Buspar) 5 MG tabletIndication s:Anxiety Take 1 tablet (5 mg) by mouth 2 times daily. 60 tablet 2 5 09/26/19 26 Active cholecalciferol (Vitamin D-3) 25 MCG (1000 UT) tablet Take 1 tablet (25 mcg) by mouth Once per day. 90 tablet 1 5 Active Lidocaine 5 % creamIndications :Right-sided back pain, unspecified back location, unspecified chronicity Apply topically bid 30 g 3 5 Active glucose blood (FREESTYLE LITE) test stripIndications :Type 2 diabetes mellitus with hyperglycemia, without long-term current use of insulin ([facility]) USE 1 STRIP TO CHECK GLUCOSE THREE TIMES DAILY 100 each 5 5 Active baclofen (Lioresal) 10 MG tabletIndication s:Bilateral thoracic back pain, unspecified chronicity Take 1 tablet (10 mg) by mouth if needed at bedtime for muscle spasms. 60 tablet 1 5 Active fluconazole (Diflucan) 150 MG tablet Take 1 tablet by mouth today. Repeat in 72 hours if symptoms persist. 2 tablet 5 Active metFORMIN (Glucophage) 1000 MG tabletIndication s:Type 2 diabetes mellitus with hyperglycemia, without long-term current use of insulin ([facility]) TAKE 1 TABLET BY MOUTH EVERY MORNING AND EVERY EVENING WITH MEAL 180 tablet 3 5 Active pioglitazone (Actos) 15 MG tablet Take 1 tablet (15 mg) by mouth Once per day. 90 tablet 1 5 03/12/20 26 Active FREESTYLE LITE test stripIndications :Type 2 diabetes mellitus with hyperglycemia, without long-term current use of insulin ([facility]) Use to test blood sugar 3 times daily 100 each 12 5 03/12/20 26 Active Lancets miscIndications: Type 2 diabetes mellitus with hyperglycemia, without long-term current use of insulin ([facility]) Use to test blood sugar 3 times daily 100 each 5 Active Alcohol Swabs 70 % padsIndications: Type 2 diabetes mellitus with hyperglycemia, without long-term current use of insulin ([facility]) Use to test blood sugar 3 times daily 100 each 5 Active Blood Glucose Monitoring Suppl (FreeStyle [place] Lite) w/Device kitIndications:T ype 2 diabetes mellitus with hyperglycemia, without long-term current use of insulin ([facility]) Use to test blood sugar 3 times daily 1 kit 5 Active Active Problems Patient Care Coordination No te Formatting of this note migh t be different from the original. C3/CM Ashley Glover RN / Yobany Hood RN (initiated care Jan 2024) Problem Noted Date Diagnosed Date Right-sided back pain 09/29/2024 Assessment & Plan (09/29/2024 10:22 AM EDT): S/p fall 3 days ago with total body pain on right side. No evidence of trauma or fracture. Likely musculoskeletal strain in the setting of fibromyalgia. She has multiple intolerances to pain medications. Advise rest, warm compress, gentle touch, lidocaine cream. Return if symptoms worsen or do not improve. She agrees with the plan. Urinary tract infection without hematuria 2023 Assessment [...] stress female 12/29/2023 Overview (12/29/2023): Following with [facility]. During consult in September 2023, plan to start vaginal estrogen and try kegals Healthcare maintenance 06/08/2023 Overview (06/21/2024): Mammogram: 07/30/23 BIRADS 2 Colonoscopy: Cologuard ordered 06/08/24 Pap: scheduled 06/30/24 with [facility] CNM Chronic bilateral low back pain without sciatica 12/18/2022 Assessment & Plan (02/19/2023 11:12 AM EDT): No red flag symptoms Referral to physical therapy location: [facility] in [facility] Assessment & Plan (12/18/2022 1:18 PM EDT): S/p fall a few weeks ago referral to pray PT ([facility]?) Use tylenol PRN Peroneal neuropathy 06/14/2022 Overview (07/30/2022): NCS at [facility] [place] 07/23/19 Assessment & Plan (07/30/2022 12:41 PM EST): Sxs apparently worsened by Lantus (?), patient self dc'd it. 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 Reviewed med safety and SE Previous med trials: - Hydroxyzine 10mg QID PRN - BZO (rec against alliances consultant use) Assessment & Plan (04/19/2024 4:41 PM EDT): Start buspirone 5mg BID. Reviewed med safety and SE Previous med trials: - Hydroxyzine 10mg QID PRN - BZO (rec against alliances consultant use) Arthritis of right ankle 06/14/2022 Benign essential HTN 06/14/2022 Overview (02/19/2023): BP goal: < 130/80 mmHg Continue with the following medications: Lisinopril 5mg daily -Aerobic exercise to reduce [...] podiatry, she was going to podiatry in Winter but missed appointments Reminded her to pick up man x-rays from 2019 Assessment & Plan (07/30/2022 12:51 PM EST): FU with podiatry. Patient will call for appt. Cirrhosis of liver 06/14/2022 Overview (08/27/2023): Compensated cirrhosis likely due to non-alcoholic fatty liver disease given hx of T2DM Meld score 7 Following with [facility] (Dr. Espinoza) - last consult December 2022 Scheduled for upper endoscopy to screen for varices Routine Education: advised to avoid alcohol, maintain healthy weight (goal to lose 10% body weight) HCC Surveillance: through GI, reports last completed Jan 2023. Assessment & Plan (09/29/2023 11:39 AM EDT): Pt currently in process of transitioning to [facility] GI, lab work to be completed next appt, as well as discuss ordering abd US pending initial consult with new GI provider Assessment & Plan (08/27/2023 6:04 PM EST): Referral to [facility] placed 08/27/23 as more convenient location Synovial cyst of hand 06/14/2022 Nonalcoholic steatohepatitis 06/14/2022 Assessment & Plan (12/18/2022 1:22 PM EDT): Pt had fatty liver followed by GI. Counseled for her to reschedule appointment with GI Obstructive sleep apnea syndrome 06/14/2022 Overview (02/19/2023): Mild. Sleep study at [facility] on 11/10/[address] Burns Assessment & Plan (12/18/2022 1:17 PM EDT): sleep study done on 2020, she has not receieved CPAP yet and there hasn't been a close follow up with DME supplier I will discuss with family preservation caseworker who will find out with supplier about [...] long-term current use of insulin 06/14/2022 Overview (03/12/2025): A1c: above goal Lab Results Component Value Date HGBA1C 10.6 (A) 09/25/2024 HGBA1C 11.8 (A) 04/17/2024 HGBA1C 12.1 (A) 12/27/2023 HGBA1C 10.0 08/08/2022 HGBA1C 9.0 (H) 12/21/2020 HGBA1C 8.2 (H) 06/27/2020 Microalbumin: WNL November 2022 Eye exam: 04/23/24 at [facility] Eye Care: severe non-proliferative diabetic retinopathy with mild macular edema bilaterally. Foot exam: discuss at follow up Dental: discuss at follow up PNA: due (declined) Tdap/Td: due (declined) ACEi/ARB: yes - lisinopril Statin: recommend mod intensity statin pending electronic components assembler results ASA: no Lab Results Component Value Date CHOL 195 09/23/2023 TRIG 156 (H) 09/23/2023 TRIG 157 (H) 06/06/2022 HDL 46 09/23/2023 LDLCHOLCAL 118 (H) 09/23/2023 Lifestyle: Encouraged regular movement and aerobic exercise for improved glycemic control Encouraged daily foot checks Encouraged lean protein snacks and to avoid foods high in sugar and simple carbohydrates Medications: Metformin 1000mg BID (Brand: NativeEnergylan [facility] [id number]) Start tirzepatide 2.5mg subcutaneous weekly. Reviewed med safety and SE Reports previous SE/intolerance/rxn to the following medications: metformin (certain brand only), glyburide, glipizide, lantus, trulicity, tradjenta, Invokana, Jardiance, Amaryl, semaglutide (injectable and oral) (upcoming appt for allergy testing) Treatment Goals: A1c goal: <7% FBG goal: <130 2 hour post prandial goal: <180 Assessment & Plan (09/28/2024 4:21 PM EDT): - Referred to [facility] CDE and traffic expert September 2023, missed multiple appts - Discussed adverse sequela of poorly controlled BG and importance of improving A1c together - Plan: electronic components assembler consult, nutrition modifications, increase physical activity - Declines interest in CDE TM referral as of September 2024 Assessment & Plan (04/19/2024 4:51 PM EDT): - Referred to [facility] CDE and traffic expert September 2023, missed multiple appts - Discussed adverse sequela of poorly controlled BG and importance of improving A1c together - Plan: electronic components assembler consult, nutrition modifications, increase physical activity Assessment & Plan (12/29/2023 4:22 PM EDT): - Referral to [facility] CDE and traffic expert placed in September 2023, pt missed appt and would like to reschedule. Will send message to team. - Life stressors including housing situation likely contributing to difficulty with BG control. Interested in establishing with CM, referral placed 12/29/23. - Discussed adverse sequela of poorly controlled BG and importance of improving A1c together Assessment & Plan (09/29/2023 11:32 AM EDT): Referral to [facility] CDE and traffic expert Pt requesting to trial injectable Ozempic. Previous trial of oral formulation and did not tolerate GI SE. Denies any swelling or anaphylactic rxn. Sister is currently using Ozempic w/o SE. Will initiate prescription/referral Assessment & Plan (02/19/2023 10:31 AM EDT): -Referral to electronic components assembler Jan 2023 for history of multiple reactions [...] veins of lower extremity 06/14/2022 Overview (02/19/2023): Reported history of varicose vein surgery in [facility] Last available consult note from Vascular 04/25/2020 ([facility]). Interested in re-establishing with vascular - referral placed Jan 2023 Encouraged to cont with compression stockings Assessment & Plan (07/30/2022 12:50 PM EST): Counseled to wear compression stockings. Neg skin changes Benign neoplasm of female breast 04/27/2020 Overview (08/25/2023): Right breast biopsy 2020 at [facility]. Impression: pathology results revealed benign breast tissue with no suspicious findings. 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 05/28/2016 Overview (06/14/2022): [facility]16 Resolved Problems Problem Noted Date Diagnosed Date Resolved Date Achilles tendinosis 06/14/2022 02/20/20 Acute maxillary sinusitis 06/14/2022 Anterior tibialis tendinitis [...] Encounters Date Type Department Care Team Description 03/12/2025 10:00 AM EDT Office Visit [facility] [address] [place] [address] Rosemary Santiago FNP Type 2 diabetes mellitus with hyperglycemia, without long-term current use of insulin ([facility]) (Primary Dx); Dietary counseling; Exercise counseling; Left foot pain; Urinary symptom or sign 03/12/2025 Travel 01/01/2025 Telephone [facility] [address] [place] [address] Rosemary Santiago FNP No Show 01/01/2025 Telephone [facility] [address] [place] [address] Rosemary Santiago FNP chart prep from Last 3 Months Immunizations Immunization Administration Dates Next Due Hep A / [...] got money to buy more: Sometimes True 08/01/ 2024 Within the past 12 months,th e food [...] Mass Index 29.52 03/12/2025 10:22 AM EDT Plan of Treatment Upcoming Encounters Date Type Department Care Team (Late st Contact Info) Description 03/31/2025 10:15 AM EDT Office Visit [facility] [address] [place] [address] Giorgio Álvarez Health Maintenance Due Date Last Done Comments CT Colonography 1975 Colonoscopy 1975 Colorectal Cancer Screening 1975 FIT DNA/Cologuard 1975 FIT 1975 FOBT [...] exists Lipid Panel 09/22/2024 09/23/2023, 05/24, 06/27/2020 SDOH Screening 01/22/2025 01/23/2024 COVID-19 Vaccine (2 - season) 2025 02/21/2021 Influenza Vaccine (#1) 2025 , 04/23/2019, 04/10/2018, Additional history exists Dental Oral Exam 04/02/2025 09/30/2024 Dental Prophylaxis 04/02/2025 09/30/2024 Eye Exam 04/23/2025 04/23/2024, 03/26, 04/23/2024, Additional history exists Diabetes: Hemoglobin A1C 06/11/2025 025, 09/25/2024, 04/17/2024, Additional history exists Dental X-Ray: Bitewings 10/01/2025 09/30/2024 Depression Screening 11/13/2025 11/13/2024, 11/14/19 25 Tobacco Screening 11/13/2025 11/13/2024 Disability Screening 03/12/2026 03/12/2025 Dental X-Ray: Full Mouth 10/02/2027 09/30/2024 HPV/Cotest 06/30/2029 Pap Smear 06/30/2029 06/30/2024 RSV [...] hyperglycemia, without long-term current use of insulin ([facility]) POCT GLYCATED HEMOGLOBIN, TOTAL Routine 03/12/2025 11:18 AM EDT Type 2 diabetes mellitus with hyperglycemia, without long-term current use of insulin ([facility]) XR THORACIC SPINE 2 VIEWS Routine 12/14/2024 9:30 AM EDT Bilateral thoracic back pain, unspecified chronicity PROPHYLAXIS - ADULT Routine 09/30/2024 9 :00 AM EDT INTRAORAL - COMPLETE SERIES OF RADIOGRAPHIC IMAGES Routine 09/30/2024 9:00 AM EDT COMPREHENSIVE ORAL EVALUATION - NEW OR ESTABLISHED PATIENT Routine 09/30/2024 9:00 AM EDT PAP SMEAR Routine 06/30/2024 11:04 AM EST [...] to Health Maintenance Results * (ABNORMAL) POCT Glucose (03/12/2025 11:19 AM EDT) Glucose Blood, POC 373(A) 60 - 200 mg/dL [employer] Lot # [id number] Lot# Expiration Date ,906 Comment:random Blood Capillary blood specimen / Unknown 03/12/2025 11:19 AM EDT us Rosemary Santiago HEAT PLANT SPECIALIST POINT OF CARE TEST ENTER/EDIT ORDERABLES Final Result * (ABNORMAL) POCT Hgb A1c (03/12/2025 11:18 AM EDT) Hemoglobin A1C 12.5(A) 4.0 - 5.7 % QC [employer] Lot # [id number] Lot# Expiration Date 966,091 Blood 03/12/2025 11:1 8 AM EDT us Rosemary Santiago HEAT PLANT SPECIALIST POINT OF CARE TEST ENTER/EDIT ORDERABLES Final Result * XR Thoracic Spine 2 Views (12/14/2024 9:30 AM EDT) Anatomical Region Laterality Modality Spine, T-spine Radiographic Catherine ging 12/14/2024 9:30 AM EDT Narrative 12/14/2024 10:42 AM EDT [address] [address] XRay Report Signed Patient: Barb Lo MR#: [id number] : 1975 Acct:[id number] Age/Sex: 49 / F ADM Date: 12/14/24 Loc: HO.CX Attending Dr: Rosemary Santiago HEAT PLANT SPECIALIST Ordering Physician: Rosemary Santiago Date of Service: 12/14/24 Procedure(s): XR thoracic spine 2V Accession Number(s): [id number] cc: Rosemary Santiago EXAMINATION: XR THORACIC SPINE CLINICAL INFORMATION: PAIN, fell in September 2024, pain since then is worse COMPARISON: None available. TECHNIQUE: AP and lateral views of the thoracic spine were obtained. FINDINGS: Cervicothoracic junction is obscured by overlapping bony and soft tissues. Vertebral body height and alignment is preserved. There is mild disc space narrowing and small marginal osteophytes in the mid to upper thoracic spine. 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 Electronically signed by: Noah Gomez MD 12/14/2024 10:39 AM EDT Dictated By: Noah Gomez MD Signed By: <Electronically signed by Noah Gomez MD in OV> 12/14/24 1039 DD/ 0930 TD/TT: 12/14/24 0940 Fire Equipment Repairer Inspector: Procedure Note Donotuseinterpreter, Image - 12/14/[address] [address] XRay Report Signed Patient: Barb LoMR#: [id number] : 1975Acct:[id number] Age/Sex: 49 / FADM Date: 12/14/24 Loc: HO.CX Attending Dr: Rosemary RIBEIRO Ordering Physician: Rosemary Santiago Date of Service: 12/14/24 Procedure(s): XR thoracic spine 2V Accession Number(s): [id number] cc: Rosemary Santiago EXAMINATION: XR THORACIC SPINE CLINICAL INFORMATION: PAIN, fell in September 2024, pain since then is worse COMPARISON: None available. TECHNIQUE: AP and lateral views of the thoracic spine were obtained. FINDINGS: Cervicothoracic junction is obscured by overlapping bony and soft tissues. Vertebral body height and alignment is preserved. There is mild disc space narrowing and small marginal osteophytes in the mid to upper thoracic spine. 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 Electronically signed by: Noah Gomez MD 12/14/2024 10:39 AM EDT RP Dictated By: Noah Gomez MD Signed By: <Electronically signed by Noah Gomez MD in OV> 12/14/24 1039 DD/ 0930 TD/TT: 12/14/24 0940 Fire Equipment Repairer Inspector: Rosemary RIBEIRO IMG XR PROCEDURES Final Result * Pap Smear (06/30/2024 11:04 AM EST) Swab 06/30/2024 11:0 4 AM EST 07/01/2024 10:20 AM EST [facility] - 07/06/2024 12:50 PM EST ----- ------- Name: Barb Lo Age/Sex: 49/F : 1975 Unit#: [id number] Attend Dr: JOHN BURNS CNM Re06/30/24 Status: DEP REF Location: [facility] Disch: ----- ------- SPEC : [id number] RECD: 07/01/24-1020 STATUS: CRISTOFER MENJIVAR NUM: [id number] PETAR: 06/30/[address] [facility] [address]: JOHN BURNS CNM ENTERED: 07/01/24 SP TYPE: Pap Smr OTHR DR: ORDERED: Pap Smear Interpretation Satisfactory for evaluation. Negative for intraepithelial lesion or malignancy. HPV High Risk: Negative HPV Genotyping 16: Negative HPV Genotyping 18: Negative Clinical Information LMP: Postmenopausal Previous PAP test: Unknown date/findings Other surgery: Hysterectomy Material Received ThinPrep-Cervical ----- ------- Signed (signature on file) FRANKY Parsons (ASCP) 07/06/24 1250 ----- ------- END OF REPORT us John Burns CNM LAB CYTOLOGY ORDERABLES F inal Result Performing Organization Address City/[facility]/ZIP Co de Phone Number [facility] [address] [place] [address] [phone] * (ABNORMAL) Lipid Panel, Standard (09/23/2023 10:45 AM EDT) Triglycerides 156(H) <150 mg/dL [facility] Comment:Desirable Triglyceri de: less than 150 mg/dLBorderline High Triglyceride 150-199 mg/dLHigh Triglyceride: 200-499 mg/dLVery High Triglyceride: greater than or equal to 5OO mg/dL Cholesterol 195 <200 mg/dL [facility] Comment:Desirable Cholestero l: less than 200 mg/dLBorderline High Cholesterol: 200-239 mg/dLHigh Cholesterol: greater than 239 mg/dL LDL Cholesterol Calculated 118(H) <100 mg/dL [facility] Comment:Desirable LDL: less than 100 mg/dLNear Optimal/Above Optimal LDL: 110- 129 mg/dLBorderline High LDL: 130-159 mg/dLHigh LDL: 160-189 mg/dLVery High LDL: greater than or equal to 190 mg/dL HDL Cholesterol 46 >40 mg/dL [facility] Comment:Desirable HDL: great er than 40 mg/dL Note: This HDL assay may give artificially low results in patients with liver disease. Blood Venous blood specimen / Unknown 09/23/2023 10:45 AM EDT 09/23/2023 1:16 PM EDT Rosemary Santiago HEAT PLANT SPECIALIST LAB BLOOD ORDERABLES Final Res ult [facility] [address] [place] [address] [phone] * BI Mammogram Screening Tomosynthesis Bilateral (07/30/2023 10:25 AM EST) Anatomical Region Laterality Modality Breast Bilateral Mammography 07/30/2023 10:2 5 AM EST Narrative 08/25/2023 9:04 AM EST [facility] [place] [address] Mammography Report Signed Patient: Barb Lo MR#: [id number] : 1975 Acct:[id number] Age/Sex: 48 / F ADM Date: 07/30/23 Loc: HO.MAMMO Attending Dr: Rosemary Santiago HEAT PLANT SPECIALIST Ordering Physician: Rosemary Santiago Results: 2Benig n Findings Date of Service: 07/30/23 Follow Up: 1 Year From Orig inal Mammogram Procedure(s): MM tomosynthesis screening BI Accession Number(s): [id number] cc: Rosemary Santiago HEAT PLANT SPECIALIST EXAMINATION: MM SCREENING DIGITAL BREAST TOMOSYNTHESIS, BILATERAL [...] in OV> 08/25/23 0901 DD/ 1025 TD/TT: Fire Equipment Repairer Inspector: Procedure Note Donotuseinterpreter, Image - 08/25/2023 [facility] [address] [place] [address] Mammography Report Signed Patient: Barb LoMR#: [id number] : 1975Acct:[id number] Age/Sex: 48 / FADM Date: 07/30/23 Loc: HO.MAMMO Attending Dr: Rosemary Santiago HEAT PLANT SPECIALIST Ordering Physician: Rosemary SantiagoPResults: 2Benig n Findings Date of Service: 07/30/23Follow Up: 1 Year From [facility] ina Mammogram Procedure(s): MM tomosynthesis screening BI Accession Number(s): [id number] cc: Rosemary Santiago EXAMINATION: MM SCREENING DIGITAL [...] in OV> 08/25/23 0901 DD/ 1025 TD/TT: Fire Equipment Repairer Inspector: Rosemary RIBEIRO IMG BI PROCEDURES Edited Resul t - Final * Albumin, Random Urine W/O Creatinine (12/18/2022 10:04 AM EDT) Albumin, Urine 2.9 See Note: mg/dL [facility] [place] [employer] Comment: Reference Range: Reference Range Not established BRENT [facility] [place] [employer] Comment: The ADA defines abnormalities in albumin excretion as follows: Albuminuria Category Result (mcg/mg creatinine) Normal to Mildly increased <30 Moderately increased 30-299 Severely increased > OR = 300 The ADA recommends that [...] ORDERABLES Fin al Result Performing Organization Address [facility] de Phone Number [facility] [address] [place] [address], [place] [address] [facility] [place] [employer] [address] [place] [phone] * Hepatitis C Antibody with Reflex to HCV, RNA, Quantitative, Real-Time PCR (06/06/2022 9:40 AM EST) Hepatitis C Antibody NON-REACT [place] NON-REACT [place] [facility] Index 0.03 <1.00 [facility] Comment: HCV antibody was non-reactive. There is no laboratory evidence of HCV infection. In most cases, no further action is required. However, if recent HCV exposure is suspected, a test for HCV RNA (test code 76931) is suggested. For additional information please refer to http://education.[employer]/faq/NGV14s7 (This link is being provided for informational/ educational purposes only.) 06/06/2022 9:40 AM EST 06/06/2022 9:41 AM EST Narrative [facility] - 06/06/2022 8:51 PM EST FASTING:YES FASTING: YES Karen Burns MD LAB BLOOD ORDERABLES Fin al Result Performing Organization Address [facility] Co de Phone Number [facility] [address] [place] [address], [place] [address] [facility] [place] [facility] [address] [place] [address], [place] [address] * HIV-1/2 Antigen and Antibodies, Fourth Generation, with Reflexes (06/06/2022 9:40 AM EST) HIV Antigen/Antibody, 4th Generation NON-REAC TIVE NON-REAC TIVE [facility] Comment: HIV-1 antigen and HIV-1/HIV-2 antibodies were not detected. There is no laboratory evidence of HIV infection. PLEASE NOTE: This information has been disclosed to you from records whose confidentiality may be protected by state law. If your state requires such protection, then the state law prohibits you from making any further disclosure of the information without the specific written consent of the person to whom it pertains, or as otherwise permitted by law. A general authorization for the release of medical or other information is NOT sufficient for this purpose. For additional information please refer to http://education.[employer] [facility]/faq/RCF246 (This link is being provided for informational/ educational purposes only.) The performance of this assay has not been clinically validated in patients less than 2 years old. 06/06/2022 9:40 AM EST 06/06/2022 9:41 AM EST Narrative [facility] - 06/06/2022 8:51 PM EST FASTING:YES FASTING: YES Karen Burns MD LAB BLOOD ORDERABLES Fin al Result [facility] [address], [place] [address] [facility] [address], [place] [address] from Last 3 Months or Most Recently Relevant to Health Maintenance Insurance [facility] C3 Care Teams Family Medicine Chair Relationship Specialty Start Date End Date Rosemary Santiago FNP [address] [place] [address] PCP - General Family Medicine 02/19/23
--- OUTSIDE RECORDS SUMMARY | 2025-03-12 12:25 | XMS_ITS | Encounter Summary ---
Author Organization [employer] Address [address] [facility] 7 [place] [address] Care Team Providers Care Punching Machine Operator Name Role Phone Jeaninedarren Rosemary FRONT END JAVA DEVELOPER Primary Care Provider [phone] Reason for Referral * Consultation (Routine) - Canceled Specialty Diagnoses / Procedures Referred By Contomid t Referred To Contact Pharmacy Diagnoses Type 2 diabetes mellitus with hyperglycemia, without long-term current use of insulin (CMS/HCC) Emperatriz Álvarez MD [address] [place] [address] Phone: tel: fax: Referral ID Status Reason Start Date Expiration Date V isits Requested Visits Authorized [id number] Canceled Consult and Treat 07/24/2024 07/24/2025 6 6 Encounter Details Date Type Department Care Team ([facility] st Contact Info) Description 07/24/2024 Orders Only [facility] P[facility] [address] [place] [address] Emperatriz Álvarez MD [address] [place] [address] Type 2 diabetes mellitus with hyperglycemia, without [...] Description 03/31/2025 10:15 AM EDT Office Visit [facility] [address] [place] [address] Giorgio Álvarez Scheduled Referrals Name Type Priority Associated Diagnoses Orde r Schedule Referral to Pharmacy CDTM Outpatient Referral Routine Type 2 diabetes mellitus with hyperglycemia, without long-term current use of insulin (CMS/HCC) Ordered: 07/24/2024 documented as of this encounter Visit Diagnoses Diagnosis Type 2 diabetes mellitus with hyperglycemia, without long-term current use of insulin (CMS/HCC)- Primary documented in this encounter Additional Health Concerns Assessment Noted Time PHQ-9 Depression Total Score: 4 09/27/19 24 10:48 AM EDT documented as of this encounter Care Teams Punching Machine Operator Relationship Specialty Start Date End Date Rosemary Santiago FNP [address] [place] [address] PCP - General Family Medicine 02/19/23 documented as of this encounter
[2025-03-13 11:23] LABS: Chlamydia pneumoniae PCR Not Detected (Not Detect.); Coronavirus 229E PCR Not Detected (Not Detect.); Coronavirus HKU1 PCR Not Detected (Not Detect.); Coronavirus NL63 PCR Not Detected (Not Detect.); Coronavirus OC43 PCR Not Detected (Not Detect.); RSV PCR Not Detected (Not Detect.); Rhino/Enterovirus PCR Detected (Not Detect.)
[2025-03-13 11:38] LABS: Influenza A H1 PCR Not Detected (Not Detect.); Influenza A H1-2009 PCR Not Detected (Not Detect.); Influenza A H3 PCR Not Detected (Not Detect.); SARS-CoV-2 PCR Not Detected (Not Detect.)
== END 2025-03-12 12:05 | disposition home or self-care (01) ==
LOC: HO.CHCLNP 12:04
PROVIDERS: PCP Registered Nurse; Visit Provider Registered Nurse
DX: R39.9 Unspecified symptoms and signs involving the genitourinary system (principal)
CPT/HCPCS: 87633

== ENCOUNTER 2025-05-06 16:17 | Outpatient (REF) | payer MEDICAID, SELFPAY ==
--- OUTSIDE RECORDS SUMMARY | 2025-05-06 11:20 | XMS_ITS | Encounter Summary ---
Author Organization [employer] Address [address] [facility] 7t [place] [address] Care Team Providers Care Animal Impersonator Name Role Phone Rosemary Santiago PAN WASHER HAND Primary Care Provider [phone] Jules Hines RN Unavailable [phone] Ted Hood Unavailable Encounter Details Date Type Department Care Team ([facility] st Contact Info) Description 05/06/2025 11:20 AM EST Office [address] [facility] [address] [place] [address] Dari Pritchard DO [address] [place] [address] Acute UTI (Primary Dx); Vaginal itching Social History Tobacco Use Types Packs/Day Years [...] Sign Reading Time Taken Comments Blood Pressure 130/70 05/06/2025 11:15 AM EST Pulse 81 05/06/2025 11:15 AM EST Temperature 36.6 C (97.9 F) 05/06/2025 11:15 AM EST Respiratory Rate 19 05/06/2025 11:15 AM EST Oxygen Saturation 98% 05/06/2025 11:15 AM EST Inhaled Oxygen Concentration - - Weight - - Height 162.6 cm (5' 4 ) 05/06/2025 11:15 AM EST Body Mass Index - - documented in this encounter Progress Notes * Dari Pritchard, DO - 05/06/2025 11:20 AM EST SUBJECTIVE Barb Lo is a 50 y.o. female who presents for Sick Visit. She presents to [place] today c/o UTI sx. She says she thinks she has UTI. She says that she started with low back pain and burning with urination 3-4 days ago. She denies any urinary frequency or urgency. She says that she has been having some urinary incontinence for the last couple of days. She says that sometimes she urinates nml and sometimes voids just small amounts. She was last treated for UTI in October for her PCP with macorbid andhad no adverse reaction. She says that she has also been having vaginal itching on the outside for the last 3-4 days as well. She denies any vaginal discharge. She says that her BS have been in the 300s. History provided by: Patient foster care case manager used: No UTI Severity: Moderate Onset quality: Sudden Duration: 4 days Timing: Constant Progression: Worsening Chronicity: Recurrent Associated symptoms: no abdominal pain, no chest pain, no cough, no diarrhea, no fever, no headaches, no nausea, no rash, no shortness of breath and no vomiting Review of Systems Constitutional: Negative for activity change, appetite change, chills, fever and unexpected weight change. Respiratory: Negative for cough and shortness of breath. Cardiovascular: Negative for chest pain, palpitations and leg swelling. Gastrointestinal: Negative for abdominal pain, diarrhea, nausea and vomiting. Genitourinary: Positive for decreased urine volume, dysuria and flank pain. Negative for difficultyurinating, frequency, hematuria and urgency. Skin: Negative for rash. Neurological: Negative for weakness and headaches. 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 Bone spur of foot Cirrhosis of liver (CMS/HCC) (HCC) Combined forms of age-related cataract of both eyes Fibromyalgia Synovial cyst of hand Nonalcoholic steatohepatitis Obstructive sleep apnea syndrome Open angle with borderline findings and low glaucoma risk in both eyes Pharyngeal dysphagia Pure hypercholesterolemia Supraventricular premature beats Type 2 diabetes mellitus with retinopathy, without long-term current use of insulin (HCC) Varicose veins of lower extremity Vitamin D deficiency Chronic bilateral low back pain without sciatica Healthcare maintenance Urinary, incontinence, stress female Plantar wart of left foot Urinary tract infection without hematuria Right-sided back pain Allergies Allergen Reactions Acetaminophen Amoxicillin-Pot Clavulanate Other Reaction(s): Rash/Dermatitis Hydrocodone Iodine Lantus [Insulin Glargine] Dermatitis Linagliptin Macrobid [Nitrofurantoin] Itching Swelling lip and itchiness in hand Penicillin G Sitagliptin dizzy Sulfamethoxazole Trimethoprim Canagliflozin Rash Other reaction(s): Rash Ciprofloxacin Angioedema, Itching and Rash Hydrocodone-Acetaminophen Rash Oxycodone-Acetaminophen Rash and Itching Penicillins Rash Simvastatin Rash Other Reaction(s): Muscle pain OBJECTIVE Visit Vitals BP 130/70 (BP Location: Right arm, Patient Position: Sitting, BP Cuff Size: Adult) Pulse 81 Temp 97.9 ??F (36.6 ??C) (Oral) Resp 19 Ht 5' 4 (1.626 m) LMP (LMP Unknown) SpO2 98% BMI 29.52 kg/m?? OB Status Hysterectomy Smoking Status Never BSA 1.88 m?? Physical Exam Constitutional: General: She is not in acute distress. Appearance: Normal appearance. Cardiovascular: Rate and Rhythm: Normal rate and regular rhythm. Heart sounds: Normal heart sounds. No murmur heard. Pulmonary: Effort: Pulmonary effort is normal. Breath sounds: Normal breath sounds. No wheezing or rhonchi. Abdominal: General: Bowel sounds are normal. Palpations: Abdomen is soft. There is no mass. Tenderness: There is no abdominal tenderness. There is no right CVA tenderness or left CVA tenderness. Neurological: General: No focal deficit present. Mental Status: She is alert and oriented to person, place, and time. Cranial Nerves: No cranial nerve deficit. Motor: No weakness. Gait: Gait normal. Psychiatric: Mood and Affect: Mood normal. Office Visit on 05/06/2025 Component Date Value Ref Range Status Color, UA 05/06/2025 Yellow Final Clarity, UA 05/06/2025 Cloudy Final Glucose, UA 05/06/2025 3+ 500+++ Final Bilirubin, UA 05/06/2025 Negative Final Ketones, UA 05/06/2025 Positive Final Trace Spec Grav, UA 05/06/2025 1.010 Final Blood, UA 05/06/2025 Negative Negative, None Detected Final pH, UA 05/06/2025 6.0 Final Protein, UA 05/06/2025 Negative Final Urobilinogen, UA 05/06/2025 0.2 Final Leukocytes, UA 05/06/2025 Negative Negative, Rare, Trace Final Nitrite, UA 05/06/2025 Negative Negative, None Detected Final QC Media Lot # 05/06/2025 [id number] Final Lot# Expiration Date 05/06/[id number] Final Hemoglobin A1C 05/06/2025 12.5 (A) 4.0 - 5.7 % Final QC Media Lot # 05/06/2025 [id number] Final Lot# Expiration Date 05/06/2025 [id number] Final Assessment/Plan Diagnoses and all orders for this visit: Acute UTI -treat empirically with macrobid as pt tolerated last treatment course without adverse reaction -send Ucx for sensitivities -advised contact [facility] if sx do not resolve Vaginal itching Probable candidiasis in setting of elevated BS -treat empirically with diflucan -trial terconazole cream for symptomatic relief -will have f/u with PCP as scheduled juliet for improvement in BS control -advised contact [facility] if sx do not resolve, she agrees with plans --Follow-up with PCP as scheduled or sooner prn-- Current Outpatient Medications: Alcohol Swabs 70 % pads, Use to test blood sugar 3 times daily, Disp: 100 each, Rfl: 0 baclofen (Lioresal) 10 MG tablet, Take 1 tablet (10 mg) by mouth if needed at bedtime for muscle spasms., Disp: 60 tablet, Rfl: 1 Blood Glucose Monitoring Suppl (FreeStyle [place] Lite) w/Device kit, USE DIRECTED, Disp: 1 kit,Rfl: 1 Blood Glucose Monitoring Suppl (FreeStyle [place] Lite) w/Device kit, Use to test blood sugar 3 times daily, Disp: 1 kit, Rfl: 0 busPIRone (Buspar) 5 MG tablet, Take 1 tablet (5 mg) by mouth 2 times daily., Disp: 60 tablet, Rfl:2 cholecalciferol (Vitamin D-3) 25 MCG (1000 UT) tablet, Take 1 tablet (25 mcg) by mouth Once per day., Disp: 90 tablet, Rfl: 1 clobetasol (Temovate) 0.05 % cream, Apply topically 2 times daily., Disp: 60 g, Rfl: 1 Diclofenac Sodium 1 % gel, Apply 2 g topically if needed in the morning, at noon, in the evening, and at bedtime (pain). APPLY 2 GRAMS TOPICALLY TO AFFECTED AREA(S) THREE TIMES DAILY, Disp: 150 g, Rfl: 3 ergocalciferol (Vitamin D2) 1.25 MG (28691 UT) capsule, TAKE 1 CAPSULE BY MOUTH ONCE A WEEK, Disp: , Rfl: fluconazole (Diflucan) 150 MG tablet, Take 1 tablet (150 mg) by mouth 1 (one) time for 1 dose., Disp: 1 tablet, Rfl: 0 fluticasone (Flonase) 50 MCG/ACT nasal spray, Administer 1-2 sprays into each nostril Once per day.Shake gently. Before first use, prime pump. After use, clean tip and replace cap., Disp: 16 g, Rfl:2 FREESTYLE LITE test strip, Use to test blood sugar 3 times daily, Disp: 100 each, Rfl: 12 glucose (Glutose) 40 % gel oral gel, Take 15 g by mouth if needed for low blood sugar., Disp: 60 g,Rfl: 3 glucose blood (FREESTYLE LITE) test strip, USE 1 STRIP TO CHECK GLUCOSE THREE TIMES DAILY, Disp: 100 each, Rfl: 5 Lancets misc, Use to test blood sugar 3 times daily, Disp: 100 each, Rfl: 0 Lidocaine 5 % cream, Apply topically bid, Disp: 30 g, Rfl: 3 metFORMIN (Glucophage) 1000 MG tablet, TAKE 1 TABLET BY MOUTH EVERY MORNING AND EVERY EVENING WITH MEAL, Disp: 180 tablet, Rfl: 3 nitrofurantoin, macrocrystal-monohydrate, (Macrobid) 100 MG capsule, Take 1 capsule (100 mg) by mouth 2 times daily for 5 days., Disp: 10 capsule, Rfl: 0 olmesartan (Benicar) 5 MG tablet, Take 1 tablet (5 mg) by mouth Once per day., Disp: 90 tablet, Rfl: 1 omeprazole (PriLOSEC) [address] capsule, Take 20 mg by mouth 2 times daily., Disp: , Rfl: pioglitazone (Actos) 15 MG tablet, Take 1 tablet (15 mg) by mouth Once per day., Disp: 90 tablet, Rfl: 1 terconazole (Terazol 7) 0.4 % vaginal cream, Insert 1 applicator into the vagina at bedtime for 7 days., Disp: 45 g, Rfl: 0 TRUEplus Lancets 33G misc, TEST BLOOD SUGAR THREE TIMES DAILY, Disp: 100 each, Rfl: 5 UltiCare Short Pen [place] 31G X 8 MM misc, USE DAILY DIRECTED, Disp: , Rfl: Yuvafem 10 MCG tablet vaginal tablet, INSERT 1 TABLET VAGINALLY 2 TIMES A WEEK - USE VAGINALLY 2X PER WEEK SAT/, Disp: , Rfl: Scribe Attestation: Ori Mancilla, am serving as a scribe to document services personally performed by Dari Cruz, based on the patient's response to questions by provider and provider's statements to me. 05/06/25 12:42 PM Physicians Attestation: Dari Mancilla DO, have reviewed the information by the scribe, Ori Vieira, for accuracy and agree with its content. documented in this encounter Plan of Treatment Upcoming Encounters Date Type Department Care Team (Late st Contact Info) Description 05/14/2025 11:15 AM EST Office Visit [facility] [address] [place] [address] Rosemary Santiago, PAN WASHER HAND [address] [place] [address] Scheduled Orders Name Type Priority Associated Diagnoses Orde r Schedule Culture, Urine, Routine Microbiology Routine Acute UTI Expected: 05/06/2025 (Approximate), Expires: 05/06/2026 Bacterial Vaginosis Panel Microbiology Routine Vaginal itching Ordered: 05/06/2025 Chlamydia/N. Gonorrhoeae RNA, TMA, Vaginal Microbiology Routine Vaginal itching Ordered: 05/06/2025 documented as of this encounter Goals Goal Patient Goal Type Associated Problems Recent Progress Patient-Stated? Author Help patients manage their type 2 diabetes Care Plan Help patients manage their type 2 diabetes Dari Castillo DO Weekly blood pressure task Care Plan Weekly blood pressure task No Dari Pritchard DO Help patients manage their type 2 diabetes Care Plan Help patients manage their type 2 diabetes No Dari Pritchard DO Patient has diabetic eye disease Care Plan Patient has diabetic eye disease No Dari Pritchard DO Help patients manage their type 2 diabetes Care Plan Help patients manage their type 2 diabetes Dari Castillo DO Patient has chronic kidney disease Care Plan Patient has chronic kidney disease No Dari Pritchard DO Weekly blood pressure task Care Plan Weekly blood pressure task No Dari Pritchard DO Weekly blood pressure task Care Plan Weekly blood pressure task No Dari Pritchard DO Patient has diabetic eye disease Care Plan Patient has diabetic eye disease No Dari Pritchard DO Patient has diabetic eye disease Care Plan Patient has diabetic eye disease No Dari Pritchard DO Patient has chronic kidney disease Care Plan Patient has chronic kidney disease No Dari Pritchard DO Patient has chronic kidney disease Care Plan Patient has chronic kidney disease No Dari Pritchard DO documented as of this encounter Procedures Procedure Name Priority Date/Time Associated Diagnosis Comments POCT GLYCATED HEMOGLOBIN, TOTAL Routine 05/06/2025 11:54 AM EST Acute UTI POCT URINALYSIS DIPSTICK Routine 05/06/2025 11:29 AM EST Acute UTI documented in this encounter Results * (ABNORMAL) POCT Hgb A1c (05/06/2025 11:54 AM EST) Hemoglobin A1C 12.5(A) 4.0 - 5.7 % QC Media Lot # [id number] Lot# Expiration Date Blood 05/06/2025 11:5 4 AM EST Dari Francheska ATKINS POINT OF CARE TEST ENTER/AVINASH T ORDERABLES Final Result * POCT Urinalysis (05/06/2025 11:29 AM EST) Color, UA Yellow Clarity, UA Cloudy Glucose, UA 3+ 500+++ Bilirubin, UA Negative Ketones, UA Positive Comment:Trace Spec Grav, UA 1.010 Blood, UA Negative Negative, None Detected pH, UA 6.0 Protein, UA Negative Urobilinogen, UA 0.2 Leukocytes, UA Negative Negative, Rare, Trace Nitrite, UA Negative Negative, None Detected QC Media Lot # [id number] Lot# Expiration Date Urine (Urine, Random) 05/06/2025 11:29 AM EST Dari Francheska ATKINS POINT OF CARE TEST ENTER/AVINASH T ORDERABLES Final Result documented in this encounter Visit Diagnoses Diagnosis Acute UTI- Primary Urinary tract infection, site not specified Vaginal itching Pruritus of genital organs documented in this encounter Additional Health Concerns Active Problems Noted Date Diagnosed Date Help patients manage their type 2 diabetes 05/06 Weekly blood pressure task 05/06/2025 Help patients manage their type 2 diabetes 05/06 Patient has diabetic eye disease 05/06/2025 Help patients manage their type 2 diabetes 05/06 Patient has chronic kidney disease 05/06/2025 Weekly blood pressure task 05/06/2025 Weekly blood pressure task 05/06/2025 Patient has diabetic eye disease 05/06/2025 Patient has diabetic eye disease 05/06/2025 Patient has chronic kidney disease 05/06/2025 Patient has chronic kidney disease 05/06/2025 Assessment Noted Time PHQ-9 Depression Total Score: 7 11/14/19 2:15 PM EDT documented as of this encounter Care Teams Animal Impersonator Relationship Specialty Start Date End Date Rosemary Santiago FNP [address] [place] [id number] PCP - General Family Medicine 02/19/23 Jules Hines, DINESH [address] [place] [address] Registered Nurse Family Medicine 03/16/25 Ted Hood 03/16/25 documented as of this encounter
--- OUTSIDE RECORDS SUMMARY | 2025-05-06 18:50 | XMS_ITS | Clinical Summary ---
Author Organization [facility] Address [address] [place] [address] Phone Care Team Providers Care Rac Specialist Name Role Phone Brandon Lea MD Primary Care Provider [phone] Allergies Active Allergy Reactions Criticality Noted Date [...] HTN (hypertension) 08/19/2009 Type 2 diabetes mellitus ([facility] V24, [facility] V 28) 06/21/2009 Overview [...] statin prescribed to her in 2008 Immunizations Immunization Administration Dates Next Due Influenza trivalent, with pr eservative (Fluzone; Afluria) 6mo and older 05/31/2014,04/08/2013,03/03/2012,03/07,05/07/2007,04/22/2006 Influenza, Unspecified 07/26/2015 Pneumococcal polysaccharide 23 valent (Pneumovax 23) 2yo and older 11/03/2013 Tdap Tetanus diptheria acell ular pertussis (Boostrix; Adacel) 7yo and older 10/10/2006 Surgical History Surgery Date Site/Laterality Comments TUBAL LIGATION PROCEDURE: HISTORICAL TUBAL LIGATION ESOPHAGOGASTRODUODENOSCOPY 03/06/2010 PROCEDURE: VT EGD TRANSORAL BIOPSY SINGLE/MULTIPLE; COMMENT: Normal esophagus, mild gastritis-biopsy:chronic gastritis(Hpylori+), nl duodenum-biopsy:Nl COLONOSCOPY W/ BIOPSIES 03/06/2010 PROCEDURE: VT COLONOSCOPY STOMA W/BIOPSY SINGLE/MULTIPLE; COMMENT: Up to [...] Years Used Date Smoking Tobacco: Former Cigarettes 0 Q uit: 06/24/1990 Smokeless Tobacco: Former Alcohol [...] Annual GFR (Glomerular Filtration Rate) 01/20/2017 01/21/2016 Colorectal Cancer Screening: Colonoscopy 03/06/2020 03/06/2010 RSV Immunization Adult Patients (1 - Risk 50-74 years 1-dose series) 2024 Zoster Vaccines (1 of 2) 2024 Cholesterol Screening (Lipid Panel) 05/27/2024 01/21/2016 Diabetes: Annual Urine Albumin-Creatinine Ratio (uACR) 05/27/2024 01/21/2016 Diabetes: Blood Sugar Control Test (HGBA1C) 05/27/2024 01/21/2016 Hypertension/CHF/CAD Annual BMP Blood Test 05/27/2024 01/21/2016 Social Influencers of Health Screening 05/27/2024 Depression Screening 06/24/2024 COVID-19 Vaccine ( season) 2025 Influenza Vaccine (#1) 2025 6, 05/31/2014, 04/08/2013, Additional history exists HIV Screening [...] * Urine Albumin Creatinine Ratio (01/21/2016) Pathologist [facility] Urine Albumin Creatinine Ratio abstracted [facility] Provider HEALTH MAINTENANCE Final Result * Annual BMP Blood Test (01/21/2016) Pathologist [facility] Annual BMP Blood Test abstracted [facility] Provider HEALTH MAINTENANCE Final Result * (ABNORMAL) Hemoglobin A1c (01/21/2016) [facility] Hemoglobin A1C 8.6(A) 4.0 - 6.0 % Blood Venous blood specimen / Unknown [facility] Provider LAB BLOOD ORDERABLES Nhung l Result * (ABNORMAL) Lipid panel (01/21/2016) [facility] LDL/HDL Ratio 4 0 - 4 Triglycerides 227(A) 0 - 150 mg/dL Cholesterol 194 0 - 200 mg/dL HDL 46 >=40 mg/dL LDL Cholesterol 103(A) 0 - 100 mg/dL Blood Venous blood specimen / Unknown [facility] Provider LAB BLOOD ORDERABLES Nhung l Result * Hepatitis C Screening (04/15/2012) [facility] Hepatitis C Screening abstracted [facility] Provider HEALTH MAINTENANCE Final Result * Pap Smear (05/16/2010) [facility] Pap smear abstracted, no interpretation Result [facility] Provider HEALTH MAINTENANCE Final Result * Colonoscopy (03/06/2010) [facility] Colonoscopy abstracted, no interpretation Anatomical Region Laterality Modality Other [facility] Provider HEALTH MAINTENANCE Final Result * HIV Screening (09/20/2006) [facility] HIV Screening abstracted [facility] Provider HEALTH MAINTENANCE Final Result from Last 3 Months or Most Recently Relevant to Health Maintenance Insurance [address] [place] [address] MEDICA[place] Care Teams Rac Specialist Relationship Specialty Start Date End Date Brandon Lea MD [address] [facility] [address] [place] [address] PCP - General 11/23/22
--- OUTSIDE RECORDS SUMMARY | 2025-05-06 18:50 | XMS_ITS | Encounter Summary ---
Author Organization [employer] Address 75 [facility] 7t [place] [address] Care Team Providers Care Business Operations Specialist Name Role Phone JeanineRosemary banks MANAGER FRONT Primary Care Provider [phone] Jules Hines RN Unavailable [phone] Ted [place] Unavailable Encounter Details Date Type Department Care Team (Latest Contact Info) Description 05/06/2025 Travel Social History Tobacco Use Types Packs/Day [...] Description 05/14/2025 11:15 AM EST Office Visit [facility] MED & PEDS [address] [place] [address] Rosemary Santiago FNP [address] [place] [address] documented as of this encounter Goals Goal Patient Goal Type Associated Problems Recent Progress Patient-Stated? Author Help patients manage their type 2 diabetes Care Plan Help patients manage their type 2 diabetes No Dari Pritchard DO Weekly blood pressure [...] diabetes No Dari Pritchard DO Patient has chronic kidney disease Care Plan Patient has chronic kidney disease No Dari Pritchard DO Weekly blood pressure task Care Plan Weekly blood pressure task Dari Castillo DO Weekly blood pressure task [...] Pritchard DO documented as of this encounter Visit Diagnoses Not on filedocumented in this encounter Additional Health Concerns Active [...] documented as of this encounter Care Teams Business Operations Specialist Relationship Specialty Start Date End Date Rosemary Santiago FNP [address] [place] [address] PCP - General Family Medicine 02/19/23 Jules Hines, DINESH [address] [place] [address] Registered Nurse Family Medicine 03/16/25 Ted [place] 03/16/25 documented as of this encounter
--- OUTSIDE RECORDS SUMMARY | 2025-05-06 18:50 | XMS_ITS | Encounter Summary ---
Author Organization [employer] Address 75 [facility] 7t [place] [address] Care Team Providers Care Manufacturer'S Representative Name Role Phone Karen Burns MD Primary Care Provider + Rosemary Santiago Primary Care Provider [phone] Ted [place] Unavailable Jules Hines RN Unavailable [phone] Ted [place] Unavailable Encounter Details Date Type Department Care Team (Late st Contact Info) Description 06/06/2022 Orders Only [facility] [address] [place] [address] Barb Goodwin LPN Social History Tobacco Use [...] Description 05/14/2025 11:15 AM EST Office Visit [facility] & PEDS [address] [place], [place] [phone] Rosemary Santiago FNP [address] [place], [place] [phone] documented as of this encounter Visit Diagnoses Not on filedocumented in this encounter Care Teams Manufacturer'S Representative Relationship Specialty Start Date End Date Karen Burns MD [address] [place] [address] PCP - General Family Medicine 04/21/19 02/18/23 Rosemary Santiago FNP [address] [place] [address] PCP - General Family Medicine 02/19/23 Ted [place] Community Health Worker 01/23/24 Jules Hines, DINESH [address] [place] [address] Registered Nurse Family Medicine 03/16/25 Ted [place] 03/16/25 documented as of this encounter
--- OUTSIDE RECORDS SUMMARY | 2025-05-06 18:50 | XMS_ITS | Encounter Summary ---
Author Organization [employer] Address 75 [facility] 7t [place] [address] Care Team Providers Care Forestry Aid Name Role Phone Rosemary Santiago IT CONSULTING DIRECTOR Primary Care Provider [phone] Jules Hines RN Unavailable [phone] Ted [place] Unavailable Reason for Referral * Consultation (Routine) - Canceled Specialty Diagnoses / Procedures Referred By Contac t Referred To Contact Pharmacy Diagnoses Type 2 diabetes mellitus with hyperglycemia, without long-term current use of insulin (HCC) Clara Holloway MD [address] [place] [address] Phone: tel: fax: Referral ID Status Reason Start Date Expiration Date V isits Requested Visits Authorized [id number] Canceled Consult and Treat 07/15/2024 07/15/2025 6 0 Encounter Details Date Type Department Care Team (Late st Contact Info) Description 07/15/2024 Orders Only [facility] [address] [place] [address] [phone] Clara Holloway MD [address] [place], [place] [phone] Type 2 diabetes mellitus with hyperglycemia, without [...] Description 05/14/2025 11:15 AM EST Office Visit [facility]EDS [address] [place] [address] Rosemary Santiago FNP [address] [place] [address] Scheduled Referrals Name Type Priority Associated Diagnoses Orde r Schedule Referral to Pharmacy CDTM Outpatient Referral Routine Type 2 diabetes mellitus with hyperglycemia, without long-term current use of insulin ([facility]/HCC) Ordered: 07/15/2024 documented as of this encounter Visit Diagnoses Diagnosis Type 2 diabetes mellitus with hyperglycemia, without long-term current use of insulin ([facility])- Primary documented in this encounter Additional Health Concerns Assessment Noted Time PHQ-9 Depression Total Score: 4 09/27/19 24 10:48 AM EDT documented as of this encounter Care Teams Forestry Aid Relationship Specialty Start Date End Date Rosemary Santiago FNP [address] [place] [address] PCP - General Family Medicine 02/19/23 Jules Hines, DINESH [address] [place] [address] Registered Nurse Family Medicine 03/16/25 Ted [place] 03/16/25 documented as of this encounter
--- OUTSIDE RECORDS SUMMARY | 2025-05-06 18:50 | XMS_ITS | Encounter Summary ---
Author Organization [employer] Address 75 [facility] 7t [place] [address] Care Team Providers Care Street Sweeper Name Role Phone Rosemary Santiago Primary Care Provider [phone] Ted [place] Unavailable Jules Hines RN Unavailable [phone] Ted [place] Unavailable Reason for Visit * Reason Onset Date Comments Nurse Triage 06/23/2024 Encounter Details Date Type Department Care Team (Late st Contact Info) Description 06/23/2024 Telephone [facility] MED[facility] [address] [place] [address] Rosemary Santiago FNP [address] [place] [address] Nurse Triage Social History Tobacco Use Types [...] Reason: Caller denied all higher acuity questions Angolan Speaker (accepted Deputy Fire Marshal) Please contact pt at [phone]. documented in this encounter Plan of Treatment Upcoming Encounters Date Type Department Care Team (Late st Contact Info) Description 05/14/2025 11:15 AM EST Office Visit [facility] MED & PEDS [address] [place] [address] Rosemary Santiago FNP [address] [place] [address] documented as of this encounter Visit Diagnoses Not on filedocumented in this encounter Additional Health Concerns Assessment Noted Time PHQ-9 Depression Total Score: 4 09/27/19 24 10:48 AM EDT documented as of this encounter Care Teams Street Sweeper Relationship Specialty Start Date End Date Rosemary Santiago FNP [address] [place] [address] PCP - General Family Medicine 02/19/23 Ted [place] Community Health Worker 01/23/24 Jules Hines, RN [address] [place] [address] Registered Nurse Family Medicine 03/16/25 Ted [place] 03/16/25 documented as of this encounter
--- OUTSIDE RECORDS SUMMARY | 2025-05-06 18:50 | XMS_ITS | Encounter Summary ---
Author Organization [employer] Address 75 [facility] 7t [place] [address] Care Team Providers Care Railway Switchman Name Role Phone Rosemary Santiago Primary Care Provider [phone] Ted [place] Unavailable Jules Hines RN Unavailable [phone] Ted [place] Unavailable Reason for Visit * Reason Onset Date Comments Referral 04/08/2023 Encounter Details Date Type Department Care Team ([facility] st Contact Info) Description 04/08/2023 Telephone [facility] MED & PEDS [address] [place], [place] [phone] Rosemary Santiago FNP [address] [place], [place] [phone] Referral Social History Tobacco Use Types Packs/Day [...] Description 05/14/2025 11:15 AM EST Office Visit [facility] & PEDS [address] [place] [address] Rosemary Santiago FNP [address] [place] [address] documented as of this encounter Visit Diagnoses Not on filedocumented in this encounter Care Teams Railway Switchman Relationship Specialty Start Date End Date Rosemary Santiago FNP [address] [place] [address] PCP - General Family Medicine 02/19/23 Ted [place] Community Health Worker 01/23/24 Jules Hines, RN [address] [place], [place] Registered Nurse Family Medicine 03/16/25 Ted [place] 03/16/25 documented as of this encounter
--- OUTSIDE RECORDS SUMMARY | 2025-05-06 18:50 | XMS_ITS | Encounter Summary ---
Author Organization [employer] Address 75 [facility] 7t [place] [address] Care Team Providers Care Pen Tender Name Role Phone Rosemary Santiago RED HAT LINUX ENGINEER Primary Care Provider [phone] Jules Hines RN Unavailable [phone] Ted [place] Unavailable Reason for Referral * Consultation (Routine) - Canceled Specialty Diagnoses / Procedures Referred By Contac t Referred To Contact Pharmacy Diagnoses Type 2 diabetes mellitus with hyperglycemia, without long-term current use of insulin (HCC) Emperatriz Álvarez MD [address] [place] [address] Phone: tel: fax: Referral ID Status Reason Start Date Expiration Date V isits Requested Visits Authorized [id number] Canceled Consult and Treat 07/24/2024 07/24/2025 6 6 Encounter Details Date Type Department Care Team (Late st Contact Info) Description 07/24/2024 Orders Only [facility] PEDS [address] [place] [address] Emperatriz Álvarez MD [address] [place] [address] Type 2 diabetes mellitus with hyperglycemia, without [...] Upcoming Encounters Date Type Department Care Team ([facility] st Contact Info) Description 05/14/2025 11:15 AM EST Office Visit [facility] MED & PEDS [address] [place] [address] Rosemary Santiago FNP [address] [place] [address] Scheduled Referrals Name Type Priority Associated Diagnoses Orde r Schedule Referral to Pharmacy CD Outpatient Referral Routine Type 2 diabetes mellitus with hyperglycemia, without long-term current use of insulin ([facility]/HCC) Ordered: 07/24/2024 documented as of this encounter Visit Diagnoses Diagnosis Type 2 diabetes mellitus with hyperglycemia, without long-term current use of insulin (HCC)- Primary documented in this encounter Additional Health Concerns Assessment Noted Time PHQ-9 Depression Total Score: 4 09/27/19 24 10:48 AM EDT documented as of this encounter Care Teams Pen Tender Relationship Specialty Start Date End Date Rosemary Santiago FNP [address] [place] [address] PCP - General Family Medicine 02/19/23 Jules Hines, DINESH [address] [place] [address] Registered Nurse Family Medicine 03/16/25 Ted [place] 03/16/25 documented as of this encounter
--- OUTSIDE RECORDS SUMMARY | 2025-05-06 18:50 | XMS_ITS ---
Author Organization [employer] Address 75 [facility] 7t [place] [address] Care Team Providers Care Hat Finishing Materials Preparer Name Role Phone Rosemary Santiago Primary Care Provider [phone] Jules Hines RN Unavailable [phone] Ted [place] Unavailable CM Complex Status:Outreach In Progress (Enrolling) Start date:03/16/2025 Enrollment reason:Referred by provider Overview Provider Referral- 49 y/o F with uncontrolled T2Dm and significant stressors around housing. Referral to CM team, thank you. Case Team Name Relationship Phone Jules Hines RN(Responsible Staff) Registered Dennis gorman [phone] Continued Care and Services Coordination
--- OUTSIDE RECORDS SUMMARY | 2025-05-06 18:50 | XMS_ITS | Encounter Summary ---
Author Organization [employer] Address 75 [facility] 7t [place] [address] Care Team Providers Care Concrete Sculptor Name Role Phone Karen Burns MD Primary Care Provider + Rosemary Santiago Primary Care Provider [phone] Ted [place] Unavailable Jules Hines RN Unavailable [phone] Ted [place] Unavailable Reason for Visit * Reason Onset Date Comments Appointment Request 10/23/2022 Encounter Details Date Type Department Care Team (Late st Contact Info) Description 10/23/2022 Telephone [facility] MEDICINE [address] [place], [place] [phone] Karen Burns MD [address] [place], [place] [phone] Appointment Request Social History Tobacco Use Types [...] Miscellaneous Notes * Telephone Encounter - Eddie Baxter - 10/23/2022 9:41 AM EDT Tc from pt requesting to r/s appt 10/19/2022 for Follow up with provider. Please contact pt at [phone] documented in this encounter Plan of Treatment Upcoming Encounters Date Type Department Care Team (Late st Contact Info) Description 05/14/2025 11:15 AM EST Office Visit [facility] MED & PEDS [address] [place] [address] Rosemary Santiago FNP 505 [place] [address] documented as of this encounter Visit Diagnoses Not on filedocumented in this encounter Care Teams Concrete Sculptor Relationship Specialty Start Date End Date Karen Burns MD [address] [place] [address] PCP - General Family Medicine 04/21/19 02/18/23 Rosemary Santiago FNP [address] [place] [address] PCP - General Family Medicine 02/19/23 Ted [place] Community Health Worker 01/23/24 Jules Hines, DINESH [address] [place] [address] Registered Nurse Family Medicine 03/16/25 Ted [place] 03/16/25 documented as of this encounter
--- OUTSIDE RECORDS SUMMARY | 2025-05-06 18:50 | XMS_ITS | Clinical Summary ---
Author Organization [employer] Address [address] [facility] [address] [place] [address] Care Team Providers Care Material Spreader Name Role Phone Pamela Rosemary CIGARETTE FILTER INSPECTOR Primary Care Provider [phone] Jules Hines RN Unavailable [phone] Ted Hood Unavailable Allergies Active Allergy Reactions Criticality Noted Date [...] 10/30/2021 Medications ergocalciferol (Vitamin D2) 1.25 MG (44275 UT) capsule TAKE 1 CAPSULE BY MOUTH ONCE A WEEK 2 Active Yuvafem 10 MCG tablet vaginal tablet INSERT 1 TABLET VAGINALLY 2 TIMES A WEEK -USE VAGINALLY 2X PER WEEK SAT/UR 2 Active UltiCare Short Pen [place] 31G X 8 MM misc USE DAILY DIRECTED 2 Active glucose (Glutose) 40 % gel oral gelIndications:T ype 2 diabetes mellitus with hyperglycemia, without long-term current use of insulin ([facility]) Take 15 g by mouth if [...] 3 4 Active Blood Glucose Monitoring Suppl (TicketLabsyle [place] Lite) w/Device kit USE DIRECTED 1 kit 1 4 Active TRUEplus Lancets 33G miscIndications: Type 2 diabetes mellitus with hyperglycemia, without long-term current use of insulin ([facility]) TEST BLOOD SUGAR THREE TIMES DAILY [...] hyperglycemia, without long-term current use of insulin ([facility]) Take 1 tablet (5 mg) by [...] hyperglycemia, without long-term current use of insulin ([facility]) USE 1 STRIP TO CHECK GLUCOSE THREE TIMES DAILY 100 each 5 5 Active baclofen (Lioresal) 10 MG tabletIndication s:Bilateral thoracic back pain, unspecified chronicity Take 1 tablet (10 mg) by mouth if needed at bedtime for muscle spasms. 60 tablet 1 5 Active metFORMIN (Glucophage) 1000 MG tabletIndication s:Type 2 diabetes mellitus with hyperglycemia, without long-term current use of insulin ([facility]) TAKE 1 TABLET BY MOUTH EVERY MORNING AND EVERY EVENING WITH MEAL 180 tablet 3 5 Active pioglitazone (Actos) 15 MG tabletIndication s:Type 2 diabetes mellitus with hyperglycemia, without long-term current use of insulin ([facility]) Take 1 tablet (15 mg) by mouth Once per day. 90 tablet 1 5 03/12/20 26 Active FREESTYLE LITE test stripIndications :Type 2 diabetes mellitus with hyperglycemia, without long-term current use of insulin ([facility]) Use to test blood sugar 3 times daily 100 each 12 5 03/12/20 26 Active Lancets miscIndications: Type 2 diabetes mellitus with hyperglycemia, without long-term current use of insulin ([facility]) Use to test blood sugar 3 times daily 100 each 5 Active Alcohol Swabs 70 % padsIndications: Type 2 diabetes mellitus with hyperglycemia, without long-term current use of insulin ([facility]) Use to test blood sugar 3 times daily 100 each 5 Active Blood Glucose Monitoring Suppl (FreeStyle [place] Lite) w/Device kitIndications:T ype 2 diabetes mellitus with hyperglycemia, without long-term current use of insulin ([facility]) Use to test blood sugar 3 times daily 1 kit 5 Active nitrofurantoin, macrocrystal-mon ohydrate, (Macrobid) 100 MG capsule Take 1 capsule (100 mg) by mouth 2 times daily for 5 days. 10 capsule 05/06/2025 5:20 PM EST 5 05/11/20 25 Active terconazole (Terazol 7) 0.4 % vaginal cream Insert 1 applicator into the vagina at bedtime for 7 days. 45 g 05/06/2025 5:20 PM EST 5 05/13/20 25 Active fluconazole (Diflucan) 150 MG tablet Take 1 tablet (150 mg) by mouth 1 (one) time for 1 dose. 1 tablet 05/06/2025 5:20 PM EST 05/07/20 25 Active Active Problems Patient Care Coordination No [...] of left foot 04/19/2024 Assessment & Plan (03/14/2025 7:05 PM EDT): - previously debrided and tx by Dr. Jalloh (last available consult from May 2023) - additional tx required, updated referral placed to podiatry on 04/19/24: Dr. Connolly - Referral to podiatry re-sent on 03/12/25 Assessment & Plan (06/21/2024 10:05 PM EST): [...] stress female 12/29/2023 Overview (12/29/2023): Following with [facility]. During consult in September 2023, plan to start vaginal estrogen and try kegals Healthcare maintenance 06/08/2023 Overview (06/21/2024): Mammogram: 07/30/23 BIRADS 2 Colonoscopy: Cologuard ordered 06/08/24 Pap: scheduled 06/30/24 with [facility] CNM Chronic bilateral low back pain without sciatica 12/18/2022 Overview (03/14/2025): - November 2024: XR thoracic spine - Mild degenerative disc disease in the mid to upper thoracic spine. Assessment & Plan (03/14/2025 6:57 PM EDT): Cont with symptomatic management, No red flag symptoms Cont following with chiropractic Previously referred to physical therapy Assessment & Plan (02/19/2023 11:12 AM EDT): No red flag symptoms Referral to physical therapy location: [facility] in [facility] Assessment & Plan (12/18/2022 1:18 PM EDT): S/p fall a few weeks ago referral to [facility] ([facility]?) Use tylenol PRN Peroneal neuropathy 06/14/2022 Overview (07/30/2022): NCS at [facility] on 07/23/19 Assessment & Plan (07/30/2022 12:41 PM EST): Sxs apparently worsened by Lantus (?), patient self dc'd it. 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 Reviewed med safety and SE Previous med trials: - Hydroxyzine 10mg QID PRN - BZO (rec against middle or intermediate school principal use) Assessment & Plan (04/19/2024 4:41 PM EDT): Start buspirone 5mg BID. Reviewed med safety and SE Previous med trials: - Hydroxyzine 10mg QID PRN - BZO (rec against middle or intermediate school principal use) Arthritis of right ankle 06/14/2022 Benign [...] podiatry, she was going to podiatry in [place] but missed appointments Reminded her to cotton picker x-rays from 2018 Assessment & Plan (07/30/2022 12:51 PM EST): FU with podiatry. Patient will call for appt. Cirrhosis of liver (CMS/HCC) 06/14/2022 Overview (08/27/2023): Compensated cirrhosis likely due to non-alcoholic fatty liver disease given hx of T2DM Meld score 7 Following with [facility] GI (Dr. Espinoza) - last consult December 2022 Scheduled for upper endoscopy to screen for varices Routine Education: advised to avoid alcohol, maintain healthy weight (goal to lose 10% body weight) HCC Surveillance: through GI, reports last completed Jan 2023. Assessment & Plan (09/29/2023 11:39 AM EDT): Pt currently in process of transitioning to [facility] GI, lab work to be completed next appt, as well as discuss ordering abd US pending initial consult with new GI provider Assessment & Plan (08/27/2023 6:04 PM EST): Referral to [facility] placed 08/27/23 as more convenient location Synovial cyst of hand 06/14/2022 Nonalcoholic steatohepatitis 06/14/2022 Assessment & Plan (12/18/2022 1:22 PM EDT): Pt had fatty liver followed by GI. Counseled for her to reschedule appointment with GI Obstructive sleep apnea syndrome 06/14/2022 Overview (02/19/2023): Mild. Sleep study at [facility] on 11/10/[address] Burns Assessment & Plan (12/18/2022 1:17 PM EDT): sleep study done on 2020, she has not receieved CPAP yet and there hasn't been a close follow up with DME supplier I will discuss with wrapper caser who will find out with supplier about [...] 06/14/2022 Type 2 diabetes mellitus wit h retinopathy, without long-term current use of insulin 06/14/2022 Overview (03/14/2025): A1c: uncontrolled Lab Results Component Value Date HGBA1C 12.5 (A) 03/12/2025 HGBA1C 10.6 (A) 09/25/2024 HGBA1C 11.8 (A) 04/17/2024 HGBA1C 10.0 08/08/2022 HGBA1C 9.0 (H) 12/21/2020 HGBA1C 8.2 (H) 06/27/2020 Microalbumin: WNL November 2022. Ordered 09/2024 Eye exam: 04/23/24 at [facility] Eye Care: severe non-proliferative diabetic retinopathy with mild macular edema bilaterally. Foot exam: discuss at follow up Dental: discuss at follow up PNA: due (declined) Tdap/Td: due (declined) ACEi/ARB: yes - lisinopril Statin: recommend mod intensity statin pending event marketing intern results ASA: no Lab Results Component Value Date CHOL 195 09/23/2023 TRIG 156 (H) 09/23/2023 TRIG 157 (H) 06/06/2022 HDL 46 09/23/2023 LDLCHOLCAL 118 (H) 09/23/2023 Lifestyle: Encouraged regular movement and aerobic exercise for improved glycemic control Encouraged daily foot checks Encouraged lean protein snacks and to avoid foods high in sugar and simple carbohydrates Medications: START Actos 15mg daily. Reviewed med safety and SE Metformin 1000mg BID (Brand: Keyanna [facility] [address]-84) --> not currently taking, although able to tolerated Reports previous SE/intolerance/rxn to the following medications: metformin (certain brand only), glyburide, glipizide, lantus, trulicity, tradjenta, Invokana, Jardiance, Amaryl, semaglutide (injectable and oral), tirzepatide (encouraged to f/up regarding allergy testing) Treatment Goals: A1c goal: <7% FBG goal: <130 2 hour post prandial goal: <180 Assessment & Plan (09/28/2024 4:21 PM EDT): - Referred to [facility] CDE and indirect sales representative September 2023, missed multiple appts - Discussed adverse sequela of poorly controlled BG and importance of improving A1c together - Plan: event marketing intern consult, nutrition modifications, increase physical activity - Declines interest in CDE TM referral as of September 2024 Assessment & Plan (04/19/2024 4:51 PM EDT): - Referred to [facility] CDE and indirect sales representative September 2023, missed multiple appts - Discussed adverse sequela of poorly controlled BG and importance of improving A1c together - Plan: event marketing intern consult, nutrition modifications, increase physical activity Assessment & Plan (12/29/2023 4:22 PM EDT): - Referral to [facility] CDE and indirect sales representative placed in September 2023, pt missed appt and would like to reschedule. Will send message to team. - Life stressors including housing situation likely contributing to difficulty with BG control. Interested in establishing with CM, referral placed 12/29/23. - Discussed adverse sequela of poorly controlled BG and importance of improving A1c together Assessment & Plan (09/29/2023 11:32 AM EDT): Referral to [facility] CDE and indirect sales representative Pt requesting to trial injectable Ozempic. Previous trial of oral formulation and did not tolerate GI SE. Denies any swelling or anaphylactic rxn. Sister is currently using Ozempic w/o SE. Will initiate prescription/referral Assessment & Plan (02/19/2023 10:31 AM EDT): -Referral to event marketing intern Jan 2023 for history of multiple reactions [...] Last available consult note from Vascular 04/25/2020 ([facility]). Interested in re-establishing with vascular - referral placed Jan 2023 Encouraged to cont with compression stockings Assessment & Plan (07/30/2022 12:50 PM EST): Counseled to wear compression stockings. 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 Impression: pathology results revealed [...] Encounters Date Type Department Care Team Description 05/06/2025 11:20 AM EST Office Visit [facility] [address] [place] [address] [phone] Dari Pritchard DO Acute UTI (Primary Dx); Vaginal itching 05/06/2025 Travel 04/28/2025 Patient Outreach [facility] [address] [place] [address] Rosemary Santiago FNP Care Management (C3CM- Initial assessment/enrollmen t/LVM) 04/20/2025 Patient Outreach [facility] [address] [place], [place] [phone] Rosemary Santiago FNP Care Coordination (C3CM/CHW Ted Erwin, rescheduled initial assessment ) 04/19/2025 Patient Outreach [facility] [address] [place] [address] Rosemary Santiago FNP 04/05/[address] [address] Rosemary Santiago FNP 03/25/2025 Orders Only [facility] [address] [place] [address] Halima Mays MD Type 2 diabetes mellitus with hyperglycemia, without long-term current use of insulin (HCC) (Primary Dx) 03/25/2025 Telephone [facility] [address] [place] [address] Emma Michael, PharmD 03/23/2025 Patient Outreach [address] [address] Rosemary Santiago FNP Care Coordination (C3CM/ABNER Hood, initial assessment scheduled ) 03/16/2025 Patient Outreach [address] [address] Rosemary Santiago FNP Care Coordination (C3CM/ABNER Hood, Initial outreach_lvm ) 03/16/2025 Patient Outreach [address] [address] Rosemary Santiago, CIGARETTE FILTER INSPECTOR Care Coordination (C3CM/ABNER Hood, Chart review ) 03/16/2025 Patient Outreach [facility] [address] [place] [address] Rosemary Santiago FNP Care Coordination (C3CM- chart review) 03/16/2025 Patient Outreach [address] [address] Rosemary Santiago FNP 03/15/2025 Results Follow-Up [facility] [address] [place] [address] Rosemary Santiago FNP Respiratory Viral Panel PCR 03/15/[address] [address] Rosemary Santiago FNP 03/12/2025 10:00 AM EDT Office Visit [facility] [address] [place] [address] Rosemary Santiago FNP Type 2 diabetes mellitus with hyperglycemia, without long-term current use of insulin ([facility]) (Primary Dx); Dietary counseling; Exercise counseling; Left foot pain; Chronic bilateral low back pain without sciatica; Housing instability; Acute cough; Plantar wart of left foot; Type 2 diabetes mellitus with retinopathy, without long-term current use of insulin, macular edema presence unspecified, unspecified laterality, unspecified retinopathy severity ([facility]/HCC) 03/12/2025 Orders Only [facility] [address] [place] [address] Rosemary Santiago FNP 03/12/2025 Travel from Last 3 Months Immunizations Immunization Administration [...] EST Inhaled Oxygen Concentration - - Weight 78 kg (172 lb) 03/12/2025 10:22 AM EDT Height 162.6 cm (5' 4 ) 05/06/2025 11:15 AM EST Body Mass Index 29.52 03/12/2025 10:22 AM EDT Plan of Treatment Upcoming Encounters Date Type Department Care Team ([facility] st Contact Info) Description 05/14/2025 11:15 AM EST Office Visit [facility] [address] [place] [address] Rosemary Santiago FNP [address] [place] [address] Health Maintenance Due Date Last Done Comments [...] 12/19/2023 12/18/2022, 08/08/2022, 06/06/2022, Additional history exists RSV Patients and Patients Aged 60 years or older (1 - Risk 50-74 years 1-dose series) 2024 Zoster Vaccines (1 of 2) 2024 Mammogram 07/30/2024 07/30/2023, 09/2019, 04/27/2020, Additional history exists Lipid Panel 09/22/2024 09/23/2023, 05/24, 06/27/2020 SDOH Screening 01/22/2025 01/23/2024 COVID-19 Vaccine (2 - season) 2025 02/21/2021 Influenza Vaccine (#1) 2025 , 04/23/2019, 04/10/2018, Additional history exists Dental Oral Exam 04/02/2025 09/30/2024 Dental Prophylaxis 04/02/2025 09/30/2024 Eye Exam 04/23/2025 04/23/2024, 03/26, 04/23/2024, Additional history exists Diabetes: Hemoglobin A1C 08/06/2025 025, 03/12/2025, 09/25/2024, Additional history exists Dental X-Ray: Bitewings 10/01/2025 09/30/2024 Depression Screening 11/13/2025 11/13/2024, 11/14/19 25 Disability Screening 03/12/2026 03/12/2025 Tobacco Screening 05/06/2026 05/06/2025 Dental X-Ray: Full Mouth 10/02/2027 09/30/2024 HPV/Cotest 06/30/2029 Pap Smear 06/30/2029 06/30/2024 HIV Screening Completed 06/06/2022 Hepatitis C Screening [...] on patient's age to complete this topic Goals Goal Patient Goal Type Associated Problems [...] chronic kidney disease No Dari Pritchard DO Procedures Procedure Name Priority Date/Time Associated Diagnosis Comments POCT GLYCATED HEMOGLOBIN, TOTAL Routine 05/06/2025 11:54 AM EST Acute UTI POCT URINALYSIS DIPSTICK Routine 05/06/2025 11:29 AM EST Acute UTI POCT GLUCOSE Routine 03/12/2025 11:19 AM EDT Type 2 diabetes mellitus with hyperglycemia, without long-term current use of insulin ([facility]) POCT GLYCATED HEMOGLOBIN, TOTAL Routine 03/12/2025 11:18 AM EDT Type 2 diabetes mellitus with hyperglycemia, without long-term current use of insulin ([facility]) RESPIRATORY VIRAL PANEL PCR Routine 03/12/2025 11:04 AM EDT PROPHYLAXIS - ADULT Routine 09/30/2024 9 :00 [...] hyperglycemia, without long-term current use of insulin ([facility]) BI MAMMOGRAM SCREENING TOMOSYNTHESIS BILATERAL Routine 07/30/2023 [...] to Health Maintenance Results * (ABNORMAL) POCT Hgb A1c (05/06/2025 11:54 AM EST) Only the most recent of2 resultswithin the time period is included. Hemoglobin A1C 12.5(A) 4.0 - 5.7 % QC [employer] Lot # [id number] Lot# Expiration Date 092,026 Blood 05/06/2025 11:5 4 AM EST Dari Pritchard DO POINT OF CARE TEST ENTER/AVINASH T ORDERABLES [...] Nitrite, UA Negative Negative, None Detected QC [employer] Lot # [id number] Lot# Expiration Date [id number] Urine (Urine, Random) 05/06/2025 11:29 AM EST Dari Pritchard DO POINT OF CARE TEST ENTER/AVINASH T ORDERABLES Final Result * (ABNORMAL) POCT Glucose (03/12/2025 11:19 AM EDT) Glucose Blood, POC 373(A) 60 - 200 mg/dL QC Media Lot # [id number] Lot# Expiration Date ,884 Comment:random Blood Capillary blood specimen / Unknown 03/12/2025 11:19 AM EDT Rosemary Santiago CIGARETTE FILTER INSPECTOR POINT OF CARE TEST ENTER/EDIT ORDERABLES Final Result * (ABNORMAL) Respiratory Viral Panel PCR (03/12/2025 11:04 AM EDT) Pathologist [facility] Adenovirus PCR Not Detected Not Detect. [facility] Bordetella pertussis PCR Not Detected Not Detect. [facility] Comment:Interpret results wi th caution. If B. pertussis isspecifically suspected, additional testing using analternate method is recommended. Bordetella parapertussis PCR Not Detected Not Detect. [facility] Chlamydia pneumoniae PCR Not Detected Not Detect. [facility] Coronavirus 229E PCR Not Detected Not Detect. [facility] Coronavirus HKU1 PCR Not Detected Not Detect. [facility] Coronavirus NL63 PCR Not Detected Not Detect. [facility] Coronavirus OC43 PCR Not Detected Not Detect. [facility] SARS-CoV-2 PCR Not Detected Not Detect. [facility] Comment:SARS-CoV-2 not detec patrick by real-time RT-PCR.Note: If clinical suspicion for Sars-CoV-2 is high, continueto maintain precautions and consider repeat testing.Test results should be interpreted in the context ofclinical findings and other laboratory data.Rare polymorphisms exist that could lead to false-negativeor false-positive results. If results do not match theclinical findings, additional testing should be considered.Results reported to [facility].This test has been authorized by the FDA under the EmergencyUse Authorization (EUA) for use by authorized laboratories. Influenza A PCR Not Detected Not Detect. [facility] Influenza A Subtype H1 Not Detected Not Detect. [facility] Influenza A H1-2009 PCR Not Detected Not Detect. [facility] Influenza A Subtype H3 Not Detected Not Detect. [facility] Influenza B PCR Not Detected Not Detect. [facility] Human metapneumovirus PCR Not Detected Not Detect. [facility] Rhino/Enterovirus PCR Detected(A) Not Detect. [facility] Mycoplasma pneumoniae PCR Not Detected Not Detect. [facility] Parainfluenza 1 PCR Not Detected Not Detect. [facility] Parainfluenza 2 PCR Not Detected Not Detect. [facility] Parainfluenza 3 PCR Not Detected Not Detect. [facility] Parainfluenza 4 PCR Not Detected Not Detect. [facility] RSV PCR Not Detected Not Detect. [facility] Resp Panel NA Note See Note [facility] Comment:All results must be correlated with [...] assay is performed by Multiplexed PCR, utilizing [employer] Film Array. 03/12/2025 11:0 4 AM EDT 03/12/2025 2:26 PM EDT us Rosemary Santiago CIGARETTE FILTER INSPECTOR LAB BLOOD ORDERABLES Final Res ult [facility] [address] [place] [phone] * Pap Smear (06/30/2024 11:04 AM EST) Swab 06/30/2024 11:0 4 AM EST 07/01/2024 10:20 AM EST Narrative [facility] - 07/06/2024 12:50 PM EST ----- ------- Name: Barb Lo Age/Sex: 49/F : 1975 Unit#: [id number] Attend Dr: JOHN BURNS [facility] Re06/30/24 Status: [facility] REF Location: [facility] Disch: ----- ------- SPEC : [id number] RECD: 07/01/24-1020 STATUS: CRISTOFER MENJIVAR NUM: [id number] PETAR: 06/30/24-[address] [facility] DR: JOHN BURNS [facility] ENTERED: 07/01/24-1043 SP TYPE: Pap Smr GERALD DR: ORDERED: Pap Smear Interpretation Satisfactory for evaluation. Negative for intraepithelial lesion or malignancy. HPV High Risk: Negative HPV Genotyping 16: Negative HPV Genotyping 18: Negative Clinical Information LMP: Postmenopausal Previous PAP test: Unknown date/findings Other surgery: Hysterectomy Material Received ThinPrep-Cervical ----- ------- Signed (signature on file) FRANKY Parsons (ASCP) 07/06/24 1250 ----- ------- END OF REPORT John Burns [facility] LAB CYTOLOGY ORDERABLES F inal Result [facility] [address] [place] [phone] * (ABNORMAL) Lipid Panel, Standard (09/23/2023 10:45 AM EDT) Triglycerides 156(H) <150 mg/dL [facility] Comment:Desirable Triglyceri de: less than 150 mg/dLBorderline High Triglyceride 150-199 mg/dLHigh Triglyceride: 200-499 mg/dLVery High Triglyceride: greater than or equal to 5OO mg/dL Cholesterol 195 <200 mg/dL [facility] Comment:Desirable Cholestero l: less than 200 mg/dLBorderline High Cholesterol: 200-239 mg/dLHigh Cholesterol: greater than 239 mg/dL LDL Cholesterol Calculated 118(H) <100 mg/dL [facility] Comment:Desirable LDL: less than 100 mg/dLNear Optimal/Above Optimal LDL: 110- 129 mg/dLBorderline High LDL: 130-159 mg/dLHigh LDL: 160-189 mg/dLVery High LDL: greater than or equal to 190 mg/dL HDL Cholesterol 46 >40 mg/dL [facility] Comment:Desirable HDL: great er than 40 mg/dL Note: This HDL assay may give artificially low results in patients with liver disease. Blood Venous blood specimen / Unknown 09/23/2023 10:45 AM EDT 09/23/2023 1:16 PM EDT Rosemary Phalen CIGARETTE FILTER INSPECTOR LAB BLOOD ORDERABLES Final Res ult [facility] [address] [place] [phone] * BI Mammogram Screening Tomosynthesis Bilateral (07/30/2023 10:25 AM EST) Anatomical Region Laterality Modality Breast Bilateral Mammography 07/30/2023 10:2 5 AM EST Narrative 08/25/2023 9:04 AM EST [facility] [address] [place] [address] Mammography Report Signed Patient: Barb Lo MR#: [id number] : 1975 Acct:[id number] Age/Sex: 48 / F ADM Date: 07/30/23 Loc: HO.MAMMO Attending Dr: Rosemary Santiago CIGARETTE FILTER INSPECTOR Ordering Physician: Rosemary Santiago Results: 2Benig n Findings Date of Service: 07/30/23 Follow Up: 1 Year From Orig ina Mammogram Procedure(s): MM tomosynthesis screening BI Accession Number(s): [id number] cc: Rosemary Santiago EXAMINATION: MM SCREENING DIGITAL [...] MD Signed By: <Electronically signed by Xiao Munore MD in OV> 08/25/23 09 DD/ 1025 TD/TT: Water Aerobics Instructor: Procedure Note Donotuseinterpreter, Image - 08/25/2023 [facility] [address] [place], [place] [address] Mammography Report Signed Patient: Barb LoMR#: [id number] : 1975Acct:[id number] Age/Sex: 48 / FADM Date: 07/30/23 Loc: HO.MAMMO Attending Dr: Rosemary Santiago CIGARETTE FILTER INSPECTOR Ordering Physician: Rosemary SantiagoPResults: 2Benig n Findings Date of Service: 07/30/23Follow Up: 1 Year From Orig ina Mammogram Procedure(s): MM tomosynthesis screening BI Accession Number(s): [id number] cc: Rosemary Santiago CIGARETTE FILTER INSPECTOR EXAMINATION: MM SCREENING DIGITAL BREAST TOMOSYNTHESIS, BILATERAL [...] by Xiao Munroe MD in OV> 08/25/23 09 DD/ 1025 TD/TT: Water Aerobics Instructor: Rosemary Santiago CIGARETTE FILTER INSPECTOR IMG BI PROCEDURES Edited Resul t - Final * Albumin, Random Urine W/O Creatinine (12/18/2022 10:04 AM EDT) Pathologist [facility] Albumin, Urine 2.9 See Note: mg/dL [facility] [place] [email or web address] Comment: Reference Range: Reference Range Not established [facility] [place] [email or web address] Comment: The ADA defines abnormalities in albumin [...] AM EDT 12/18/2022 10:04 AM EDT Narrative [facility] - 12/19/2022 5:24 PM EDT FASTING:NO FASTING: NO Karen Burns MD LAB URINE ORDERABLES Fin al Result [facility] [address], [place] [address] [facility] [place] [email or web address] [address] [place] [address] * Hepatitis C Antibody with Reflex to HCV, RNA, Quantitative, Real-Time PCR (06/06/2022 9:40 AM EST) [facility] Hepatitis C Antibody NON-REACT [place] NON-REACT [place] [facility] [place] [facility] Index 0.03 <1.00 [facility] [place] [email or web address] Comment: HCV antibody was non-reactive. There is no laboratory evidence of HCV infection. In most cases, no further action is required. However, if recent HCV exposure is suspected, a test for HCV RNA (test code 40331) is suggested. For additional information please refer to http://education.VisualDNA/faq/XZZ46y2 (This link is being provided for informational/ educational purposes only.) 06/06/2022 9:40 AM EST 06/06/2022 9:41 AM EST Narrative [facility] - 06/06/2022 8:51 PM EST FASTING:YES FASTING: YES Karen Burns MD LAB BLOOD ORDERABLES Fin al Result Performing Organization Address City/[facility]/ZIP Co de Phone Number [address], [place] [address] [facility] [place] [facility] [address], [facility] [place] [address] * HIV-1/2 Antigen and Antibodies, Fourth Generation, with Reflexes (06/06/2022 9:40 AM EST) Pathologist [facility] HIV Antigen/Antibody, 4th Generation NON-REAC TIVE NON-REAC TIVE [facility] [place] [facility] Comment: HIV-1 antigen and HIV-1/HIV-2 antibodies [...] purpose. For additional information please refer to http://education.VisualDNA/faq/YQI491 (This link is being provided for informational/ educational purposes only.) The performance of this assay has not been clinically validated in patients less than 2 years old. 06/06/2022 9:40 AM EST 06/06/2022 9:41 AM EST Narrative [facility] - 06/06/2022 8:51 PM EST FASTING:YES FASTING: YES Karen Burns MD LAB BLOOD ORDERABLES Fin al Result [address], [place] [address] [facility] [place] [facility] [address], [place] [address] from Last 3 Months or Most Recently Relevant to Health Maintenance Additional Health Concerns Active Problems Noted Date [...] 05/06/2025 Patient has chronic kidney disease 05/06/2025 Insurance [facility] C3 DENTAL-[facility] MEDICAID STAND ADULT * Guarantor: Barb Lo Account Type Relation to Patient Date of Phone Billing Address Personal/Family Self [address] Care Teams Material Spreader Relationship Specialty Start Date End Date Rosemary Santiago FNP [address] [place] [id number] PCP - General Family Medicine 02/19/23 Jules Hines, RN [address] [place] [address] Registered Nurse Family Medicine 03/16/25 Ted Hood 03/16/25
--- OUTSIDE RECORDS SUMMARY | 2025-05-06 18:50 | XMS_ITS | Clinical Summary ---
Author Organization [facility] Address [address] [place] [address] Care Team Providers Care Scale Attendant Name Role Phone Unavailable Primary Care Provider [...] complication, without long-term current use of insulin USE TO TEST BLOOD SUGARS DAILY ACCORDING [...] Center 05/11/16 Cirrhosis of liver. follows at [facility], normal liver function. suspect NAFLD History of pelvic mass: alida gn per pt, sp oophorectomy and hysterectomy also due to benign reason Overview (04/11/2016): Dr Kaia Uncontrolled type 2 diabetes mellitus without complication, without long-term current use of insulin Fibromyalgia Low back pain Overview (08/08/2016): 06/10/[address] Koenig at [facility] . Dx: neck sprain, thoracic sprain, lumbar sprain. [...] of Treatment Not on file Insurance [facility]
--- OUTSIDE RECORDS SUMMARY | 2025-05-06 18:50 | XMS_ITS ---
Author Organization [employer] Address [address] [facility] [address] [place] [address] Care Team Providers Care Heat Treat Puller Name Role Phone Rosemary Santiago Primary Care Provider [phone] Jules Hines RN Unavailable [phone] Ted Hood Unavailable [facility] Complex Status:Outreach In Progress (Enrolling) Start date:03/16/2025 Enrollment reason:Referred by provider Overview Provider Referral- 49 y/o F with uncontrolled T2Dm and significant stressors around housing. Referral to CM team, thank you. Case Team Name Relationship Phone Ted Hood(Responsible Staff) [phone] Continued Care and Services Coordination
--- OUTSIDE RECORDS SUMMARY | 2025-05-06 18:50 | XMS_ITS | Encounter Summary ---
Author Organization [employer] Address [address] [facility] [address] [place] [address] Care Team Providers Care Retention Manager Name Role Phone Rosemary Santiago Primary Care Provider [phone] Jules Hines RN Unavailable [phone] Ted Hood Unavailable Reason for Visit * Reason Onset Date Comments Nurse Triage 09/28/2024 Encounter Details Date Type Department Care Team ([facility] st Contact Info) Description 09/28/2024 Telephone [facility] [address] [place] [address] Rosemary Santiago FNP [address] [place], [place] [id number] Nurse Triage Social History Tobacco Use Types [...] call Pt reports while shopping at the [employer] yesterday (09/28/24) Pt fell over somethingon the floor at a [employer] shop. Pt fell backward but, didn't hit head. [...] instead. Pt [facility] for[facility] to see Pt. Pt requests to [...] caller accepted this outcome. Contact pt at [phone] documented in this encounter Plan of Treatment Upcoming Encounters Date Type Department Care Team ([facility] st Contact Info) Description 05/14/2025 11:15 AM EST Office Visit [facility] [address] [place] [address] Rosemary Santiago FNP [address] [place] [address] documented as of this encounter Visit Diagnoses Not on filedocumented in this encounter Additional Health Concerns Assessment Noted Time PHQ-9 Depression Total Score: 4 09/27/19 24 10:48 AM EDT documented as of this encounter Care Teams Retention Manager Relationship Specialty Start Date End Date Rosemary Santiago FNP [address] [place] [address] PCP - General Family Medicine 02/19/23 Jules Hines, DINESH [address] [place] [address] Registered Nurse Family Medicine 03/16/25 Ted Hood 03/16/25 documented as of this encounter
[2025-05-07 01:15] LABS: Bacterial Vaginosis PCR NEGATIVE (Negative); Candida Group PCR DETECTED (Not Detect); Candida glab krusei PCR NOT DETECTED (Not Detect); Trichomonas vaginalis PCR NOT DETECTED (Not Detect)
[2025-05-07 01:46] LABS: CT PCR NOT DETECTED (Not Detect.); NG PCR NOT DETECTED (Not Detect.)
== END 2025-05-06 16:18 | disposition home or self-care (01) ==
LOC: HO.LNP 16:17
PROVIDERS: Visit Provider Family Medicine
DX: N89.8 Other specified noninflammatory disorders of vagina (principal); N39.0 Urinary tract infection, site not specified; Z20.2 Contact with and (suspected) exposure to infections with a predominantly sexual mode of transmission
CPT/HCPCS: 81515; 87086; 87088; 87186; 87491; 87591